=== PATIENT | female | born 1940 | race Caucasian/White ===

== ENCOUNTER 2016-10-26 15:49 | Emergency (ER) | payer OTHER ==
[~2016-10-26] VITALS: Ht 149.9 cm; Wt 70.3 kg
[~2016-10-26 15:49] MED LIST: ALLO100T PO; AMLO5TAB2 PO; ASPI-612 PO; ATOR40TA59 PO; CLON0.2T PO; COLC0.6T34 PO; FOLI1TAB16 PO; FURO40TA4 PO; HYDR-2758 PO; HYDR200T5 PO; LEVO500T59 PO; LEVO75TA5 PO; MECL25TA3 PO; METF500T4 PO; METO200T3 PO; NYST15PO9 TP; OXYC-323 PO; PANT20TA3 PO; PANT40TA5 PO; POTA20TA12 PO; POTASSIUM CHLO10 MEQ PO; PRED2.5T PO; RIVA15TA; SOLI5TAB2 PO; SPIR25TA3 PO; TOFA5TAB PO; VALS160T3 PO; WARF2.5T83 PO; WARF3TAB7 PO; WARF5TAB7; WARF5TAB7 PO
[2016-10-26 16:08] VITALS: BP 131/79
--- NOTE | 2016-10-26 17:00 | RAD ---
Indication trauma. Fall. Single AP view of the pelvis was obtained. Additional AP and frog-leg imaging of the right hip was performed. There are some degenerative changes involving the right hip. An acute finding is not seen. Chronic deformity appearing similar to a study 10/03/2014 is noted at the symphysis. If the clinical index of suspicion for fracture remains high additional imaging with CT or MRI could be performed. IMPRESSION: No acute finding seen involving the right hip
--- NOTE | 2016-10-26 17:39 | PHYS DOC ---
Past Medical History Past Medical History: Arthritis, CAD, COPD, Hypertension Additional Past Medical Histor: esophagitis, hemorrhoids, hyperlipidemia, hiatal hernia, gastroparesis, RA Past Surgical History: Appendectomy, Hysterectomy, Tonsillectomy Additional Past Surgical Histo: cardiac cath, L ROTATOR CUFF Alcohol Use: None Drug Use: None Adult General Chief Complaint Chief Complaint: HIP PAIN HPI HPI Patient is a 76 year old female who presents with son for right hand pain and right hip/groin pain after fall 5 days ago. She slipped while transferring to meooter from bed and landed on her buttock and hand. She has constant pain since that time. She felt a pop in her right hip today, so is concerned she may have broken her hip. She has been assisted at home with normal level of care. She denies numbness, tingling, weakness, head injury, neck pain, headache , vision changes, dizziness, nausea or vomiting, abdominal pain, chest pain, dyspnea, back pain. Denies other joint pains. Review of Systems Review of Systems Constitutional: Denies fever or chills [] Eyes: Denies change in visual acuity, redness, or eye pain [] HENT: Denies nasal congestion or sore throat [] Respiratory: Denies cough or shortness of breath [] Cardiovascular: No additional information not addressed in HPI [] GI: Denies abdominal pain, nausea, vomiting, bloody stools or diarrhea [] : Denies dysuria or hematuria [] Musculoskeletal: Denies back pain [] Integument: Denies rash or skin lesions [] Neurologic: Denies headache, focal weakness or sensory changes [] Endocrine: Denies polyuria or polydipsia [] Allergies Allergies Allergies Coded Allergies Type Severity Reaction Last Updated Verified Cephalexin Monohydrate Allergy Intermediate Hives 05/12/14 Yes codeine Allergy Intermediate 05/12/14 Yes latex Allergy Intermediate 05/12/14 Yes Physical Exam Physical Exam Constitutional: Well developed, well nourished, no acute distress, non-toxic appearance. [] HENT: Normocephalic, atraumatic, bilateral external ears normal, oropharynx moist, nose normal. [] Eyes: PERRLA, EOMI. [] Neck: Normal range of motion, no tenderness, supple [] Cardiovascular:Heart rate regular rhythm [] Lungs & Thorax: Bilateral breath sounds clear to auscultation [] Abdomen: Bowel sounds normal, soft, no tenderness. [] Skin: Warm, dry, no erythema, no rash. [] Back: No tenderness, no CVA tenderness. [] Extremities: RUE with ecchymosis to dorsum of hand laterally; tenderness over 4th and 5th distal metacarpals; No other upper extremity tenderness; Can make fist/ok sign/ thumb up/finger cross and spread; Can flex/ex wrist; Good radial pulse and brisk cap refill equal bilaterally; sensation intact to light touch m/u/r nerves ; No extensor lag or rotational deformity RLE with no obvious deformity or discoloration; some groin tenderness with no visual or palpable abnormality; equal leg length; Able to flex/ex/IR/ER hip with pain, knee full rom, ankle df/pf, toes df/pf; SILT to light touch; dp and pt pulses equal bilaterally Neurologic: Alert and oriented X 3, normal motor function, normal sensory function, no focal deficits noted. [] Psychologic: Affect normal, judgement normal, mood normal. [] Current Patient Data Vital Signs Vital Signs Date Time Temp Pulse Resp B/P (MAP) Pulse Ox O2 Delivery O2 Flow Rate FiO2 10/26/16 16:08 99.2 64 16 96 Room Air 99.2 Radiology/Procedures Radiology/Procedures Right hand x-ray as interpreted by me with fifth metacarpal fracture, distal Right hip and pelvis x-ray as interpreted by me with no obvious fracture or dislocation, but degenerative changes are present CT pelvis without contrast IMPRESSION: 1. No evidence of displaced pelvic fracture. If there is persistent clinical concern for occult fracture or insufficiency fracture, MRI could better evaluate. 2. Possible slight cortical defect at the anterior left sacrum versus artifact. A small insufficiency fracture is not excluded. 3. Degenerative changes as described above. 4. Diverticulosis. Electronically signed by: Carlos Jensen MD (10/26/2016 5:49 PM) Course & Med Decision Making Course & Med Decision Making Pertinent Labs and Imaging studies reviewed. (See chart for details) She had ulnar gutter splint placed to RUE; maintained sensation to fingertips with brisk cap refill. She was offered admission for hip pain, but wanted to go home. She states she has enough help at home already. Discussed return precautions. She and son understand and agree with plan. Dragon Disclaimer Cate Disclaimer This electronic medical record was generated, in whole or in part, using a voice recognition dictation system. Departure Departure Impression: Primary Impression: Closed fracture of metacarpal of right hand Additional Impression: Right hip pain Disposition: 01 HOME, SELF-CARE Condition: STABLE Referrals: NICOLLE WHITE MD (PCP) WERO HESTER MD Patient Instructions: Hand Fracture, Metacarpals, [id number], Hip Pain Additional Instructions: Follow-up with orthopedics clinic within one week. Also follow-up with your primary care doctor. Please call for appointments. Return for any concerns. Problem Qualifiers Primary Impression: Closed fracture of metacarpal of right hand Encounter type: initial encounter Qualified Codes: S62.309A - Unspecified fracture of unspecified metacarpal bone, initial encounter for closed fracture Jl NAIK MD Oct 26, 2016 17:39
--- NOTE | 2016-10-26 17:53 | RAD ---
CT PELVIS WO CONTRAST dated 10/26/2016 4:43 PM Indication: Pain recent fall right hip pain and groin pain, fall Comparison: No comparison is available. Technique: Contiguous axial imaging of the pelvis performed with thin cut coronal and sagittal reconstructions. One or more of the following individualized dose reduction techniques were utilized for this examination: 1. Automated exposure control 2. Adjustment of the mA and/or kV according to patient size 3. Use of iterative reconstruction technique Findings: Bony alignment is anatomic. No displaced fracture. The pelvic ring is intact. Femoral necks are grossly intact. No definite fracture line. There is very slight cortical irregularity at the anterior superior left sacrum. Mild degenerative changes of the bilateral hip joint. Moderate degenerative change of the pubic symphysis with mild to moderate degenerative change of the bilateral SI joint. No sacral or coccygeal fracture. Moderate spondylotic change of the lower lumbar spine. Urinary bladder is moderately distended. There are scattered diverticula within the distal colon. Uterus is not identified and may be atrophic or surgically absent. No free fluid or lymphadenopathy. Small umbilical hernia containing only fat. IMPRESSION: 1. No evidence of displaced pelvic fracture. If there is persistent clinical concern for occult fracture or insufficiency fracture, MRI could better evaluate. 2. Possible slight cortical defect at the anterior left sacrum versus artifact. A small insufficiency fracture is not excluded. 3. Degenerative changes as described above. 4. Diverticulosis. Electronically signed by: Carlos Jensen MD (10/26/2016 5:49 PM)
--- NOTE | 2016-10-27 09:01 | RAD ---
Right hand, 3 views, 10/26/2016: History: Fall, pain The bony structures are demineralized. There is deformity of the neck of the distal fifth metacarpal compatible with an impacted fracture. This is most likely a recent fracture, however, that cannot be stated with certainty. There is no significant displacement. No other acute fracture or dislocation is identified. There are degenerative changes at scattered interphalangeal joints. More extensive degenerative change is present at the wrist with chondrocalcinosis and at the first CMC joint with periarticular calcifications. IMPRESSION: 1. Demineralization. 2. Nondisplaced distal fifth metacarpal fracture.
== END 2016-10-26 18:30 | disposition home or self-care (01) ==
LOC: ER 15:49
DX: S62.396A Other fracture of fifth metacarpal bone, right hand, initial encounter for closed fracture (principal); M25.551 Pain in right hip; E78.5 Hyperlipidemia, unspecified; I10 Essential (primary) hypertension; J44.9 Chronic obstructive pulmonary disease, unspecified; M19.90 Unspecified osteoarthritis, unspecified site; I25.10 Atherosclerotic heart disease of native coronary artery without angina pectoris; Z90.710 Acquired absence of both cervix and uterus; M06.9 Rheumatoid arthritis, unspecified; K31.84 Gastroparesis; Z91.040 Latex allergy status; Z98.61 Coronary angioplasty status; Z88.5 Allergy status to narcotic agent; W06.XXXA Fall from bed, initial encounter; Z88.8 Allergy status to other drugs, medicaments and biological substances; Y93.89 Activity, other specified; Y92.89 Other specified places as the place of occurrence of the external cause; Y99.8 Other external cause status
CPT/HCPCS: 29125; 72192; 73130; 73502; 99284-25

== ENCOUNTER 2017-04-26 10:59 | Emergency (ER) | payer OTHER ==
[~2017-04-26] VITALS: Ht 149.9 cm; Wt 62.1 kg
[~2017-04-26 10:59] MED LIST changes: -METO200T3 PO; +METO200T5 PO
[2017-04-26] MEDS ORDERED: PHENAZOPYRIDINE 200 MG TABLET. PO ONE (11:30)
[2017-04-26 11:34] LABS: BILIRUBIN,URINE NEGATIVE (NEG); GLUCOSE,URINE NEGATIVE (NEG); NITRITE,URINE NEGATIVE (NEG); PROTEIN,URINE 30 mg/dL (NEG-TRACE); UROBILINOGEN,URINE 0.2 mg/dL (0.2 mg/dL)
[2017-04-26 11:53] LABS: BACTERIA,URINE FEW /HPF (0-FEW); WBC,URINE TNTC /HPF (0-4)
[2017-04-26] MEDS ORDERED: CIPROFLOXACIN HCL 250 MG TABLET. PO ONE (12:15)
[2017-04-26] MEDS ORDERED: PHEN-318 PO (12:21)
[2017-04-26] MEDS ORDERED: CIPR250T30 PO (12:21)
--- NOTE | 2017-04-26 12:21 | PHYS DOC ---
Past Medical History Past Medical History: Arthritis, CAD, COPD, Hypertension, [place], UTI Additional Past Medical Histor: esophagitis, hemorrhoids, hyperlipidemia, hiatal hernia, gastroparesis, RA Past Surgical History: Appendectomy, Hysterectomy, Tonsillectomy Additional Past Surgical Histo: cardiac cath, L ROTATOR CUFF Alcohol Use: None Drug Use: None Adult General Chief Complaint Chief Complaint: PAIN ON URINATION HPI HPI Patient is a 77 year old female who presents by EMS with the complaint of burning with urination for about one week. Patient states she has urinary incontinence and wears a pad inside of a diaper. This is chronic for her for about a year. She has noticed over the last week burning with urination. She recently had a UTI and believes she was treated with a Z-Keyon. She did not have a urinalysis or culture with that diagnosis. Patient denies fever, denies nausea or vomiting. She doesn't believe she has a vaginal discharge or other vaginal complaints. PCP Dr Chaudhry Review of Systems Review of Systems Constitutional: Denies fever or chills [] Respiratory: Denies cough or shortness of breath [] Cardiovascular: Denies chest pain GI: As in history of present illness : As in history of present illness Current Medications Current Medications Current Medications Medications (Trade) Dose Ordered Sig/Jana Start Time Stop Time Status Last Admin Dose Admin Ciprofloxacin (Cipro) 500 mg 1X ONCE 04/26/17 12:15 04/26/17 12:16 DC 04/26/17 12:20 500 MG Phenazopyridine HCl (Pyridium) 200 mg 1X ONCE 04/26/17 11:30 04/26/17 11:31 DC 04/26/17 11:33 200 MG Allergies Allergies Allergies Coded Allergies Type Severity Reaction Last Updated Verified Cephalexin Monohydrate Allergy Intermediate Hives 05/12/14 Yes codeine Allergy Intermediate 05/12/14 Yes latex Allergy Intermediate 05/12/14 Yes Physical Exam Physical Exam Constitutional: Well developed, well nourished, no acute distress, non-toxic appearance. Alert, warm and dry, afebrile. HENT: Normocephalic, atraumatic, bilateral external ears normal, nose normal. [ ] Eyes: conjunctiva normal, no discharge. [] Neck: Normal range of motion, no stridor. [] Cardiovascular:Heart rate regular rhythm, no murmur [] Lungs & Thorax: Bilateral breath sounds clear to auscultation [] Abdomen: Bowel sounds normal, soft, no tenderness, no masses, no pulsatile masses. : External genitalia normal without discharge, rash, or skin abnormalities. Introitus/urethra normal in appearance. Skin: Warm, dry, no erythema, no rash. [] Extremities: No tenderness, no cyanosis, no clubbing, ROM intact, no edema. [] Neurologic: Alert and oriented X 3, normal motor function, no focal deficits noted. [] Current Patient Data Vital Signs Vital Signs Date Time Temp Pulse Resp B/P (MAP) Pulse Ox O2 Delivery O2 Flow Rate FiO2 04/26/17 12:32 64 123/60 (81) Room Air 04/26/17 11:00 97.8 20 93 97.8 Lab Values Laboratory Tests Test 04/26/17 11:10 Urine Collection Type U cath Urine Color Yellow Urine Clarity Turbid Urine pH 6.0 Urine Specific [place] 1.010 Urine Protein 30 mg/dL (NEG-TRACE) Urine Glucose (UA) Negative mg/dL (NEG) Urine Ketones (Stick) Negative mg/dL (NEG) Urine Blood Small (NEG) Urine Nitrite Negative (NEG) Urine Bilirubin Negative (NEG) Urine Urobilinogen Dipstick 0.2 mg/dL (0.2 mg/dL) Urine Leukocyte Esterase Large (NEG) Urine RBC 6-10 /HPF (0-2) Urine WBC Tntc /HPF (0-4) Urine Bacteria Few /HPF (0-FEW) EKG EKG [] Radiology/Procedures Radiology/Procedures [] Course & Med Decision Making Course & Med Decision Making Pertinent Labs and Imaging studies reviewed. (See chart for details) 77-year-old female presents with burning and pain with urination for one week. Her urinalysis is definitely positive for UTI. Culture was ordered. She was given a dose of Pyridium and a by mouth Cipro. We will treat her for a week with Cipro. [] Dragon Disclaimer Dragon Disclaimer This electronic medical record was generated, in whole or in part, using a voice recognition dictation system. Departure Departure Impression: Primary Impression: UTI (urinary tract infection) Disposition: 01 HOME, SELF-CARE Condition: STABLE Referrals: NICOLLE CHAUDHRY MD (PCP) Patient Instructions: Urinary Tract Infection, [id number] Additional Instructions: If not better in 2-3 days, call your doctor's office and asked them to check the culture results to see if Cipro and will work for your UTI. Scripts Ciprofloxacin Hcl (CIPRO) 250 Mg Tablet 1 TAB PO BID for UTI, #14 TAB Prov: ADI DANIELS MD 04/26/17 Phenazopyridine Hcl (PYRIDIUM) 200 Mg Tablet 200 MG PO TID for burning urination for 3 Days, #9 TAB Prov: ADI DANIELS MD 04/26/17 ADI DANIELS MD Apr 26, 2017 12:21
[2017-04-26 12:32] VITALS: BP 123/60
== END 2017-04-26 12:43 | disposition home or self-care (01) ==
LOC: ER 10:59
DX: N39.0 Urinary tract infection, site not specified (principal); M19.90 Unspecified osteoarthritis, unspecified site; I25.10 Atherosclerotic heart disease of native coronary artery without angina pectoris; J44.9 Chronic obstructive pulmonary disease, unspecified; I10 Essential (primary) hypertension; I25.2 Old myocardial infarction; E78.5 Hyperlipidemia, unspecified; Z88.1 Allergy status to other antibiotic agents; Z88.5 Allergy status to narcotic agent; Z91.040 Latex allergy status
CPT/HCPCS: 51701; 81001; 87086; 99284-25

== ENCOUNTER 2017-07-20 11:14 | Emergency (ER) | payer OTHER | END 2017-07-20 14:08 | disposition home or self-care (01) | LOC: ER 11:14 | DX: S40.011A Contusion of right shoulder, initial encounter (principal); M17.11 Unilateral primary osteoarthritis, right knee; M19.011 Primary osteoarthritis, right shoulder; E78.5 Hyperlipidemia, unspecified; G89.29 Other chronic pain; I10 Essential (primary) hypertension; I25.10 Atherosclerotic heart disease of native coronary artery without angina pectoris; J44.9 Chronic obstructive pulmonary disease, unspecified; Z90.710 Acquired absence of both cervix and uterus; Z90.49 Acquired absence of other specified parts of digestive tract; Z88.1 Allergy status to other antibiotic agents; Z88.5 Allergy status to narcotic agent; Z91.040 Latex allergy status; W18.39XA Other fall on same level, initial encounter; Y93.89 Activity, other specified; Y99.8 Other external cause status; Y92.89 Other specified places as the place of occurrence of the external cause | CPT/HCPCS: 73030; 73080; 73502; 73562; 99284 ==

== ENCOUNTER → 2017-07-28 | Outpatient (CLI) | payer OTHER | END | disposition home or self-care (01) | LOC: MRI 09:50 | DX: S43.491A Other sprain of right shoulder joint, initial encounter (principal); M75.101 Unspecified rotator cuff tear or rupture of right shoulder, not specified as traumatic; M62.511 Muscle wasting and atrophy, not elsewhere classified, right shoulder; M19.011 Primary osteoarthritis, right shoulder; M25.411 Effusion, right shoulder; M25.711 Osteophyte, right shoulder; R60.0 Localized edema; Z91.81 History of falling; X58.XXXA Exposure to other specified factors, initial encounter; Y93.89 Activity, other specified; Y92.89 Other specified places as the place of occurrence of the external cause; Y99.8 Other external cause status | CPT/HCPCS: 73221 ==

== ENCOUNTER → 2017-08-31 | Outpatient (CLI) | payer OTHER ==
[~2017-08-31] MED LIST changes: -ALLO100T PO; -AMLO5TAB2 PO; -ASPI-612 PO; -ATOR40TA59 PO; -CLON0.2T PO; -COLC0.6T34 PO; -FOLI1TAB16 PO; -FURO40TA4 PO; -HYDR-2758 PO; -HYDR200T5 PO; -LEVO500T59 PO; -LEVO75TA5 PO; +LIDOCAINE WITH 8.4% SOD BICARB 3 ML DISP.SYRIN. INJ; -MECL25TA3 PO; -METF500T4 PO; -METO200T5 PO; -NYST15PO9 TP; -OXYC-323 PO; -PANT20TA3 PO; -PANT40TA5 PO; -POTA20TA12 PO; -POTASSIUM CHLO10 MEQ PO; -PRED2.5T PO; -RIVA15TA; -SOLI5TAB2 PO; -SPIR25TA3 PO; -TOFA5TAB PO; -VALS160T3 PO; -WARF2.5T83 PO; -WARF3TAB7 PO; -WARF5TAB7; -WARF5TAB7 PO
[2017-08-31] MEDS: BUPIVACAINE 0.5% 50 ML VIAL. IJ (09:40)
[2017-08-31] MEDS: methylPREDNISolone ACETATE 40 MG/ML VIAL. INT ART (09:41)
[2017-08-31] MEDS: LIDOCAINE WITH 8.4% SOD BICARB 3 ML DISP.SYRIN. INJ (09:41)
[2017-08-31] MEDS: IOHEXOL 300 MG/ML 10ML VIAL. IJ (09:41)
== END | disposition home or self-care (01) ==
LOC: RAD 15:01
DX: M19.011 Primary osteoarthritis, right shoulder (principal)
CPT/HCPCS: 20605; 20610; 77002; J1030; J3490; Q9967

== ENCOUNTER 2017-12-02 20:13 | Inpatient (IN) | payer OTHER ==
[2017-12-02] MEDS: IV NORMAL SALINE 1000ML BAG 1,000 ML IV (20:47)
[2017-12-02] MEDS: FAMOTIDINE 20 MG/2 ML VIAL IVP (20:47)
[2017-12-02] MEDS: ONDANSETRON PF 4 MG/2 ML VIAL. IV (20:47)
[2017-12-02 21:56] LABS: ADD MAN DIFF? NO
[2017-12-02 21:58] LABS: BASO # 0.1 x10^3/uL (0.0-0.2); BASO % 0 % (0-3); EOS # 0.2 x10^3/uL (0.0-0.7); EOS % 1 % (0-3); HEMATOCRIT 30.4 % (36.0-47.0); HEMOGLOBIN 9.9 g/dL (12.0-15.5); LYMPH # 1.1 x10^3/uL (1.0-4.8); LYMPH % 8 % (24-48); MEAN CORPUSCULAR HEMOGLOBIN 26 pg (25-35); MEAN CORPUSCULAR HGB CONC 32 g/dL (31-37); MEAN CORPUSCULAR VOLUME 81 fL (79-100); MONO # 1.3 x10^3/uL (0.0-1.1); MONO % 9 % (0-9); NEUT % 81 % (31-73); PLATELET COUNT 222 x10^3/uL (140-400); RED BLOOD COUNT 3.77 x10^6/uL (3.50-5.40); RED CELL DISTRIBUTION WIDTH 21.5 % (11.5-14.5); WHITE BLOOD COUNT 13.6 x10^3/uL (4.0-11.0)
[2017-12-02 22:07] LABS: INR 1.2 (0.8-1.1); PARTIAL THROMBOPLASTIN TIME 26 SEC (24-38); PROTHROMBIN TIME PATIENT 14.9 SEC (11.7-14.0)
[2017-12-02 22:11] LABS: ANION GAP 6 (6-14); BLOOD UREA NITROGEN 38 mg/dL (7-20); BUN/CREATININE RATIO 13 (6-20); CALCIUM 8.6 mg/dL (8.5-10.1); CARBON DIOXIDE 25 mmol/L (21-32); CHLORIDE 109 mmol/L (98-107); CREATININE 2.9 mg/dL (0.6-1.0); GFR 15.7; GLUCOSE 95 mg/dL (70-99); POTASSIUM 5.4 mmol/L (3.5-5.1); SODIUM 140 mmol/L (136-145)
[2017-12-02 22:14] LABS: BILIRUBIN,URINE NEGATIVE (NEG); CLARITY,URINE CLEAR; COLOR,URINE YELLOW; GLUCOSE,URINE NEGATIVE (NEG); NITRITE,URINE NEGATIVE (NEG); PROTEIN,URINE 100 mg/dL (NEG-TRACE); UROBILINOGEN,URINE 0.2 mg/dL (0.2 mg/dL)
[2017-12-02 22:15] LABS: ANISOCYTOSIS MOD; PLT ESTIMATE ADEQUATE (ADEQUATE); POLYCHROMASIA SLIGHT
[2017-12-02 22:18] LABS: ALBUMIN 2.4 g/dL (3.4-5.0); ALBUMIN/GLOBULIN RATIO 0.7 (1.0-1.7); ALK PHOS 135 U/L (46-116); ALT (SGPT) 7 U/L (14-59); AST (SGOT) 17 U/L (15-37); LIPASE 96 U/L (73-393); MAGNESIUM 1.4 mg/dL (1.8-2.4); TOTAL BILIRUBIN 0.5 mg/dL (0.2-1.0); TOTAL PROTEIN 5.9 g/dL (6.4-8.2)
[2017-12-02 22:19] LABS: TROPONINI 0.029 ng/mL (0.000-0.055)
[2017-12-02 22:21] LABS: BACTERIA,URINE 0 /HPF (0-FEW); RBC,URINE >40 /HPF (0-2); SQUAMOUS EPITHELIAL CELL,UR OCC /LPF
[2017-12-02 22:27] LABS: CKMB MASS 1.4 ng/mL (0.0-3.6); CREATINE KINASE 41 U/L (26-192)
[2017-12-02] MEDS ORDERED: ONDANSETRON PF 4 MG/2 ML VIAL. IV (23:00)
[2017-12-02] MEDS ORDERED: DEXTROSE 50% 25 GM / 50ML DISP.SYRIN. IV (23:00)
[2017-12-02] MEDS: DEXTROSE 50% 25 GM / 50ML DISP.SYRIN. IV (23:52)
[2017-12-02] MEDS: INSULIN REGULAR 100 UNIT/ML 3ML VIAL. IV (23:52)
[2017-12-03] MEDS: NYSTATIN TOPICAL POWDER 15GM BOTTLE. TP ×3 (00:56→20:56)
[2017-12-03] MEDS: MAGNESIUM SULFATE 2GM 50 ML IV ×2 (00:57→12:16)
[2017-12-03 01:13] LABS: POC GLUCOSE 154 mg/dL (70-99)
[2017-12-03 06:07] LABS: POC GLUCOSE 65 mg/dL (70-99)
[2017-12-03 06:31] LABS: POC GLUCOSE 80 mg/dL (70-99)
[2017-12-03 06:31] LABS: POC GLUCOSE 65 mg/dL (70-99)
[2017-12-03] MEDS: INSULIN LISPRO 300 UNITS/3 ML INSULN.PEN. SQ ×3 (08:00→17:00)
[2017-12-03] MEDS: IV NORMAL SALINE 1000ML BAG 1,000 ML IV ×3 (08:26→20:56)
[2017-12-03] MEDS: IV NORMAL SALINE 500ML BAG 500 ML IV (08:26)
[2017-12-03] MEDS ORDERED: ONDANSETRON PF 4 MG/2 ML VIAL. IV (08:45)
[2017-12-03] MEDS ORDERED: C.DIFF MED SCREEN BY RX. MC (09:00)
[2017-12-03] MEDS: MAGNESIUM SULFATE 4GM 100 ML IV (10:30)
[2017-12-03] MEDS: FLECAINIDE ACETATE 50 MG TABLET. PO ×2 (11:29→20:56)
[2017-12-03] MEDS: LEVOTHYROXINE 75 MCG TABLET PO (11:29)
[2017-12-03] MEDS: PANTOPRAZOLE 40 MG TABLET.DR. PO (11:30)
[2017-12-03] MEDS: predniSONE 5 MG TABLET PO (11:30)
[2017-12-03 11:55] LABS: POC GLUCOSE 69 mg/dL (70-99)
[2017-12-03 12:20] LABS: POC GLUCOSE 90 mg/dL (70-99)
[2017-12-03 17:32] LABS: POC GLUCOSE 91 mg/dL (70-99)
[2017-12-04 00:10] LABS: POC GLUCOSE 110 mg/dL (70-99)
[2017-12-04] MEDS: IV NORMAL SALINE 1000ML BAG 1,000 ML IV ×3 (03:14→17:50)
[2017-12-04 05:03] LABS: ADD MAN DIFF? NO
[2017-12-04 05:05] LABS: BASO % 0 % (0-3); EOS # 0.1 x10^3/uL (0.0-0.7); EOS % 1 % (0-3); HEMOGLOBIN 8.2 g/dL (12.0-15.5); LYMPH # 1.3 x10^3/uL (1.0-4.8); LYMPH % 12 % (24-48); MEAN CORPUSCULAR HEMOGLOBIN 26 pg (25-35); MEAN CORPUSCULAR HGB CONC 32 g/dL (31-37); MEAN CORPUSCULAR VOLUME 82 fL (79-100); MONO # 1.1 x10^3/uL (0.0-1.1); MONO % 10 % (0-9); NEUT # 8.8 x10^3uL (1.8-7.7); NEUT % 77 % (31-73); PLATELET COUNT 186 x10^3/uL (140-400); RED BLOOD COUNT 3.18 x10^6/uL (3.50-5.40); RED CELL DISTRIBUTION WIDTH 21.4 % (11.5-14.5); WHITE BLOOD COUNT 11.4 x10^3/uL (4.0-11.0)
[2017-12-04 05:27] LABS: ALBUMIN 1.9 g/dL (3.4-5.0); ALBUMIN/GLOBULIN RATIO 0.5 (1.0-1.7); ALK PHOS 117 U/L (46-116); ALT (SGPT) 12 U/L (14-59); ANION GAP 6 (6-14); AST (SGOT) 16 U/L (15-37); BLOOD UREA NITROGEN 28 mg/dL (7-20); BUN/CREATININE RATIO 10 (6-20); CALCIUM 8.3 mg/dL (8.5-10.1); CARBON DIOXIDE 23 mmol/L (21-32); CHLORIDE 112 mmol/L (98-107); CREATININE 2.7 mg/dL (0.6-1.0); GAMMA GLUTAMYL TRANSPEPTIDASE 16 U/L (5-55); GLUCOSE 75 mg/dL (70-99); MAGNESIUM 2.7 mg/dL (1.8-2.4); POTASSIUM 4.9 mmol/L (3.5-5.1); SODIUM 141 mmol/L (136-145); TOTAL BILIRUBIN 0.3 mg/dL (0.2-1.0); TOTAL PROTEIN 5.4 g/dL (6.4-8.2)
[2017-12-04 05:57] LABS: POC GLUCOSE 82 mg/dL (70-99)
[2017-12-04] MEDS: LEVOTHYROXINE 75 MCG TABLET PO (06:26)
[2017-12-04] MEDS: INSULIN LISPRO 300 UNITS/3 ML INSULN.PEN. SQ ×3 (08:00→17:00)
[2017-12-04] MEDS: predniSONE 5 MG TABLET PO (08:11)
[2017-12-04] MEDS: PANTOPRAZOLE 40 MG TABLET.DR. PO (08:11)
[2017-12-04] MEDS: FLECAINIDE ACETATE 50 MG TABLET. PO ×2 (08:12→20:20)
[2017-12-04] MEDS: ACETAMINOPHEN 325 MG TABLET. PO (08:12)
[2017-12-04 09:06] LABS: BILIRUBIN,URINE NEGATIVE (NEG); CLARITY,URINE CLOUDY; COLOR,URINE YELLOW; GLUCOSE,URINE NEGATIVE (NEG); NITRITE,URINE NEGATIVE (NEG); PROTEIN,URINE 100 mg/dL (NEG-TRACE); UROBILINOGEN,URINE 0.2 mg/dL (0.2 mg/dL)
[2017-12-04 09:24] LABS: BACTERIA,URINE FEW /HPF (0-FEW); RBC,URINE >40 /HPF (0-2); SQUAMOUS EPITHELIAL CELL,UR FEW /LPF; WBC,URINE 20-40 /HPF (0-4)
[2017-12-04 09:25] LABS: HYALINE CASTS, URINE OCCASIONAL /HPF
[2017-12-04] MEDS: NYSTATIN TOPICAL POWDER 15GM BOTTLE. TP ×2 (10:38→20:22)
[2017-12-04 11:16] LABS: POC GLUCOSE 145 mg/dL (70-99)
[2017-12-04 16:40] LABS: POC GLUCOSE 102 mg/dL (70-99)
[2017-12-04 16:40] LABS: % SAT IRON 18 % (15-34); IRON,SERUM 37 ug/dL (50-170)
[2017-12-04 20:33] LABS: POC GLUCOSE 87 mg/dL (70-99)
[2017-12-05] MEDS: IV NORMAL SALINE 1000ML BAG 1,000 ML IV ×3 (00:30→13:50)
[2017-12-05] MEDS: LEVOTHYROXINE 75 MCG TABLET PO (06:06)
[2017-12-05] MEDS: INSULIN LISPRO 300 UNITS/3 ML INSULN.PEN. SQ ×3 (08:00→17:00)
[2017-12-05 08:04] LABS: POC GLUCOSE 81 mg/dL (70-99)
[2017-12-05] MEDS: FLECAINIDE ACETATE 50 MG TABLET. PO ×2 (08:44→21:09)
[2017-12-05] MEDS: predniSONE 5 MG TABLET PO (08:45)
[2017-12-05] MEDS: NYSTATIN TOPICAL POWDER 15GM BOTTLE. TP ×2 (08:45→21:09)
[2017-12-05] MEDS: PANTOPRAZOLE 40 MG TABLET.DR. PO (08:45)
[2017-12-05 08:49] LABS: VITAMIN-B12 343 pg/mL (247-911)
[2017-12-05 08:49] LABS: FOLATE 13.58 ng/ml (3.2-20.0)
[2017-12-05 11:20] LABS: POC GLUCOSE 114 mg/dL (70-99)
[2017-12-05] MEDS: ACETAMINOPHEN 325 MG TABLET. PO (15:48)
[2017-12-05 17:01] LABS: POC GLUCOSE 114 mg/dL (70-99)
[2017-12-06 00:57] LABS: POC GLUCOSE 103 mg/dL (70-99)
[2017-12-06] MEDS: IV NORMAL SALINE 1000ML BAG 1,000 ML IV ×3 (04:19→17:51)
[2017-12-06 04:39] LABS: ADD MAN DIFF? NO
[2017-12-06 04:55] LABS: BASO % 0 % (0-3); EOS # 0.2 x10^3/uL (0.0-0.7); EOS % 1 % (0-3); HEMATOCRIT 25.1 % (36.0-47.0); HEMOGLOBIN 8.3 g/dL (12.0-15.5); LYMPH # 1.1 x10^3/uL (1.0-4.8); LYMPH % 11 % (24-48); MEAN CORPUSCULAR HEMOGLOBIN 27 pg (25-35); MEAN CORPUSCULAR HGB CONC 33 g/dL (31-37); MEAN CORPUSCULAR VOLUME 82 fL (79-100); MONO # 1.1 x10^3/uL (0.0-1.1); MONO % 11 % (0-9); NEUT # 8.1 x10^3uL (1.8-7.7); NEUT % 77 % (31-73); PLATELET COUNT 176 x10^3/uL (140-400); RED BLOOD COUNT 3.07 x10^6/uL (3.50-5.40); RED CELL DISTRIBUTION WIDTH 22.1 % (11.5-14.5); WHITE BLOOD COUNT 10.5 x10^3/uL (4.0-11.0)
[2017-12-06] MEDS: LEVOTHYROXINE 75 MCG TABLET PO (05:50)
[2017-12-06 06:06] LABS: ANION GAP 8 (6-14); BLOOD UREA NITROGEN 25 mg/dL (7-20); CALCIUM 8.1 mg/dL (8.5-10.1); CARBON DIOXIDE 21 mmol/L (21-32); CHLORIDE 113 mmol/L (98-107); CREATININE 2.5 mg/dL (0.6-1.0); GFR 18.6; GLUCOSE 67 mg/dL (70-99); POTASSIUM 4.4 mmol/L (3.5-5.1); SODIUM 142 mmol/L (136-145)
[2017-12-06 07:59] LABS: POC GLUCOSE 62 mg/dL (70-99)
[2017-12-06] MEDS: INSULIN LISPRO 300 UNITS/3 ML INSULN.PEN. SQ ×3 (08:00→16:36)
[2017-12-06] MEDS ORDERED: ACETAMINOPHEN 325 MG TABLET. PO (08:15)
[2017-12-06] MEDS: predniSONE 10 MG TABLET PO (08:47)
[2017-12-06] MEDS: FLECAINIDE ACETATE 50 MG TABLET. PO ×2 (08:48→21:11)
[2017-12-06] MEDS: PANTOPRAZOLE 40 MG TABLET.DR. PO (08:48)
[2017-12-06] MEDS: NYSTATIN TOPICAL POWDER 15GM BOTTLE. TP ×2 (08:49→21:12)
[2017-12-06 12:17] LABS: POC GLUCOSE 142 mg/dL (70-99)
[2017-12-06 14:17] LABS: BILIRUBIN,URINE NEGATIVE (NEG); CLARITY,URINE CLEAR; COLOR,URINE YELLOW; GLUCOSE,URINE NEGATIVE (NEG); NITRITE,URINE NEGATIVE (NEG); PROTEIN,URINE 100 mg/dL (NEG-TRACE); UROBILINOGEN,URINE 0.2 mg/dL (0.2 mg/dL)
[2017-12-06 14:36] LABS: RBC,URINE >40 /HPF (0-2)
[2017-12-06 14:37] LABS: AMORPHOUS SEDIMENT,UR PRESENT /HPF; BACTERIA,URINE 0 /HPF (0-FEW); HYALINE CASTS, URINE FEW /HPF; SQUAMOUS EPITHELIAL CELL,UR FEW /LPF
[2017-12-06 16:37] LABS: POC GLUCOSE 126 mg/dL (70-99)
[2017-12-06 21:41] LABS: POC GLUCOSE 130 mg/dL (70-99)
[2017-12-07] MEDS: IV NORMAL SALINE 1000ML BAG 1,000 ML IV ×2 (01:05→13:51)
[2017-12-07 06:06] LABS: ADD MAN DIFF? NO
[2017-12-07 06:12] LABS: BASO % 0 % (0-3); EOS # 0.2 x10^3/uL (0.0-0.7); EOS % 2 % (0-3); HEMATOCRIT 24.3 % (36.0-47.0); HEMOGLOBIN 7.9 g/dL (12.0-15.5); LYMPH # 1.2 x10^3/uL (1.0-4.8); LYMPH % 11 % (24-48); MEAN CORPUSCULAR HEMOGLOBIN 27 pg (25-35); MEAN CORPUSCULAR HGB CONC 33 g/dL (31-37); MEAN CORPUSCULAR VOLUME 81 fL (79-100); MONO # 1.2 x10^3/uL (0.0-1.1); MONO % 11 % (0-9); NEUT # 8.7 x10^3uL (1.8-7.7); NEUT % 77 % (31-73); PLATELET COUNT 168 x10^3/uL (140-400); RED BLOOD COUNT 2.98 x10^6/uL (3.50-5.40); RED CELL DISTRIBUTION WIDTH 21.5 % (11.5-14.5); WHITE BLOOD COUNT 11.4 x10^3/uL (4.0-11.0)
[2017-12-07] MEDS: NYSTATIN TOPICAL POWDER 15GM BOTTLE. TP (06:23)
[2017-12-07] MEDS: LEVOTHYROXINE 75 MCG TABLET PO (06:23)
[2017-12-07 06:44] LABS: ANION GAP 8 (6-14); BLOOD UREA NITROGEN 24 mg/dL (7-20); CALCIUM 8.1 mg/dL (8.5-10.1); CARBON DIOXIDE 21 mmol/L (21-32); CHLORIDE 114 mmol/L (98-107); CREATININE 2.4 mg/dL (0.6-1.0); GFR 19.5; GLUCOSE 69 mg/dL (70-99); POTASSIUM 4.5 mmol/L (3.5-5.1); SODIUM 143 mmol/L (136-145)
[2017-12-07 07:20] LABS: POC GLUCOSE 71 mg/dL (70-99)
[2017-12-07] MEDS: INSULIN LISPRO 300 UNITS/3 ML INSULN.PEN. SQ ×2 (08:00→12:00)
[2017-12-07] MEDS: predniSONE 10 MG TABLET PO (08:16)
[2017-12-07] MEDS: PANTOPRAZOLE 40 MG TABLET.DR. PO (08:17)
[2017-12-07] MEDS: FLECAINIDE ACETATE 50 MG TABLET. PO (08:17)
[2017-12-07] MEDS: METOPROLOL SUCC 24HR ER 100 MG TAB.ER.24H. PO (11:02)
[2017-12-07 11:17] LABS: POC GLUCOSE 82 mg/dL (70-99)
== END 2017-12-07 17:13 | disposition home or self-care (01) | DRG 682 ==
LOC: ER 20:13 → 5 SOUTH 23:00
DX: N17.0 Acute kidney failure with tubular necrosis (principal); E43 Unspecified severe protein-calorie malnutrition; I13.0 Hypertensive heart and chronic kidney disease with heart failure and stage 1 through stage 4 chronic kidney disease, or unspecified chronic kidney disease; K52.9 Noninfective gastroenteritis and colitis, unspecified; B37.3 Candidiasis of vulva and vagina; D50.9 Iron deficiency anemia, unspecified; D63.8 Anemia in other chronic diseases classified elsewhere; E03.9 Hypothyroidism, unspecified; E11.22 Type 2 diabetes mellitus with diabetic chronic kidney disease; E11.649 Type 2 diabetes mellitus with hypoglycemia without coma; E78.00 Pure hypercholesterolemia, unspecified; E78.5 Hyperlipidemia, unspecified; E83.42 Hypomagnesemia; E86.0 Dehydration; E87.5 Hyperkalemia; I95.9 Hypotension, unspecified; R33.9 Retention of urine, unspecified; N18.3 Chronic kidney disease, stage 3 (moderate); R31.29 Other microscopic hematuria; I50.9 Heart failure, unspecified; I25.10 Atherosclerotic heart disease of native coronary artery without angina pectoris; I48.0 Paroxysmal atrial fibrillation; J44.9 Chronic obstructive pulmonary disease, unspecified; K21.9 Gastro-esophageal reflux disease without esophagitis; M06.9 Rheumatoid arthritis, unspecified; M19.90 Unspecified osteoarthritis, unspecified site; M79.7 Fibromyalgia; Z79.52 Long term (current) use of systemic steroids; I25.2 Old myocardial infarction; Z79.82 Long term (current) use of aspirin; Z83.3 Family history of diabetes mellitus; Z90.49 Acquired absence of other specified parts of digestive tract; Z90.710 Acquired absence of both cervix and uterus; Z90.89 Acquired absence of other organs; Z87.440 Personal history of urinary (tract) infections; Z88.5 Allergy status to narcotic agent; Z88.8 Allergy status to other drugs, medicaments and biological substances; Z91.040 Latex allergy status; Z80.9 Family history of malignant neoplasm, unspecified; Z82.49 Family history of ischemic heart disease and other diseases of the circulatory system; Z79.899 Other long term (current) drug therapy; Z68.36 Body mass index [BMI] 36.0-36.9, adult
CPT/HCPCS: 36415; 51701; 74176; 80048; 80053; 81001; 82553; 82607; 82746; 82962; 82977; 83540; 83550; 83690; 83735; 84484; 85025; 85610; 85730; 87086; 93005; 96361; 96374; 96375; 97162-GP; 97165-GO; 97530-GP; 99291; 99291-25; J1815; J2405; J3475; J7030; J7040; J7042; J7512; S0028

== ENCOUNTER 2018-01-12 16:18 | Inpatient (IN) | payer OTHER ==
[~2018-01-12] VITALS: Ht 149.9 cm; Wt 78.6 kg
[~2018-01-12 16:18] MED LIST changes: +ALLO100T PO; +AMLO5TAB7 PO; +ASPI-612 PO; +ASPI-630 PO; +ATOR20TA58 PO; +ATOR40TA59 PO; +CIPR250T30 PO; +CLON0.2T PO; +COLC0.6T34 PO; +COLE1TAB PO; +DICY10CA3 PO; +DIPH1TAB PO; +FLEC50TA PO; +FOLI1TAB16 PO; +FURO40TA4 PO; +GABA100C6 PO; +HYDR-2758 PO; +HYDR200T5 PO; +LACT1TAB6 PO; +LEVO500T59 PO; +LEVO75TA5 PO; -LIDOCAINE WITH 8.4% SOD BICARB 3 ML DISP.SYRIN. INJ; +MECL25TA3 PO; +METF500T16 PO; +METO-247 PO; +METO200T46 PO; +NYST15PO9 TP; +OMEP40CA5 PO; +OXYC-323 PO; +PANT20TA3 PO; +PANT40TA5 PO; +PHEN-318 PO; +POTA10TA12 PO; +POTA20TA12 PO; +PRED2.5T PO; +PRED5TAB PO; +RIVA15TA; +SOLI5TAB2 PO; +SPIR25TA5 PO; +SUCR1ORA5 PO; +TOFA5TAB PO; +VALS160T3 PO; +WARF-31; +WARF-31 PO; +WARF2.5T83 PO; +WARF3TAB50 PO
--- NOTE | 2018-01-12 17:20 | PHYS DOC ---
Past Medical History Past Medical History: Arthritis, CAD, COPD, Diabetes-Type II, GERD, High Cholesterol, Hypertension, Hypothyroid, [place], UTI Additional Past Medical Histor: esophagitis, hemorrhoids, hyperlipidemia, hiatal hernia, gastroparesis, RA Past Surgical History: Appendectomy, Hysterectomy, Tonsillectomy Additional Past Surgical Histo: cardiac cath, L ROTATOR CUFF Alcohol Use: None Drug Use: None Adult General Chief Complaint Chief Complaint: OTHER COMPLAINTS HPI HPI 77-year-old female presents to ER via EMS from her residence where she lives alone. Patient reports she called for assistance as she has had issues getting her medications from local pharmacies. On further discussion with patient she reports she has had decreased mobility with bilateral lower extremity swelling- with being out of her lasix for past 4 days. Patient reports she's had difficulty caring for herself as she has not had home assistance since Monday. Pt reports she has been able to use her w/c to get to microwave to make potpies - last food intake was this morning. She denies CP, palpitations, abd pain, or N /V. She reports she has had diarrhea and does have smell of feces on her at time of initial exam. Pt reports she wears brief and does have chronic incontinence. Pt reports she wears 3L O2 with hx of COPD but has felt more SOA in past couple of days. She reports she had temp. 102 degrees 2 days ago- denies fever today. She reports she has had less urinary output with less fld intake this week. Review of Systems Review of Systems Constitutional: Reports fever 2 days ago with increased generalized weakness/ fatigue Eyes: Denies change in visual acuity, redness, or eye pain [] HENT: Denies nasal congestion or sore throat [] Respiratory: Denies cough. Reports increased SOA in past 2 days even with 3L O2 on at home Cardiovascular: Denies CP/palpitations GI: Denies abdominal pain, nausea, vomiting, bloody stools. Reports diarrhea in past 2 days : Denies dysuria or hematuria. Reports hx of incontinence- less urine output in past 2 days Musculoskeletal: Reports chronic pain with no acute changes Integument: Denies rash or skin lesions. Reports swelling in bilat. LEs Neurologic: Denies headache, focal weakness or sensory changes [] Endocrine: Denies polyuria or polydipsia [] All other systems were reviewed and found to be within normal limits, except as documented in this note. Allergies Allergies Allergies Coded Allergies Type Severity Reaction Last Updated Verified Cephalexin Monohydrate Allergy Intermediate Hives 05/12/14 Yes codeine Allergy Intermediate 05/12/14 Yes latex Allergy Intermediate 05/12/14 Yes Physical Exam Physical Exam Constitutional: Well developed, well nourished, no acute distress, non-toxic appearance. Appears fatigued on exam HENT: Normocephalic, atraumatic, bilateral ears normal, mucous membranes pink/ dry, no oral exudates, nose normal. [] Eyes: PERRLA, no nystagmus, conjunctiva normal, no discharge. [] Neck: Normal range of motion, no tenderness, supple, no gross adenopathy Cardiovascular:Heart rate regular rhythm, no murmur [] Lungs & Thorax: Bilateral breath sounds clear to auscultation- diminished in bases. Resp. equal/nonlabored Abdomen: Bowel sounds normal, soft/obese- nondistended, no tenderness, no masses , no pulsatile masses. [] Skin: Warm, dry, no erythema, no rash. [] Back: Chronic back pain with repositioning- reports no acute changes, no CVA tenderness. [] Extremities: No tenderness, no cyanosis, no clubbing, ROM intact, 1-2+ bilat. pitting pedal edema Neurologic: Alert and oriented X 3, normal motor function, normal sensory function, no focal deficits noted. [] Psychologic: Affect normal, judgement normal, mood normal. [] Current Patient Data Vital Signs Vital Signs Date Time Temp Pulse Resp B/P (MAP) Pulse Ox O2 Delivery O2 Flow Rate FiO2 01/12/18 19:30 92 20 125/58 (80) 96 3.0 01/12/18 18:26 Nasal Cannula 01/12/18 16:18 98.2 98.2 Lab Values Laboratory Tests Test 01/12/18 17:40 White Blood Count 16.5 x10^3/uL (4.0-11.0) H Red Blood Count 3.33 x10^6/uL (3.50-5.40) L Hemoglobin 9.0 g/dL (12.0-15.5) L Hematocrit 28.1 % (36.0-47.0) L Mean Corpuscular Volume 84 fL (79-100) Mean Corpuscular Hemoglobin 27 pg (25-35) Mean Corpuscular Hemoglobin Concent 32 g/dL (31-37) Red Cell Distribution Width 18.9 % (11.5-14.5) H Platelet Count 234 x10^3/uL (140-400) Neutrophils (%) (Auto) 81 % (31-73) H Lymphocytes (%) (Auto) 10 % (24-48) L Monocytes (%) (Auto) 7 % (0-9) Eosinophils (%) (Auto) 1 % (0-3) Basophils (%) (Auto) 1 % (0-3) Neutrophils # (Auto) 13.3 x10^3uL (1.8-7.7) H Lymphocytes # (Auto) 1.7 x10^3/uL (1.0-4.8) Monocytes # (Auto) 1.2 x10^3/uL (0.0-1.1) H Eosinophils # (Auto) 0.2 x10^3/uL (0.0-0.7) Basophils # (Auto) 0.1 x10^3/uL (0.0-0.2) Segmented Neutrophils % 86 % (35-66) H Lymphocytes % 8 % (24-48) L Monocytes % 6 % (0-10) Platelet Estimate Adequate (ADEQUATE) Polychromasia Slight Sodium Level 136 mmol/L (136-145) Potassium Level 4.8 mmol/L (3.5-5.1) Chloride Level 98 mmol/L (98-107) Carbon Dioxide Level 28 mmol/L (21-32) Anion Gap 10 (6-14) Blood Urea Nitrogen 34 mg/dL (7-20) H Creatinine 2.5 mg/dL (0.6-1.0) H Estimated GFR (Cockcroft-Gault) 18.6 BUN/Creatinine Ratio 14 (6-20) Glucose Level 82 mg/dL (70-99) Lactic Acid Level 1.3 mmol/L (0.4-2.0) Calcium Level 8.7 mg/dL (8.5-10.1) Magnesium Level 1.8 mg/dL (1.8-2.4) Total Bilirubin 0.5 mg/dL (0.2-1.0) Aspartate Amino Transferase (AST) 22 U/L (15-37) Alanine Aminotransferase (ALT) 18 U/L (14-59) Alkaline Phosphatase 115 U/L (46-116) Creatine Kinase 51 U/L (26-192) Creatine Kinase MB (Mass) 1.0 ng/mL (0.0-3.6) Creatine Kinase MB Relative Index % (0-4) Troponin I Quantitative 0.023 ng/mL (0.000-0.055) VF-Weu-K-Type Natriuretic Peptide 2516 pg/mL (0-449) H Total Protein 7.0 g/dL (6.4-8.2) Albumin 2.4 g/dL (3.4-5.0) L Albumin/Globulin Ratio 0.5 (1.0-1.7) L Laboratory Tests 01/12/18 17:40 Laboratory Tests 01/12/18 17:40 EKG EKG [] Radiology/Procedures Radiology/Procedures AP chest. HISTORY: COPD, short of breath AP view was taken of the chest. There is marked arthritis in the right shoulder. There is a shoulder prosthesis on the left. The aorta is enlarged and mildly tortuous. The heart is upper normal in size. There is no effusion. There are no confluent infiltrates. There is tortuosity of the great vessels. IMPRESSION: 1. No acute infiltrates. 2. Mildly enlarged tortuous thoracic aorta. Electronically signed by: Je Jacob MD (01/12/2018 8:59 PM) [facility] DICTATED and SIGNED BY: JE JACOB MD DATE: 01/12/182057 Course & Med Decision Making Course & Med Decision Making Pertinent Labs and Imaging studies reviewed. (See chart for details) During initial exam with pt reporting she was having difficulty caring for herself at home along with issues obtaining prescriptions- admission was discussed and pt was agreeable. 1954: Spoke with Dr. Ta peralta for Dr. White and discussed pt's case and plans for admission. Will place case management consult with admit orders as pt is having difficulty caring for self at home. Dragon Disclaimer Dragon Disclaimer This electronic medical record was generated, in whole or in part, using a voice recognition dictation system. Departure Departure Impression: Primary Impression: Generalized weakness Additional Impression: Total self-care deficit Disposition: ADMITTED INPATIENT Admitting Physician: Anibal White Condition: STABLE Referrals: ANIBAL WHITE MD (PCP) Problem Qualifiers REFFITT,EDISON M ACID DUMPER Jan 12, 2018 17:20
[2018-01-12 18:00] LABS: BASO # 0.1 x10^3/uL (0.0-0.2); BASO % 1 % (0-3); EOS # 0.2 x10^3/uL (0.0-0.7); EOS % 1 % (0-3); HEMATOCRIT 28.1 % (36.0-47.0); LYMPH # 1.7 x10^3/uL (1.0-4.8); LYMPH % 10 % (24-48); MEAN CORPUSCULAR HEMOGLOBIN 27 pg (25-35); MEAN CORPUSCULAR HGB CONC 32 g/dL (31-37); MEAN CORPUSCULAR VOLUME 84 fL (79-100); MONO # 1.2 x10^3/uL (0.0-1.1); MONO % 7 % (0-9); NEUT # 13.3 x10^3uL (1.8-7.7); NEUT % 81 % (31-73); PLATELET COUNT 234 x10^3/uL (140-400); RED BLOOD COUNT 3.33 x10^6/uL (3.50-5.40); RED CELL DISTRIBUTION WIDTH 18.9 % (11.5-14.5); WHITE BLOOD COUNT 16.5 x10^3/uL (4.0-11.0)
[2018-01-12 18:17] LABS: CALCIUM 8.7 mg/dL (8.5-10.1); CREATININE 2.5 mg/dL (0.6-1.0); GFR 18.6; POTASSIUM 4.8 mmol/L (3.5-5.1)
[2018-01-12 18:32] LABS: % LYMPHS 8 % (24-48); % MONOS 6 % (0-10); % SEGS 86 % (35-66); ALBUMIN 2.4 g/dL (3.4-5.0); ALBUMIN/GLOBULIN RATIO 0.5 (1.0-1.7); MAGNESIUM 1.8 mg/dL (1.8-2.4); TOTAL BILIRUBIN 0.5 mg/dL (0.2-1.0)
--- NOTE | 2018-01-12 18:39 | EKG ---
[facility] [address] [place] [address] Test Date: 2018-01-12 Test Time: 17:09:35 Pat Name: JUANY STEARNS Department: Room: Gender: F Stranner: : 1940 Requested By: EDISON ANTOINE Order Number: [id number] Reading MD: John Brannon MD Measurements Intervals [place] Rate: 94 P: 180 IL: 176 QRS: -144 QRSD: 92 T: 155 QT: 334 QTc: 422 Interpretive Statements SINUS RHYTHM LIMB LEAD MISPLACEMENT Electronically Signed On 01-13-2018 7:02:37 CDT by John Brannon MD
[2018-01-12 18:47] LABS: PLT ESTIMATE ADEQUATE (ADEQUATE)
[2018-01-12 18:50] LABS: POLYCHROMASIA SLIGHT
[2018-01-12 20:24] LABS: BILIRUBIN,URINE NEGATIVE (NEG); CLARITY,URINE CLEAR; COLOR,URINE YELLOW; NITRITE,URINE NEGATIVE (NEG); PROTEIN,URINE 100 mg/dL (NEG-TRACE); UROBILINOGEN,URINE 0.2 mg/dL (0.2 mg/dL)
[2018-01-12 20:25] LABS: CREATINE KINASE 51 U/L (26-192)
[2018-01-12 20:34] LABS: BACTERIA,URINE FEW /HPF (0-FEW); RBC,URINE >40 /HPF (0-2); SQUAMOUS EPITHELIAL CELL,UR OCC /LPF
[2018-01-12 20:58] VITALS: BP 137/68
--- NOTE | 2018-01-12 21:03 | RAD ---
AP chest. HISTORY: COPD, short of breath AP view was taken of the chest. There is marked arthritis in the right shoulder. There is a shoulder prosthesis on the left. The aorta is enlarged and mildly tortuous. The heart is upper normal in size. There is no effusion. There are no confluent infiltrates. There is tortuosity of the great vessels. IMPRESSION: 1. No acute infiltrates. 2. Mildly enlarged tortuous thoracic aorta. Electronically signed by: Je Jacob MD (01/12/2018 8:59 PM) [facility]
[2018-01-12] MEDS ORDERED: POLY17PO29 PO (22:22)
[2018-01-12] MEDS ORDERED: DOCU100C28 PO (22:22)
[2018-01-12] MEDS ORDERED: AMLO5TAB7 PO (22:22)
[2018-01-12] MEDS ORDERED: HYDR-2762 PO (22:22)
[2018-01-12 23:24] VITALS: BP 108/84
[2018-01-13 03:14] VITALS: BP 113/54
[2018-01-13 07:10] VITALS: BP 133/61
[2018-01-13 08:09] LABS: BASO % 0 % (0-3); EOS # 0.1 x10^3/uL (0.0-0.7); EOS % 1 % (0-3); HEMATOCRIT 24.6 % (36.0-47.0); LYMPH # 1.1 x10^3/uL (1.0-4.8); LYMPH % 9 % (24-48); MEAN CORPUSCULAR HEMOGLOBIN 28 pg (25-35); MEAN CORPUSCULAR HGB CONC 33 g/dL (31-37); MEAN CORPUSCULAR VOLUME 85 fL (79-100); MONO # 0.9 x10^3/uL (0.0-1.1); MONO % 8 % (0-9); NEUT # 9.2 x10^3uL (1.8-7.7); NEUT % 81 % (31-73); PLATELET COUNT 209 x10^3/uL (140-400); RED CELL DISTRIBUTION WIDTH 18.1 % (11.5-14.5); WHITE BLOOD COUNT 11.4 x10^3/uL (4.0-11.0)
[2018-01-13 08:40] LABS: CREATININE 2.6 mg/dL (0.6-1.0); GFR 17.8; POTASSIUM 4.3 mmol/L (3.5-5.1)
[2018-01-13] MEDS ORDERED: ACETAMINOPHEN 325 MG TABLET. PO PRN (10:00)
[2018-01-13] MEDS: LEVOTHYROXINE 75 MCG TABLET PO SCH (10:30)
[2018-01-13 11:13] VITALS: BP 116/60
[2018-01-13] MEDS: FLECAINIDE ACETATE 50 MG TABLET. PO SCH ×2 (11:29→20:38)
[2018-01-13] MEDS: HYDROXYCHLOROQUINE 200 MG TABLET PO SCH ×2 (11:30→20:39)
[2018-01-13] MEDS: HYDROcodone/APAP 7.5/325MG 1 TAB TABLET PO PRN (11:30)
[2018-01-13] MEDS: LACTOBACILLUS RHAMNOSUS GG 1 CAPSULE. PO SCH (11:30)
[2018-01-13] MEDS: DOCUSATE SODIUM 100 MG CAPSULE. PO SCH ×2 (11:31→20:38)
[2018-01-13] MEDS: METOPROLOL SUCC 24HR ER 100 MG TAB.ER.24H. PO SCH (11:31)
[2018-01-13] MEDS: ASPIRIN CHEWABLE 81 MG TABLET. PO SCH (11:32)
[2018-01-13] MEDS: FUROSEMIDE 40 MG TABLET. PO SCH ×2 (11:32→13:46)
[2018-01-13] MEDS: predniSONE 10 MG TABLET PO SCH (11:32)
[2018-01-13] MEDS: FOLIC ACID 1 MG TABLET. PO SCH (11:32)
[2018-01-13] MEDS: PANTOPRAZOLE 40 MG TABLET.DR. PO SCH (11:32)
[2018-01-13] MEDS: POTASSIUM CHLORIDE 10 MEQ TABLET.ER. PO SCH (11:33)
[2018-01-13] MEDS: amLODIPine BESYLATE 5 MG TABLET PO SCH (11:33)
--- NOTE | 2018-01-13 12:03 | PDOC ---
Provider Note Provider Note Patient seen. History and Physical dictated. See dictation# [id number] MARION CASTILLO MD Jan 13, 2018 12:03
--- NOTE | 2018-01-13 12:39 | HP ---
ADMIT DATE: 01/12/2018 ADMITTING PHYSICIAN: Dr. Chaudhry. HISTORY OF PRESENT ILLNESS: This is a 77-year-old female who lives alone at home and has become weaker for the last few days. Her granddaughter was sick and then she started having some congestion. Now, her congestion is improving, but she remains very weak. Mucus is clear. She denies any fever or chills, but she thought that she was coming down with the flu. She also was getting help from her granddaughter, who was her caregiver, but she found another job, so she has nobody at home to help her. She lives in an assisted living facility. Her pharmacy [facility] is also closed; so for last several days, she has not had any medications because nobody could deliver medications to her. Because of her weakness and inability to care for herself, she came to the Emergency Room. In the Emergency Room, she was evaluated. Her white count was 16.5. The patient denies any dysuria, but about 2-1/2 weeks ago, she had a cystoscopy for hematuria and as per patient. Cystoscopy was negative. She recently had admission at the end of November for gastroenteritis and hematuria. As noted earlier, cystoscopy was negative. Because of the leukocytosis, weakness and inability to care for herself, she could not even get up in the ER, it was decided to go ahead and admit the patient for further evaluation and management. REVIEW OF SYSTEMS: The patient admits to some joint pains, back pain and weakness. She has some cough and congestion, but no significant expectoration. No fever or chills. From talking to her, her weakness and her physical condition has not really changed much, but over a period of years, has been gradually declining. She denies any nausea or vomiting, but has had diarrhea since yesterday. She has been on prednisone at home for COPD. The patient denies any chest pains, palpitations, dyspnea or dizziness. Other systems reviewed and are negative. PAST MEDICAL HISTORY: As noted earlier, she was recently admitted on 12/03/2017. She has a motorized wheelchair at home. She has a history of falls, osteoarthritis. Apparently, she is on prednisone actually for her arthritis. She has COPD, coronary artery disease, hypertension, urinary tract infections, atrial fibrillation, and rheumatoid arthritis, recent. She had recent hematuria with negative cystoscopy per patient. PAST SURGICAL HISTORY: The patient had appendectomy, hysterectomy, tonsillectomy, rotator cuff surgery and cardiac catheterization and colonoscopy. ALLERGIES: THE PATIENT IS ALLERGIC TO KEFLEX, CODEINE AND LATEX. MEDICATIONS: I have reviewed the medications. The patient is on prednisone 10 mg daily. PERSONAL HISTORY: No history of smoking, alcoholism or drug abuse. The patient lives by herself and has no caregivers at this time and she uses motorized wheelchair. PHYSICAL EXAMINATION: VITAL SIGNS: Temperature 98.8, pulse 93 per minute, respirations 16 per minute, blood pressure 133/61 mmHg. GENERAL: The patient is alert, oriented x 3 and not in acute distress. EYES: Pupils equal, reacting to light. Conjunctivae are pale. Sclerae are muddy. HEENT: Unremarkable except for minimal congestion. NECK: Supple. JVP normal. No thyromegaly. Trachea is midline. LUNGS: Clear with decreased breath sounds at bases. CARDIOVASCULAR: S1, S2 regular. ABDOMEN: Soft, nontender, no guarding, no rigidity. Bowel sounds present. EXTREMITIES: No edema. CENTRAL NERVOUS SYSTEM: Generalized weakness. No acute changes noted. LABORATORY FINDINGS: WBC count was 16.5 yesterday and today it is 11.4, hemoglobin 9 yesterday, 8 today. Platelet count was 234,000 yesterday. Sodium 136, potassium 4.8, BUN 34, creatinine 2.5. Today, creatinine is 2.6, this is her baseline. BNP is 2516. Troponin level is normal. Albumin 2.4. Urinalysis shows large blood, small leukocyte esterase, greater than rbc's, wbc's 1-4, few bacteria. Blood culture was just reported by the lab to be initially positive with gram variable rods. Chest x-ray shows no acute infiltrates, mildly enlarged tortuous thoracic aorta. IMPRESSION: 1. Acute bronchitis, viral, improving. 2. Diarrhea, etiology not clear. 3. Recurrent urinary tract infections. The patient has also history of hematuria and had cystoscopy 2-1/2 weeks ago. 4. Leukocytosis, improving, etiology not clear. The patient is also on prednisone. 5. Gram variable rods bacteremia, etiology not clear. 6. Weakness. 7. Chronic obstructive pulmonary disease. 8. Hypertension. 9. Coronary artery disease. 10. History of rheumatoid arthritis. 11. History of recurrent falls. 12. Osteoarthritis. 13. Lack of social support. PLAN: I will consult Dr. Gr to see if she needs any antibiotics. Clinically, she seems to be stable other than being weak and not having anyone to help her at home. We will follow up on the blood cultures to see if we need to put her on any antibiotics because of her history of recurrent UTI, abnormal UA as well as a leukocytosis and abnormal blood culture. Consultation has been obtained with Dr. Jenkins for rehab evaluation and management and Dr. Gr for Infectious Disease evaluation and management. I will recheck labs tomorrow. Clinically, the patient appears to be stable at this time. For details, please refer to the orders. MARION CASTILLO MD DR: SKYE/nts JOB#: [id number] / [id number]
[2018-01-13] MEDS ORDERED: cefTRIAXone IV Push 1 GM VIAL. IVP SCH (13:00)
[2018-01-13] MEDS: GABAPENTIN 100 MG CAPSULE. PO SCH ×2 (13:46→20:38)
--- NOTE | 2018-01-13 15:16 | CONS ---
DATE OF CONSULTATION: 01/13/2018 ATTENDING PHYSICIAN: Dr. Chaudhry. The patient was seen at the request of Dr. Chaudhry for rehab evaluation. HISTORY OF PRESENT ILLNESS: This is a 77-year-old female known to me, admitted through the Emergency Room where she lives alone. The patient is having difficulty getting her medication delivered from [facility] since it was closed. The patient with known osteoarthritis, status post left rotator cuff repair. She had right rotator cuff arthropathy with significant pain on any movement; coronary artery disease; chronic obstructive pulmonary disease, uses oxygen by nasal cannula on a regular basis, 3 liters per minute; diabetes mellitus with peripheral neuropathy; gastroesophageal reflux disease; hyperlipidemia; hypertension; hypothyroidism; previous myocardial infarction; urinary tract infection; esophagitis; hemorrhoids; hiatal hernia; gastroparesis; rheumatoid arthritis; status post appendectomy; hysterectomy; tonsillectomy; left rotator cuff repair. ALLERGIES: Known allergic to CEPHALEXIN, CODEINE and LATEX. SOCIAL HISTORY: She lives alone. REVIEW OF SYSTEMS: She has not walked in several years. She usually gets around in a wheelchair. She is having some difficulty to try to get out of the bed with regular kind of mattress. The patient admits pain in her knees. She is not interested in any injections. The patient also admits urinary and stool incontinence. She is having diarrhea for about a week. PHYSICAL EXAMINATION: GENERAL: Examination today revealed an elderly female. She is alert, oriented to time, place, person and circumstance and follows commands appropriately. MUSCULOSKELETAL: Moves all 4 extremities voluntarily where she had generalized muscle weakness, more so around right shoulder, around both knees. She had deformity of both feet, toes and also both thumbs secondary to degenerative changes with muscle atrophy involving right shoulder girdle muscles and thenar eminence muscles in both hands. The patient had crepitus on range of motion of right shoulder and both knees with obvious knee joint effusion. The patient had absent knee and ankle jerks. She had decreased sensory perception in her thighs when compared to both feet. She requires some help with bed mobility. I have not tested her transfers or ambulation skills at this time. She had tenderness to palpation over lumbar spine area and both shoulders and knees. Her skin is intact at this time. ASSESSMENT: Mobility and self-care limitation in a patient with painful degenerative joint disease of both knees and right rotator cuff arthropathy, status post left rotator cuff repair in the past, chronic lower back pain from degenerative disk disease and degenerative joint disease without any clinical evidence of ongoing lumbar radiculopathy. Diabetes mellitus with peripheral neuropathy. The patient with known coronary artery disease, chronic obstructive pulmonary disease, gastroesophageal reflux disease, hypercholesterolemia, hypertension, hypothyroidism, previous myocardial infarction, frequent urinary tract infections, esophagitis, hemorrhoids, hiatal hernia, gastroparesis, rheumatoid arthritis. RECOMMENDATION: To ask Physical Therapy to concentrate on safety with transfers. To ask social work nurse to try to see whether she can get a hospital bed for use at home, easy for her to get in and into the bed. She would like to have an indwelling Dowd catheter placed until she goes home. Dr. Chaudhry and Dr. Ladonna Roberto, I appreciate asking me to participate in the care of this interesting patient. I will be glad to follow her with you as needed for rehabilitation. REGI VALDEZ MD DR: GARRY/duncan JOB#: [id number] / [id number]
[2018-01-13 15:36] VITALS: BP 164/49
[2018-01-13 19:51] VITALS: BP 114/54
[2018-01-13] MEDS: ATORVASTATIN CALCIUM 20 MG TABLET PO SCH (20:38)
[2018-01-13] MEDS: COLESTIPOL HCL 1 GM TABLET PO SCH (20:39)
[2018-01-13 23:29] VITALS: BP 136/67
[2018-01-14 03:25] VITALS: BP 111/56
[2018-01-14 05:28] LABS: BASO % 0 % (0-3); EOS % 0 % (0-3); HEMATOCRIT 24.2 % (36.0-47.0); LYMPH # 0.9 x10^3/uL (1.0-4.8); LYMPH % 8 % (24-48); MEAN CORPUSCULAR HEMOGLOBIN 28 pg (25-35); MEAN CORPUSCULAR HGB CONC 33 g/dL (31-37); MEAN CORPUSCULAR VOLUME 84 fL (79-100); MONO # 0.7 x10^3/uL (0.0-1.1); MONO % 6 % (0-9); NEUT # 9.9 x10^3uL (1.8-7.7); NEUT % 86 % (31-73); PLATELET COUNT 242 x10^3/uL (140-400); RED BLOOD COUNT 2.86 x10^6/uL (3.50-5.40); RED CELL DISTRIBUTION WIDTH 18.1 % (11.5-14.5); WHITE BLOOD COUNT 11.6 x10^3/uL (4.0-11.0)
[2018-01-14 05:39] LABS: ALBUMIN 2.1 g/dL (3.4-5.0); ALBUMIN/GLOBULIN RATIO 0.5 (1.0-1.7); CALCIUM 8.2 mg/dL (8.5-10.1); CREATININE 2.6 mg/dL (0.6-1.0); GFR 17.8; MAGNESIUM 1.7 mg/dL (1.8-2.4); POTASSIUM 4.6 mmol/L (3.5-5.1); TOTAL BILIRUBIN 0.3 mg/dL (0.2-1.0)
[2018-01-14] MEDS: LEVOTHYROXINE 75 MCG TABLET PO SCH ×2 (06:15→14:05)
[2018-01-14 07:00] VITALS: BP 145/66
[2018-01-14] MEDS: HYDROXYCHLOROQUINE 200 MG TABLET PO SCH ×2 (08:56→19:52)
[2018-01-14] MEDS: LACTOBACILLUS RHAMNOSUS GG 1 CAPSULE. PO SCH (08:56)
[2018-01-14] MEDS: FLECAINIDE ACETATE 50 MG TABLET. PO SCH ×2 (08:56→19:52)
[2018-01-14] MEDS: predniSONE 10 MG TABLET PO SCH (08:57)
[2018-01-14] MEDS: DOCUSATE SODIUM 100 MG CAPSULE. PO SCH ×2 (08:57→19:52)
[2018-01-14] MEDS: FOLIC ACID 1 MG TABLET. PO SCH (08:57)
[2018-01-14] MEDS: PANTOPRAZOLE 40 MG TABLET.DR. PO SCH (08:57)
[2018-01-14] MEDS: FUROSEMIDE 40 MG TABLET. PO SCH ×2 (08:57→14:00)
[2018-01-14] MEDS: COLESTIPOL HCL 1 GM TABLET PO SCH ×2 (08:57→19:52)
[2018-01-14] MEDS: GABAPENTIN 100 MG CAPSULE. PO SCH ×3 (08:57→19:52)
[2018-01-14] MEDS: ASPIRIN CHEWABLE 81 MG TABLET. PO SCH (08:57)
[2018-01-14] MEDS: POTASSIUM CHLORIDE 10 MEQ TABLET.ER. PO SCH (08:58)
[2018-01-14] MEDS: amLODIPine BESYLATE 5 MG TABLET PO SCH (08:58)
[2018-01-14] MEDS: METOPROLOL SUCC 24HR ER 100 MG TAB.ER.24H. PO SCH (08:59)
--- NOTE | 2018-01-14 10:36 | PDOC ---
IM PROGRESS NOTES- Subjective Subjective Weakness is improving. Denies any fever, dysuria or cough. Diarrhea is better. She is constipated. Objective Vitals Vital Signs Date Time Temp Pulse Resp B/P (MAP) Pulse Ox O2 Delivery O2 Flow Rate FiO2 01/14/18 08:59 58 145/66 01/14/18 07:00 97.8 16 94 Nasal Cannula 3.0 97.8 Input & Output Intake and Output 01/14/18 07:00 Intake Total 1160 ml Output Total 1450 ml Balance -290 ml Intake Oral 1160 ml Output Urine Total 1450 ml Physical Exam Physical Exam General appearance - alert,well appearing, and in no distress and oriented to person, place, and time Mental Status - alert, oriented to person, place, and time, affect appropriate to mood Head - normal Chest - clear to auscultation, no wheezes, rales or rhonchi, symmetric air entry Heart - S1 and S2 normal Abdomen - soft, nontender, nondistended, no masses or organomegaly Neurological - alert and oriented Musculoskeletal - no muscular tenderness noted Extremities - no pedal edema Skin - warm and dry Labs Laboratory Tests Test 01/12/18 17:40 01/12/18 20:15 01/13/18 07:12 01/13/18 07:40 White Blood Count 16.5 x10^3/uL (4.0-11.0) 11.4 x10^3/uL (4.0-11.0) Red Blood Count 3.33 x10^6/uL (3.50-5.40) 2.90 x10^6/uL (3.50-5.40) Hemoglobin 9.0 g/dL (12.0-15.5) 8.0 g/dL (12.0-15.5) Hematocrit 28.1 % (36.0-47.0) 24.6 % (36.0-47.0) Mean Corpuscular Volume 84 fL (79-100) 85 fL (79-100) Mean Corpuscular Hemoglobin 27 pg (25-35) 28 pg (25-35) Mean Corpuscular Hemoglobin Concent 32 g/dL (31-37) 33 g/dL (31-37) Red Cell Distribution Width 18.9 % (11.5-14.5) 18.1 % (11.5-14.5) Platelet Count 234 x10^3/uL (140-400) 209 x10^3/uL (140-400) Neutrophils (%) (Auto) 81 % (31-73) 81 % (31-73) Lymphocytes (%) (Auto) 10 % (24-48) 9 % (24-48) Monocytes (%) (Auto) 7 % (0-9) 8 % (0-9) Eosinophils (%) (Auto) 1 % (0-3) 1 % (0-3) Basophils (%) (Auto) 1 % (0-3) 0 % (0-3) Neutrophils # (Auto) 13.3 x10^3uL (1.8-7.7) 9.2 x10^3uL (1.8-7.7) Lymphocytes # (Auto) 1.7 x10^3/uL (1.0-4.8) 1.1 x10^3/uL (1.0-4.8) Monocytes # (Auto) 1.2 x10^3/uL (0.0-1.1) 0.9 x10^3/uL (0.0-1.1) Eosinophils # (Auto) 0.2 x10^3/uL (0.0-0.7) 0.1 x10^3/uL (0.0-0.7) Basophils # (Auto) 0.1 x10^3/uL (0.0-0.2) 0.0 x10^3/uL (0.0-0.2) Segmented Neutrophils % 86 % (35-66) Lymphocytes % 8 % (24-48) Monocytes % 6 % (0-10) Platelet Estimate Adequate (ADEQUATE) Polychromasia Slight Sodium Level 136 mmol/L (136-145) 140 mmol/L (136-145) Potassium Level 4.8 mmol/L (3.5-5.1) 4.3 mmol/L (3.5-5.1) Chloride Level 98 mmol/L (98-107) 102 mmol/L (98-107) Carbon Dioxide Level 28 mmol/L (21-32) 30 mmol/L (21-32) Anion Gap 10 (6-14) 8 (6-14) Blood Urea Nitrogen 34 mg/dL (7-20) 32 mg/dL (7-20) Creatinine 2.5 mg/dL (0.6-1.0) 2.6 mg/dL (0.6-1.0) Estimated GFR (Cockcroft-Gault) 18.6 17.8 BUN/Creatinine Ratio 14 (6-20) Glucose Level 82 mg/dL (70-99) 73 mg/dL (70-99) Lactic Acid Level 1.3 mmol/L (0.4-2.0) Calcium Level 8.7 mg/dL (8.5-10.1) 8.0 mg/dL (8.5-10.1) Magnesium Level 1.8 mg/dL (1.8-2.4) Total Bilirubin 0.5 mg/dL (0.2-1.0) Aspartate Amino Transf (AST/SGOT) 22 U/L (15-37) Alanine Aminotransferase (ALT/SGPT) 18 U/L (14-59) Alkaline Phosphatase 115 U/L (46-116) Creatine Kinase 51 U/L (26-192) Creatine Kinase MB (Mass) 1.0 ng/mL (0.0-3.6) Creatine Kinase MB Relative Index % (0-4) Troponin I Quantitative 0.023 ng/mL (0.000-0.055) JL-Tpf-J-Type Natriuretic Peptide 2516 pg/mL (0-449) Total Protein 7.0 g/dL (6.4-8.2) Albumin 2.4 g/dL (3.4-5.0) Albumin/Globulin Ratio 0.5 (1.0-1.7) Urine Collection Type U cath Urine Color Yellow Urine Clarity Clear Urine pH 8.0 Urine Specific [place] 1.010 Urine Protein 100 mg/dL (NEG-TRACE) Urine Glucose (UA) Negative mg/dL (NEG) Urine Ketones (Stick) Negative mg/dL (NEG) Urine Blood Large (NEG) Urine Nitrite Negative (NEG) Urine Bilirubin Negative (NEG) Urine Urobilinogen Dipstick 0.2 mg/dL (0.2 mg/dL) Urine Leukocyte Esterase Small (NEG) Urine RBC >40 /HPF (0-2) Urine WBC 1-4 /HPF (0-4) Urine Squamous Epithelial Cells Occ /LPF Urine Transitional Epithelial Cells Occ /LPF Urine Bacteria Few /HPF (0-FEW) Glucose (Fingerstick) 73 mg/dL (70-99) Test 01/13/18 11:32 01/13/18 16:12 01/14/18 05:00 01/14/18 07:18 Glucose (Fingerstick) 99 mg/dL (70-99) 135 mg/dL (70-99) 81 mg/dL (70-99) White Blood Count 11.6 x10^3/uL (4.0-11.0) Red Blood Count 2.86 x10^6/uL (3.50-5.40) Hemoglobin 8.0 g/dL (12.0-15.5) Hematocrit 24.2 % (36.0-47.0) Mean Corpuscular Volume 84 fL (79-100) Mean Corpuscular Hemoglobin 28 pg (25-35) Mean Corpuscular Hemoglobin Concent 33 g/dL (31-37) Red Cell Distribution Width 18.1 % (11.5-14.5) Platelet Count 242 x10^3/uL (140-400) Neutrophils (%) (Auto) 86 % (31-73) Lymphocytes (%) (Auto) 8 % (24-48) Monocytes (%) (Auto) 6 % (0-9) Eosinophils (%) (Auto) 0 % (0-3) Basophils (%) (Auto) 0 % (0-3) Neutrophils # (Auto) 9.9 x10^3uL (1.8-7.7) Lymphocytes # (Auto) 0.9 x10^3/uL (1.0-4.8) Monocytes # (Auto) 0.7 x10^3/uL (0.0-1.1) Eosinophils # (Auto) 0.0 x10^3/uL (0.0-0.7) Basophils # (Auto) 0.0 x10^3/uL (0.0-0.2) Sodium Level 136 mmol/L (136-145) Potassium Level 4.6 mmol/L (3.5-5.1) Chloride Level 101 mmol/L (98-107) Carbon Dioxide Level 28 mmol/L (21-32) Anion Gap 7 (6-14) Blood Urea Nitrogen 30 mg/dL (7-20) Creatinine 2.6 mg/dL (0.6-1.0) Estimated GFR (Cockcroft-Gault) 17.8 BUN/Creatinine Ratio 12 (6-20) Glucose Level 95 mg/dL (70-99) Calcium Level 8.2 mg/dL (8.5-10.1) Magnesium Level 1.7 mg/dL (1.8-2.4) Total Bilirubin 0.3 mg/dL (0.2-1.0) Aspartate Amino Transf (AST/SGOT) 19 U/L (15-37) Alanine Aminotransferase (ALT/SGPT) 15 U/L (14-59) Alkaline Phosphatase 92 U/L (46-116) Creatine Kinase 48 U/L (26-192) Total Protein 6.0 g/dL (6.4-8.2) Albumin 2.1 g/dL (3.4-5.0) Albumin/Globulin Ratio 0.5 (1.0-1.7) Laboratory Tests Test 01/13/18 11:32 01/13/18 16:12 01/14/18 05:00 01/14/18 07:18 Glucose (Fingerstick) 99 mg/dL (70-99) 135 mg/dL (70-99) 81 mg/dL (70-99) White Blood Count 11.6 x10^3/uL (4.0-11.0) Red Blood Count 2.86 x10^6/uL (3.50-5.40) Hemoglobin 8.0 g/dL (12.0-15.5) Hematocrit 24.2 % (36.0-47.0) Mean Corpuscular Volume 84 fL (79-100) Mean Corpuscular Hemoglobin 28 pg (25-35) Mean Corpuscular Hemoglobin Concent 33 g/dL (31-37) Red Cell Distribution Width 18.1 % (11.5-14.5) Platelet Count 242 x10^3/uL (140-400) Neutrophils (%) (Auto) 86 % (31-73) Lymphocytes (%) (Auto) 8 % (24-48) Monocytes (%) (Auto) 6 % (0-9) Eosinophils (%) (Auto) 0 % (0-3) Basophils (%) (Auto) 0 % (0-3) Neutrophils # (Auto) 9.9 x10^3uL (1.8-7.7) Lymphocytes # (Auto) 0.9 x10^3/uL (1.0-4.8) Monocytes # (Auto) 0.7 x10^3/uL (0.0-1.1) Eosinophils # (Auto) 0.0 x10^3/uL (0.0-0.7) Basophils # (Auto) 0.0 x10^3/uL (0.0-0.2) Sodium Level 136 mmol/L (136-145) Potassium Level 4.6 mmol/L (3.5-5.1) Chloride Level 101 mmol/L (98-107) Carbon Dioxide Level 28 mmol/L (21-32) Anion Gap 7 (6-14) Blood Urea Nitrogen 30 mg/dL (7-20) Creatinine 2.6 mg/dL (0.6-1.0) Estimated GFR (Cockcroft-Gault) 17.8 BUN/Creatinine Ratio 12 (6-20) Glucose Level 95 mg/dL (70-99) Calcium Level 8.2 mg/dL (8.5-10.1) Magnesium Level 1.7 mg/dL (1.8-2.4) Total Bilirubin 0.3 mg/dL (0.2-1.0) Aspartate Amino Transf (AST/SGOT) 19 U/L (15-37) Alanine Aminotransferase (ALT/SGPT) 15 U/L (14-59) Alkaline Phosphatase 92 U/L (46-116) Creatine Kinase 48 U/L (26-192) Total Protein 6.0 g/dL (6.4-8.2) Albumin 2.1 g/dL (3.4-5.0) Albumin/Globulin Ratio 0.5 (1.0-1.7) Meds Current Medications Atorvastatin Calcium (Lipitor) 20 mg HS PO Last administered on 01/13/18at 20:38 ; Start 01/13/18 at 21:00 Ceftriaxone Sodium 1 gm/ Dextrose 50 ml @ 100 mls/hr Q24H IV ; Start 01/13/18 at 12:00; Status UNV Ceftriaxone Sodium (Rocephin) 1 gm Q24H IVP Last administered on 01/13/18at 13:44 ; Start 01/13/18 at 13:00 Colestipol HCl (Colestid) 1 gm BID PO Last administered on 01/14/18at 08:57; Start 01/13/18 at 21:00 Gabapentin (Neurontin) 100 mg TID PO Last administered on 01/14/18at 08:57; Start 01/13/18 at 14:00 Assessment Assessment 1. Acute bronchitis, viral, improving. 2. Diarrhea, etiology not clear. 3. Recurrent urinary tract infections. The patient has also history of hematuria and had cystoscopy 2-1/2 weeks ago. 4. Leukocytosis, improving, etiology not clear. The patient is also on prednisone. 5. Gram variable rods bacteremia, etiology not clear. 6. Weakness. 7. Chronic obstructive pulmonary disease. 8. Hypertension. 9. Coronary artery disease. 10. History of rheumatoid arthritis. 11. History of recurrent falls. 12. Osteoarthritis. 13. Lack of social support. PLAN: I will consult Dr. Hollis to see if she needs any antibiotics. Clinically, she seems to be stable other than being weak and not having anyone to help her at home. We will follow up on the blood cultures to see if we need to put her on any antibiotics because of her history of recurrent UTI, abnormal UA as well as a leukocytosis and abnormal blood culture. Consultation has been obtained with Dr. Jenkins for rehab evaluation and management and Dr. Hollis for Infectious Disease evaluation and management. I will recheck labs tomorrow. Clinically, the patient appears to be stable at this time. For details, please refer to the orders. Clinically improving. Await blood cultures report on sensitivity and identification of gram variable rods. Continue IV Rocephin. Await infectious disease consultation and evaluation and management. Plan Plan For more details regarding further plans, please refer to the orders. MARION CASTILLO MD Jan 14, 2018 10:36
[2018-01-14 11:00] VITALS: BP 147/63
[2018-01-14] MEDS ORDERED: PIP/TAZO PER PHARMACY MC PRN (12:45)
--- NOTE | 2018-01-14 12:45 | PDOC ---
Infectious Disease Note Vital Sign Vital Signs Vital Signs Date Time Temp Pulse Resp B/P (MAP) Pulse Ox O2 Delivery O2 Flow Rate FiO2 01/14/18 11:00 97.5 64 16 147/63 (91) 94 Nasal Cannula 3.0 97.5 Labs Lab Laboratory Tests Test 01/13/18 16:12 01/14/18 05:00 01/14/18 07:18 01/14/18 10:46 Glucose (Fingerstick) 135 mg/dL (70-99) 81 mg/dL (70-99) 114 mg/dL (70-99) White Blood Count 11.6 x10^3/uL (4.0-11.0) Red Blood Count 2.86 x10^6/uL (3.50-5.40) Hemoglobin 8.0 g/dL (12.0-15.5) Hematocrit 24.2 % (36.0-47.0) Mean Corpuscular Volume 84 fL (79-100) Mean Corpuscular Hemoglobin 28 pg (25-35) Mean Corpuscular Hemoglobin Concent 33 g/dL (31-37) Red Cell Distribution Width 18.1 % (11.5-14.5) Platelet Count 242 x10^3/uL (140-400) Neutrophils (%) (Auto) 86 % (31-73) Lymphocytes (%) (Auto) 8 % (24-48) Monocytes (%) (Auto) 6 % (0-9) Eosinophils (%) (Auto) 0 % (0-3) Basophils (%) (Auto) 0 % (0-3) Neutrophils # (Auto) 9.9 x10^3uL (1.8-7.7) Lymphocytes # (Auto) 0.9 x10^3/uL (1.0-4.8) Monocytes # (Auto) 0.7 x10^3/uL (0.0-1.1) Eosinophils # (Auto) 0.0 x10^3/uL (0.0-0.7) Basophils # (Auto) 0.0 x10^3/uL (0.0-0.2) Sodium Level 136 mmol/L (136-145) Potassium Level 4.6 mmol/L (3.5-5.1) Chloride Level 101 mmol/L (98-107) Carbon Dioxide Level 28 mmol/L (21-32) Anion Gap 7 (6-14) Blood Urea Nitrogen 30 mg/dL (7-20) Creatinine 2.6 mg/dL (0.6-1.0) Estimated GFR (Cockcroft-Gault) 17.8 BUN/Creatinine Ratio 12 (6-20) Glucose Level 95 mg/dL (70-99) Calcium Level 8.2 mg/dL (8.5-10.1) Magnesium Level 1.7 mg/dL (1.8-2.4) Total Bilirubin 0.3 mg/dL (0.2-1.0) Aspartate Amino Transf (AST/SGOT) 19 U/L (15-37) Alanine Aminotransferase (ALT/SGPT) 15 U/L (14-59) Alkaline Phosphatase 92 U/L (46-116) Creatine Kinase 48 U/L (26-192) Total Protein 6.0 g/dL (6.4-8.2) Albumin 2.1 g/dL (3.4-5.0) Albumin/Globulin Ratio 0.5 (1.0-1.7) Micro 01/12. GRAM VARIABLE RODS SEEN IN 1 OF 3 BOTTLES; 2 SETS WERE DRAWN; RESULTS WERE CALLED TO VAISHNAVI DUENAS ON 6S AT 1054 01/13/18 BY [email or web address]. THE BLOOD CULTURES HAVE BEEN SENT TO [facility] FOR FURTHER WORKUP. AMMENDED REPORT: GRAM VARIABLE RODS SEEN IN 2 OF 3 BOTTLES; 2 SETS WERE DRAWN; RESULTS WERE CALLED TO VAISHNAVI DUENAS ON 6S BY CHRISTINE AT 0657 01/14/18 Objective Assessment Sepsis with gram variable rods bacteremia (2 of 3 bottles) from 01/12. AECOPD, O2 dependent on 3L Leukocytosis - improved, on steroids Cephalexin allergy - hives. Tolerating Rocephin w/o problems. Has had Amoxicillin Urinary incontinence s/p Dowd placement 01/13 LAURYN on CKD Diarrhea on admission, resolved. Plan Plan of Care Change Rocephin to Zosyn, renal dosing - hopefully a contamination f/u cultures Monitor lab values Consider renal evaluation Supportive care D/w RN Thank you Attending Co-Sign Attending Co-Sign The patient was seen and interviewed as well as examined at the bedside. The chart was reviewed. The case was discussed. Agree with the plan of care. SHIRLEY BELCHER APRN Jan 14, 2018 12:45 FLOR BALL MD Jan 14, 2018 13:55
[2018-01-14] MEDS: PIPERACILLIN/TAZOBACTAM 2.25 GM in IV NORMAL SALINE 50ML 50 ML IV SCH ×2 (13:56→19:53)
[2018-01-14 15:00] VITALS: BP 118/62
[2018-01-14 19:33] VITALS: BP 108/52
[2018-01-14] MEDS: ATORVASTATIN CALCIUM 20 MG TABLET PO SCH (19:52)
[2018-01-14] MEDS: HYDROcodone/APAP 7.5/325MG 1 TAB TABLET PO PRN (19:53)
[2018-01-14 23:16] VITALS: BP 116/57
--- NOTE | 2018-01-15 00:28 | CONS ---
DATE OF CONSULTATION: 01/14/2018 DICTATED BY: This is Angel Stapleton, nurse practitioner, dictating for Dr. Flor Ball, Infectious Disease. REASON FOR CONSULTATION: Positive blood cultures. HISTORY OF PRESENT ILLNESS: This patient is a 77-year-old female with a past medical history of chronic obstructive pulmonary disease, oxygen dependent, who was brought to the ER via ambulance from home with complaints of increased shortness of air, cough, congestion, generalized weakness, fevers and chills for the past few days. On arrival, she had elevated white blood cell count of 16,500. Chest x-ray showed no acute infiltrates. She was dosed with ceftriaxone. Blood cultures have since returned with gram-variable rods in 2 of 3 bottles. Hence, ID consult. The patient says she is feeling much better since admission. She had missed several of her medications at home due to pharmacy not delivering them on time. She was hospitalized over a month ago for hematuria and gastroenteritis. She had a cystoscopy a couple of weeks ago and reportedly, it was normal. She has chronic incontinence, for which a Dowd catheter was placed yesterday. She says she is breathing much more comfortable and less congested. She had some diarrhea on admission that has since settled down. Denies nausea, vomiting or cramps. Denies rash. PAST MEDICAL HISTORY: History of E. coli and Citrobacter in the urine; chronic obstructive pulmonary disease, oxygen dependent; rheumatoid arthritis; diabetes mellitus; hypertension; diverticulitis; fibromyalgia; hyperlipidemia; gastroparesis; hypothyroidism; degenerative disk disease; chronic urinary incontinence and atrial fibrillation. Coronary artery disease, heart attack, cataracts and gout. PAST SURGICAL HISTORY: Appendectomy, hysterectomy, tonsillectomy and left shoulder arthroplasty. FAMILY HISTORY: Positive for diabetes mellitus, cardiovascular disease, cardiomyopathy and cancer. SOCIAL HISTORY: The patient lives at home alone. Nonsmoker. ALLERGIES: CEPHALEXIN CAUSING HIVES. She is tolerating Ceftin without problems. She has taken amoxicillin in the past as well without problems. CURRENT MEDICATIONS: Include Rocephin and prednisone. Other medications are available and they have been reviewed on the [facility]. Home medications include prednisone. REVIEW OF SYSTEMS: Per HPI; otherwise, all other review of systems are negative. PHYSICAL EXAMINATION: GENERAL: The patient is sitting in a chair, alert, relaxed appearance. VITAL SIGNS: Temperature is 97.5, blood pressure 147/63, heart rate 64, respiratory rate 16 and pulse oximetry is 94% on 3 liters. HEENT: Pupils equally round, normal conjunctivae. Oral mucosa is pink and moist. NECK: Supple. LUNGS: Clear to auscultation. HEART: S1, S2. ABDOMEN: Bowel sounds active. Soft, nontender. GENITOURINARY: Dowd in place (01/13/2018). EXTREMITIES: No gross edema or cyanosis. SKIN: Warm, without rash. NEUROLOGIC: Alert and oriented x 3. LABORATORY DATA: Today's WBC 11.6, hemoglobin 8.0 and platelet count 242,000. Electrolytes are unremarkable with creatinine 2.6, BUN 30 and glucose 95. Lactic acid 1.3. Urinalysis unremarkable for infection. Blood cultures from 01/12/2018 showed gram-variable rods in 2 of 3 bottles. Chest x-ray: No acute infiltrate. Mildly enlarged, tortuous thoracic aorta. IMPRESSION: 1. Sepsis with gram-variable rods bacteremia from 01/12/2018. 2. Acute exacerbation of chronic obstructive pulmonary disease, oxygen dependent. 3. Leukocytosis, improved on steroids. 4. CEPHALEXIN ALLERGY CAUSING HIVES. She is tolerating Rocephin and has had amoxicillin in the past without problems. 5. Chronic urinary incontinence, status post Dowd catheter placement. 6. Acute kidney injury on chronic kidney disease. 7. Diarrhea, on admission, resolved. PLAN: Change antibiotics to Zosyn., renal dosing. Hopefully, the blood cultures are a contamination; we are awaiting identification. Continue to monitor laboratory values. Consider renal evaluation. Supportive care. Thank you, Dr. Roberto, for asking us to participate in this patient's care. Should you have further questions or concerns, please call. The patient seen and examined and plan of care implemented by Dr. Flor Ball. FLOR BALL MD DR: MITZI/duncan JOB#: [id number] / [id number]
[2018-01-15] MEDS: HYDROcodone/APAP 7.5/325MG 1 TAB TABLET PO PRN ×2 (02:43→07:40)
[2018-01-15 03:55] VITALS: BP 116/56
[2018-01-15] MEDS: PIPERACILLIN/TAZOBACTAM 2.25 GM in IV NORMAL SALINE 50ML 50 ML IV SCH ×3 (06:05→21:02)
[2018-01-15] MEDS: PANTOPRAZOLE 40 MG TABLET.DR. PO SCH ×2 (06:05→11:35)
[2018-01-15 07:00] VITALS: BP 134/56
[2018-01-15 07:16] LABS: BASO % 0 % (0-3); EOS % 0 % (0-3); HEMATOCRIT 24.6 % (36.0-47.0); HEMOGLOBIN 8.1 g/dL (12.0-15.5); LYMPH # 0.6 x10^3/uL (1.0-4.8); LYMPH % 6 % (24-48); MEAN CORPUSCULAR HEMOGLOBIN 28 pg (25-35); MEAN CORPUSCULAR HGB CONC 33 g/dL (31-37); MEAN CORPUSCULAR VOLUME 85 fL (79-100); MONO # 0.6 x10^3/uL (0.0-1.1); MONO % 5 % (0-9); NEUT # 9.4 x10^3uL (1.8-7.7); NEUT % 88 % (31-73); PLATELET COUNT 255 x10^3/uL (140-400); RED CELL DISTRIBUTION WIDTH 17.8 % (11.5-14.5); WHITE BLOOD COUNT 10.6 x10^3/uL (4.0-11.0)
[2018-01-15 07:28] LABS: CALCIUM 8.7 mg/dL (8.5-10.1); CREATININE 2.4 mg/dL (0.6-1.0); GFR 19.5; POTASSIUM 4.4 mmol/L (3.5-5.1)
[2018-01-15] MEDS: DOCUSATE SODIUM 100 MG CAPSULE. PO SCH ×2 (09:00→21:00)
--- NOTE | 2018-01-15 09:44 | PDOC ---
PROGRESS NOTES Subjective Subjective feels good ,want to go home Objective Objective Vital Signs Date Time Temp Pulse Resp B/P (MAP) Pulse Ox O2 Delivery O2 Flow Rate FiO2 01/15/18 07:40 95 Nasal Cannula 3.0 01/15/18 07:00 98.0 57 20 134/56 (82) 98.0 Intake and Output 01/15/18 07:00 Intake Total 660 ml Output Total 2950 ml Balance -2290 ml Intake Oral 660 ml Output Urine Total 2950 ml Physical Exam Abdomen: Normal bowel sounds, Soft Heart: Regular rate, Normal S1, Normal S2 Extremities: No clubbing General: Alert HEENT: Atraumatic Lungs: Clear to auscultation MUSCULOSKELETAL: No swelling, Other Neck: Supple Neuro: Normal speech Psych/Mental Status: Mood NL Skin: No significant lesion COMMENT carballo ,chronic bladder retention Diagnosis Problem List Problems Medical Problems: (1) Generalized weakness Status: Acute (2) Total self-care deficit Status: Acute Assessment Assessment 1. Acute bronchitis, viral, improving. 2. Diarrhea, etiology not clear. 3. Recurrent urinary tract infections. The patient has also history of hematuria and had cystoscopy 2-1/2 weeks ago. 4. Leukocytosis, improving, etiology not clear. The patient is also on prednisone. 5. Gram variable rods bacteremia, etiology not clear. 6. Weakness. 7. Chronic obstructive pulmonary disease. 8. Hypertension. 9. Coronary artery disease. 10. History of rheumatoid arthritis. 11. History of recurrent falls. 12. Osteoarthritis. 13. Lack of social support. PLAN: blood c/s neg. wbc 10. cr 2.5 stable ch reanl failure stage 4. can d/c home today. hospital bed home health. d/c home on carballo. I will consult Dr. Gr to see if she needs any antibiotics. Clinically, she seems to be stable other than being weak and not having anyone to help her at home. We will follow up on the blood cultures to see if we need to put her on any antibiotics because of her history of recurrent UTI, abnormal UA as well as a leukocytosis and abnormal blood culture. Consultation has been obtained with Dr. Jenkins for rehab evaluation and management and Dr. Gr for Infectious Disease evaluation and management. I will recheck labs tomorrow. Clinically, the patient appears to be stable at this time. For details, please refer to the orders. Clinically improving. Await blood cultures report on sensitivity and identification of gram variable rods. Continue IV Rocephin. Await infectious disease consultation and evaluation and management. Plan Plan of Care Problems Medical Problems: (1) Generalized weakness Status: Acute (2) Total self-care deficit Status: Acute Comment Review of Relevant I have reviewed the following items amador (where applicable) has been applied. Labs Laboratory Tests Test 01/14/18 10:46 01/14/18 16:36 01/15/18 06:30 01/15/18 07:35 Glucose (Fingerstick) 114 mg/dL (70-99) 142 mg/dL (70-99) 79 mg/dL (70-99) White Blood Count 10.6 x10^3/uL (4.0-11.0) Red Blood Count 2.90 x10^6/uL (3.50-5.40) Hemoglobin 8.1 g/dL (12.0-15.5) Hematocrit 24.6 % (36.0-47.0) Mean Corpuscular Volume 85 fL (79-100) Mean Corpuscular Hemoglobin 28 pg (25-35) Mean Corpuscular Hemoglobin Concent 33 g/dL (31-37) Red Cell Distribution Width 17.8 % (11.5-14.5) Platelet Count 255 x10^3/uL (140-400) Neutrophils (%) (Auto) 88 % (31-73) Lymphocytes (%) (Auto) 6 % (24-48) Monocytes (%) (Auto) 5 % (0-9) Eosinophils (%) (Auto) 0 % (0-3) Basophils (%) (Auto) 0 % (0-3) Neutrophils # (Auto) 9.4 x10^3uL (1.8-7.7) Lymphocytes # (Auto) 0.6 x10^3/uL (1.0-4.8) Monocytes # (Auto) 0.6 x10^3/uL (0.0-1.1) Eosinophils # (Auto) 0.0 x10^3/uL (0.0-0.7) Basophils # (Auto) 0.0 x10^3/uL (0.0-0.2) Sodium Level 137 mmol/L (136-145) Potassium Level 4.4 mmol/L (3.5-5.1) Chloride Level 102 mmol/L (98-107) Carbon Dioxide Level 28 mmol/L (21-32) Anion Gap 7 (6-14) Blood Urea Nitrogen 27 mg/dL (7-20) Creatinine 2.4 mg/dL (0.6-1.0) Estimated GFR (Cockcroft-Gault) 19.5 Glucose Level 93 mg/dL (70-99) Calcium Level 8.7 mg/dL (8.5-10.1) Microbiology 01/13/18 Blood Culture - Preliminary, Resulted NO GROWTH AFTER 2 DAYS Medications Current Medications Piperacillin Sod/ Tazobactam Sod (Zosyn Per Pharmacy) 1 each PRN DAILY PRN MC SEE COMMENTS; Start 01/14/18 at 12:45 Piperacillin Sod/ Tazobactam Sod 2.25 gm/Sodium Chloride 50 ml @ 100 mls/hr Q8HRS IV Last administered on 01/15/18at 06:05; Start 01/14/18 at 14:00 Vitals/I & O Vital Sign - Last 24 Hours 01/14/18 01/14/18 01/14/18 01/14/18 11:00 15:00 19:33 19:52 Temp 97.5 97.8 98.1 97.5 97.8 98.1 Pulse 64 60 58 58 Resp 16 18 16 B/P (MAP) 147/63 (91) 118/62 (80) 108/52 (70) 108/52 Pulse Ox 94 96 98 O2 Delivery Nasal Cannula Nasal Cannula Nasal Cannula O2 Flow Rate 3.0 3.0 3.0 01/14/18 01/14/18 01/14/18 01/15/18 19:53 20:00 23:16 02:43 Temp 98.1 98.1 Pulse 54 Resp 20 16 20 B/P (MAP) 116/57 (76) Pulse Ox 98 94 94 O2 Delivery Nasal Cannula Nasal Cannula Nasal Cannula Nasal Cannula O2 Flow Rate 3.0 3.0 3.0 3.0 01/15/18 01/15/18 01/15/18 01/15/18 03:43 03:55 07:00 07:40 Temp 97.5 98.0 97.5 98.0 Pulse 64 57 Resp 20 20 20 B/P (MAP) 116/56 (76) 134/56 (82) Pulse Ox 94 95 94 95 O2 Delivery Nasal Cannula Nasal Cannula Nasal Cannula Nasal Cannula O2 Flow Rate 3.0 3.0 3.0 3.0 Intake and Output 01/14/18 01/14/18 01/15/18 15:00 23:00 07:00 Intake Total 500 ml 160 ml Output Total 1200 ml 1750 ml Balance -700 ml -1590 ml NICOLLE WHITE MD Jan 15, 2018 09:44
--- NOTE | 2018-01-15 09:53 | DISCH ---
DISCHARGE WITH HOME HEALTH DISCHARGE INFORMATION: Final Diagnosis: Problems Medical Problems: (1) Generalized weakness Status: Acute (2) Total self-care deficit Status: Acute Condition on Discharge: Stable CODE STATUS: Code Status: Full HOME HEALTH: Face to Face: I certify this patient is under my care and that I, or a nurse practitioner or physician's assistant construction superintendent working with me, had a face to face encounter that meets the physician face to face encounter requirements with this patient on 01/15/18. Medical Complications: CHF, COPD Physical Therapy For: Evalulation/Treatment Occupational Therapy For: Evaluation/Treatment Home Health Aide For: Self-care Pt Meets Homebound Status: Limited distance walking POST DISCHARGE ORDERS: Activity Instructions for Disc: Activity as tolerated Weight Bearing Status after Di: As tolerated DIET AFTER DISCHARGE: Cardiac CHECKS AFTER DISCHARGE: Checks after discharge: Check blood press - daily, Check blood sugar, ac/hs TREATMENT/EQUIPMENT ORDERS: Adaptive Equipment Issued: Wheelchair Discharge Respiratory Equipmen: Oxygen CERTIFICATION STATEMENT: Certification Statement: Certification Statement: Based on the above finding, I certify that this patient is confined to the home and needs intermittent group home care, physical therapy and/or speech therapy, or continues to need occupational therapy.~ This patient is under my care, and I have initiated the establishment of the plan of care.~ This patient will be followed by myself or a community physician who will periodically review the plan of care. Home Meds Reported Medications Amlodipine Besylate (AMLODIPINE BESYLATE) 5 Mg Tablet, 5 MG PO DAILY, TAB 01/12/18 Polyethylene Glycol 3350 (MIRALAX) 17 Gm Powd.pack, 1 PACKET PO DAILY PRN for CONSTIPATION, #30 PACKET 3 Refills 01/12/18 Docusate Sodium (DOCUSATE SODIUM) 100 Mg Capsule, 1 CAP PO BID, #30 CAP 01/12/18 Hydrocodone Bit/Acetaminophen (HYDROCODONE-APAP 7.5-325 ) 1 Each Tablet, 1 TAB PO PRN Q6HRS PRN for PAIN, TAB 0 Refills 01/12/18 Aspirin (ASPIRIN) 81 Mg Tab.chew, 2 TAB PO DAILY, #90 TAB 3 Refills 12/03/17 Omeprazole (OMEPRAZOLE) 40 Mg Capsule.dr, 40 MG PO DAILY07 12/03/17 Gabapentin (Gabapentin) 100 Mg Capsule, 100 MG PO TID 12/03/17 Colestipol Hcl (COLESTID) 1 Gm Tablet, 1 GM PO BID 12/03/17 Potassium Chloride (KLOR-CON 10) 10 Meq Tablet.er, 10 MG PO DAILY 12/03/17 Lactobacillus Acidophilus (ACIDOPHILUS) 1 Each Tablet, 1 EACH PO DAILY, TAB 12/03/17 Flecainide Acetate (FLECAINIDE ACETATE) 50 Mg Tablet, 50 MG PO BID 12/03/17 Furosemide (FUROSEMIDE) 40 Mg Tablet, 40 MG PO BID92 12/03/17 Prednisone (PREDNISONE) 5 Mg Tablet, 10 MG PO DAILY 12/03/17 Metoprolol Succinate (METOPROLOL SUCCINATE ( XL )) 100 Mg Tab.er.24h, 100 MG PO DAILY 12/03/17 Atorvastatin Calcium (ATORVASTATIN CALCIUM) 20 Mg Tablet, 20 MG PO HS for FOR CHOLESTEROL, #30 TAB 0 Refills 12/03/17 Hydroxychloroquine Sulfate (HYDROXYCHLOROQUINE SULFATE) 200 Mg Tablet, 1 TAB PO BID, #180 TAB 1 Refill 02/08/14 Folic Acid (FOLIC ACID) 1 Mg Tablet, 1 MG PO DAILY 07/01/13 Meclizine Hcl (MECLIZINE HCL) 25 Mg Tablet, 25 MG PO TID 07/01/13 Levothyroxine Sodium (LEVOTHYROXINE SODIUM) 75 Mcg Tablet, 75 MCG PO DAILY 07/01/13 NICOLLE WHITE MD Jan 15, 2018 09:53
--- NOTE | 2018-01-15 11:00 | PDOC ---
Infectious Disease Note Subjective Subjective feeling good ROS ROS no n/v/d/sob Vital Sign Vital Signs Vital Signs Date Time Temp Pulse Resp B/P (MAP) Pulse Ox O2 Delivery O2 Flow Rate FiO2 01/15/18 07:40 95 Nasal Cannula 3.0 01/15/18 07:00 98.0 57 20 134/56 (82) 98.0 Physical Exam PHYSICAL EXAM The patient is sitting in a chair, alert, relaxed appearance. VITAL SIGNS: stable HEENT: Pupils equally round, normal conjunctivae. Oral mucosa is pink and moist. NECK: Supple. LUNGS: Clear to auscultation. HEART: S1, S2. ABDOMEN: Bowel sounds active. Soft, nontender. GENITOURINARY: Carballo in place (01/13/2018). EXTREMITIES: No gross edema or cyanosis. SKIN: Warm, without rash. NEUROLOGIC: Alert and oriented x 3. Labs Lab Laboratory Tests Test 01/14/18 16:36 01/15/18 06:30 01/15/18 07:35 Glucose (Fingerstick) 142 mg/dL (70-99) 79 mg/dL (70-99) White Blood Count 10.6 x10^3/uL (4.0-11.0) Red Blood Count 2.90 x10^6/uL (3.50-5.40) Hemoglobin 8.1 g/dL (12.0-15.5) Hematocrit 24.6 % (36.0-47.0) Mean Corpuscular Volume 85 fL (79-100) Mean Corpuscular Hemoglobin 28 pg (25-35) Mean Corpuscular Hemoglobin Concent 33 g/dL (31-37) Red Cell Distribution Width 17.8 % (11.5-14.5) Platelet Count 255 x10^3/uL (140-400) Neutrophils (%) (Auto) 88 % (31-73) Lymphocytes (%) (Auto) 6 % (24-48) Monocytes (%) (Auto) 5 % (0-9) Eosinophils (%) (Auto) 0 % (0-3) Basophils (%) (Auto) 0 % (0-3) Neutrophils # (Auto) 9.4 x10^3uL (1.8-7.7) Lymphocytes # (Auto) 0.6 x10^3/uL (1.0-4.8) Monocytes # (Auto) 0.6 x10^3/uL (0.0-1.1) Eosinophils # (Auto) 0.0 x10^3/uL (0.0-0.7) Basophils # (Auto) 0.0 x10^3/uL (0.0-0.2) Sodium Level 137 mmol/L (136-145) Potassium Level 4.4 mmol/L (3.5-5.1) Chloride Level 102 mmol/L (98-107) Carbon Dioxide Level 28 mmol/L (21-32) Anion Gap 7 (6-14) Blood Urea Nitrogen 27 mg/dL (7-20) Creatinine 2.4 mg/dL (0.6-1.0) Estimated GFR (Cockcroft-Gault) 19.5 Glucose Level 93 mg/dL (70-99) Calcium Level 8.7 mg/dL (8.5-10.1) Micro BC + gram variable noy, id pending repeat neg Objective Assessment 1. Sepsis with gram-variable rods bacteremia from 01/12/2018. 2. Acute exacerbation of chronic obstructive pulmonary disease, oxygen dependent. 3. Leukocytosis, improved on steroids. 4. CEPHALEXIN ALLERGY CAUSING HIVES. She is tolerating Rocephin and has had amoxicillin in the past without problems. 5. Chronic urinary incontinence, status post Carballo catheter placement. 6. Acute kidney injury on chronic kidney disease. 7. Diarrhea, on admission, resolved. Plan Plan of Care Change Rocephin to Zosyn, renal dosing - hopefully a contamination f/u cultures Monitor lab values d/c carballo Supportive care D/w ROSALINDA EARL MD Jan 15, 2018 11:00
[2018-01-15] MEDS: COLESTIPOL HCL 1 GM TABLET PO SCH ×2 (11:36→21:01)
[2018-01-15] MEDS: GABAPENTIN 100 MG CAPSULE. PO SCH ×3 (11:37→21:01)
[2018-01-15] MEDS: LACTOBACILLUS RHAMNOSUS GG 1 CAPSULE. PO SCH (11:37)
[2018-01-15] MEDS: FOLIC ACID 1 MG TABLET. PO SCH (11:37)
[2018-01-15] MEDS: LEVOTHYROXINE 75 MCG TABLET PO SCH (11:38)
[2018-01-15] MEDS: ASPIRIN CHEWABLE 81 MG TABLET. PO SCH (11:39)
[2018-01-15] MEDS: POTASSIUM CHLORIDE 10 MEQ TABLET.ER. PO SCH (11:39)
[2018-01-15] MEDS: METOPROLOL SUCC 24HR ER 100 MG TAB.ER.24H. PO SCH (11:41)
[2018-01-15] MEDS: FLECAINIDE ACETATE 50 MG TABLET. PO SCH ×2 (11:42→21:01)
[2018-01-15] MEDS: FUROSEMIDE 40 MG TABLET. PO SCH ×2 (11:43→16:41)
[2018-01-15] MEDS: HYDROXYCHLOROQUINE 200 MG TABLET PO SCH ×2 (11:43→21:01)
[2018-01-15] MEDS: predniSONE 10 MG TABLET PO SCH (11:44)
[2018-01-15] MEDS: amLODIPine BESYLATE 5 MG TABLET PO SCH (11:45)
--- NOTE | 2018-01-15 13:08 | PDOC ---
PROGRESS NOTES Subjective Subjective No new complaints. Objective Objective Vital Signs Date Time Temp Pulse Resp B/P (MAP) Pulse Ox O2 Delivery O2 Flow Rate FiO2 01/15/18 11:45 130/79 01/15/18 08:45 Room Air 01/15/18 08:00 3.0 01/15/18 07:40 95 01/15/18 07:00 98.0 57 20 98.0 Intake and Output 01/15/18 07:00 Intake Total 660 ml Output Total 2950 ml Balance -2290 ml Intake Oral 660 ml Output Urine Total 2950 ml Physical Exam Physical Exam She is comfortable and wants hospital bed for use at home and she continues with stiff knees and right shoulder and mobility and self care limitations. Assessment Assessment Problems Medical Problems: (1) Generalized weakness Status: Acute (2) Total self-care deficit Status: Acute Plan Plan of Care Agree with plans for home when medically stable. Comment Review of Relevant I have reviewed the following items amador (where applicable) has been applied. Labs Laboratory Tests Test 01/13/18 16:12 01/14/18 05:00 01/14/18 07:18 01/14/18 10:46 Glucose (Fingerstick) 135 mg/dL (70-99) 81 mg/dL (70-99) 114 mg/dL (70-99) White Blood Count 11.6 x10^3/uL (4.0-11.0) Red Blood Count 2.86 x10^6/uL (3.50-5.40) Hemoglobin 8.0 g/dL (12.0-15.5) Hematocrit 24.2 % (36.0-47.0) Mean Corpuscular Volume 84 fL (79-100) Mean Corpuscular Hemoglobin 28 pg (25-35) Mean Corpuscular Hemoglobin Concent 33 g/dL (31-37) Red Cell Distribution Width 18.1 % (11.5-14.5) Platelet Count 242 x10^3/uL (140-400) Neutrophils (%) (Auto) 86 % (31-73) Lymphocytes (%) (Auto) 8 % (24-48) Monocytes (%) (Auto) 6 % (0-9) Eosinophils (%) (Auto) 0 % (0-3) Basophils (%) (Auto) 0 % (0-3) Neutrophils # (Auto) 9.9 x10^3uL (1.8-7.7) Lymphocytes # (Auto) 0.9 x10^3/uL (1.0-4.8) Monocytes # (Auto) 0.7 x10^3/uL (0.0-1.1) Eosinophils # (Auto) 0.0 x10^3/uL (0.0-0.7) Basophils # (Auto) 0.0 x10^3/uL (0.0-0.2) Sodium Level 136 mmol/L (136-145) Potassium Level 4.6 mmol/L (3.5-5.1) Chloride Level 101 mmol/L (98-107) Carbon Dioxide Level 28 mmol/L (21-32) Anion Gap 7 (6-14) Blood Urea Nitrogen 30 mg/dL (7-20) Creatinine 2.6 mg/dL (0.6-1.0) Estimated GFR (Cockcroft-Gault) 17.8 BUN/Creatinine Ratio 12 (6-20) Glucose Level 95 mg/dL (70-99) Calcium Level 8.2 mg/dL (8.5-10.1) Magnesium Level 1.7 mg/dL (1.8-2.4) Total Bilirubin 0.3 mg/dL (0.2-1.0) Aspartate Amino Transf (AST/SGOT) 19 U/L (15-37) Alanine Aminotransferase (ALT/SGPT) 15 U/L (14-59) Alkaline Phosphatase 92 U/L (46-116) Creatine Kinase 48 U/L (26-192) Total Protein 6.0 g/dL (6.4-8.2) Albumin 2.1 g/dL (3.4-5.0) Albumin/Globulin Ratio 0.5 (1.0-1.7) Test 01/14/18 16:36 01/15/18 06:30 01/15/18 07:35 01/15/18 11:54 Glucose (Fingerstick) 142 mg/dL (70-99) 79 mg/dL (70-99) 83 mg/dL (70-99) White Blood Count 10.6 x10^3/uL (4.0-11.0) Red Blood Count 2.90 x10^6/uL (3.50-5.40) Hemoglobin 8.1 g/dL (12.0-15.5) Hematocrit 24.6 % (36.0-47.0) Mean Corpuscular Volume 85 fL (79-100) Mean Corpuscular Hemoglobin 28 pg (25-35) Mean Corpuscular Hemoglobin Concent 33 g/dL (31-37) Red Cell Distribution Width 17.8 % (11.5-14.5) Platelet Count 255 x10^3/uL (140-400) Neutrophils (%) (Auto) 88 % (31-73) Lymphocytes (%) (Auto) 6 % (24-48) Monocytes (%) (Auto) 5 % (0-9) Eosinophils (%) (Auto) 0 % (0-3) Basophils (%) (Auto) 0 % (0-3) Neutrophils # (Auto) 9.4 x10^3uL (1.8-7.7) Lymphocytes # (Auto) 0.6 x10^3/uL (1.0-4.8) Monocytes # (Auto) 0.6 x10^3/uL (0.0-1.1) Eosinophils # (Auto) 0.0 x10^3/uL (0.0-0.7) Basophils # (Auto) 0.0 x10^3/uL (0.0-0.2) Sodium Level 137 mmol/L (136-145) Potassium Level 4.4 mmol/L (3.5-5.1) Chloride Level 102 mmol/L (98-107) Carbon Dioxide Level 28 mmol/L (21-32) Anion Gap 7 (6-14) Blood Urea Nitrogen 27 mg/dL (7-20) Creatinine 2.4 mg/dL (0.6-1.0) Estimated GFR (Cockcroft-Gault) 19.5 Glucose Level 93 mg/dL (70-99) Calcium Level 8.7 mg/dL (8.5-10.1) Laboratory Tests Test 01/14/18 16:36 01/15/18 06:30 01/15/18 07:35 01/15/18 11:54 Glucose (Fingerstick) 142 mg/dL (70-99) 79 mg/dL (70-99) 83 mg/dL (70-99) White Blood Count 10.6 x10^3/uL (4.0-11.0) Red Blood Count 2.90 x10^6/uL (3.50-5.40) Hemoglobin 8.1 g/dL (12.0-15.5) Hematocrit 24.6 % (36.0-47.0) Mean Corpuscular Volume 85 fL (79-100) Mean Corpuscular Hemoglobin 28 pg (25-35) Mean Corpuscular Hemoglobin Concent 33 g/dL (31-37) Red Cell Distribution Width 17.8 % (11.5-14.5) Platelet Count 255 x10^3/uL (140-400) Neutrophils (%) (Auto) 88 % (31-73) Lymphocytes (%) (Auto) 6 % (24-48) Monocytes (%) (Auto) 5 % (0-9) Eosinophils (%) (Auto) 0 % (0-3) Basophils (%) (Auto) 0 % (0-3) Neutrophils # (Auto) 9.4 x10^3uL (1.8-7.7) Lymphocytes # (Auto) 0.6 x10^3/uL (1.0-4.8) Monocytes # (Auto) 0.6 x10^3/uL (0.0-1.1) Eosinophils # (Auto) 0.0 x10^3/uL (0.0-0.7) Basophils # (Auto) 0.0 x10^3/uL (0.0-0.2) Sodium Level 137 mmol/L (136-145) Potassium Level 4.4 mmol/L (3.5-5.1) Chloride Level 102 mmol/L (98-107) Carbon Dioxide Level 28 mmol/L (21-32) Anion Gap 7 (6-14) Blood Urea Nitrogen 27 mg/dL (7-20) Creatinine 2.4 mg/dL (0.6-1.0) Estimated GFR (Cockcroft-Gault) 19.5 Glucose Level 93 mg/dL (70-99) Calcium Level 8.7 mg/dL (8.5-10.1) Microbiology 01/13/18 Blood Culture - Preliminary, Resulted NO GROWTH AFTER 2 DAYS Medications Current Medications Amlodipine Besylate (Norvasc) 5 mg DAILY PO Last administered on 01/15/18at 11: 45; Start 01/13/18 at 10:30 Aspirin (Children'S Aspirin) 162 mg DAILY PO Last administered on 01/15/18 11: 39; Start 01/13/18 at 10:30 Atorvastatin Calcium (Lipitor) 20 mg HS PO Last administered on 01/14/18 19:52 ; Start 01/13/18 at 21:00 Colestipol HCl (Colestid) 1 gm BID PO Last administered on 01/15/18 11:36; Start 01/13/18 at 21:00 Docusate Sodium (Colace) 100 mg BID PO Last administered on 01/14/18 19:52; Start 01/13/18 at 10:30 Flecainide Acetate (Tambocor) 50 mg BID PO Last administered on 01/15/18 11:42 ; Start 01/13/18 at 10:30 Folic Acid (Folic Acid) 1 mg DAILY PO Last administered on 01/15/18 11:37; Start 01/13/18 at 10:30 Furosemide (Lasix) 40 mg BID92 PO Last administered on 01/15/18 11:43; Start 01/13/18 at 10:30 Acetaminophen/ Hydrocodone Bitart (Lortab 7.5/325) 1 tab PRN Q6HRS PRN PO MODERATE-SEVERE PAIN Last administered on 01/15/18 07:40; Start 01/13/18 at 10: 00 Levothyroxine Sodium (Synthroid) 75 mcg DAILY07 PO Last administered on 11:38; Start 01/13/18 at 10:30 Metoprolol Succinate (Toprol Xl) 100 mg DAILY PO Last administered on 11:41; Start 01/13/18 at 10:30 Potassium Chloride (Klor-Con) 10 meq DAILY PO Last administered on 01/15/18 11 :39; Start 01/13/18 at 10:30 Prednisone (Prednisone) 10 mg DAILY PO Last administered on 01/15/18 11:44; Start 01/13/18 at 10:30 Gabapentin (Neurontin) 100 mg TID PO Last administered on 01/15/18 11:37; Start 01/13/18 at 14:00 Hydroxychloroquine Sulfate (Plaquenil) 200 mg BID PO Last administered on 11:43; Start 01/13/18 at 10:30 Lactobacillus Rhamnosus (Culturelle) 1 cap DAILY PO Last administered on at 11:37; Start 01/13/18 at 10:30 Pantoprazole Sodium (Protonix) 40 mg DAILYAC PO Last administered on 01/15/18at 11:35; Start 01/13/18 at 10:30 Acetaminophen (Tylenol) 650 mg PRN Q6HRS PRN PO MILD PAIN / TEMP; Start at 10:00 Ceftriaxone Sodium 1 gm/ Dextrose 50 ml @ 100 mls/hr Q24H IV ; Start 01/13/18 at 12:00; Status UNV Ceftriaxone Sodium (Rocephin) 1 gm Q24H IVP Last administered on 01/13/18at 13:44 ; Start 01/13/18 at 13:00; Stop 01/14/18 at 12:36; Status DC Piperacillin Sod/ Tazobactam Sod (Zosyn Per Pharmacy) 1 each PRN DAILY PRN [facility] SEE COMMENTS; Start 01/14/18 at 12:45 Piperacillin Sod/ Tazobactam Sod 2.25 gm/Sodium Chloride 50 ml @ 100 mls/hr Q8HRS IV Last administered on 01/15/18at 06:05; Start 01/14/18 at 14:00 Active Scripts Active Reported Amlodipine Besylate 5 Mg Tablet 5 Mg PO DAILY Miralax (Polyethylene Glycol 3350) 17 Gm Powd.pack 1 Packet PO DAILY PRN Docusate Sodium 100 Mg Capsule 1 Cap PO BID Hydrocodone-Apap 7.5-325 (Hydrocodone Bit/Acetaminophen) 1 Each Tablet 1 Tab PO PRN Q6HRS PRN Aspirin 81 Mg Tab.chew 2 Tab PO DAILY Omeprazole 40 Mg Capsule.dr 40 Mg PO DAILY07 Gabapentin 100 Mg Capsule 100 Mg PO TID Colestid (Colestipol Hcl) 1 Gm Tablet 1 Gm PO BID Klor-Con 10 (Potassium Chloride) 10 Meq Tablet.er 10 Mg PO DAILY Acidophilus (Lactobacillus Acidophilus) 1 Each Tablet 1 Each PO DAILY Flecainide Acetate 50 Mg Tablet 50 Mg PO BID Furosemide 40 Mg Tablet 40 Mg PO BID92 Prednisone 5 Mg Tablet 10 Mg PO DAILY Metoprolol Succinate ( Xl ) (Metoprolol Succinate) 100 Mg Tab.er.24h 100 Mg PO DAILY Atorvastatin Calcium 20 Mg Tablet 20 Mg PO HS Hydroxychloroquine Sulfate 200 Mg Tablet 1 Tab PO BID Folic Acid 1 Mg Tablet 1 Mg PO DAILY Meclizine Hcl 25 Mg Tablet 25 Mg PO TID Levothyroxine Sodium 75 Mcg Tablet 75 Mcg PO DAILY Vitals/I & O Vital Sign - Last 24 Hours 01/14/18 01/14/18 01/14/18 01/14/18 15:00 19:33 19:52 19:53 Temp 97.8 98.1 97.8 98.1 Pulse 60 58 58 Resp 18 16 20 B/P (MAP) 118/62 (80) 108/52 (70) 108/52 Pulse Ox 96 98 98 O2 Delivery Nasal Cannula Nasal Cannula Nasal Cannula O2 Flow Rate 3.0 3.0 3.0 01/14/18 01/14/18 01/15/18 01/15/18 20:00 23:16 02:43 03:43 Temp 98.1 98.1 Pulse 54 Resp 16 20 20 B/P (MAP) 116/57 (76) Pulse Ox 94 94 94 O2 Delivery Nasal Cannula Nasal Cannula Nasal Cannula O2 Flow Rate 3.0 3.0 3.0 3.0 01/15/18 01/15/18 01/15/18 01/15/18 03:55 07:00 07:40 08:00 Temp 97.5 98.0 97.5 98.0 Pulse 64 57 Resp 20 20 B/P (MAP) 116/56 (76) 134/56 (82) Pulse Ox 95 94 95 O2 Delivery Nasal Cannula Nasal Cannula Nasal Cannula Nasal Cannula O2 Flow Rate 3.0 3.0 3.0 3.0 01/15/18 01/15/18 01/15/18 01/15/18 08:45 11:41 11:42 11:45 B/P (MAP) 130/79 130/79 130/79 O2 Delivery Room Air Intake and Output 01/14/18 01/14/18 01/15/18 15:00 23:00 07:00 Intake Total 500 ml 160 ml Output Total 1200 ml 1750 ml Balance -700 ml -1590 ml REGI VALDEZ MD Jan 15, 2018 13:08
[2018-01-15 15:00] VITALS: BP 109/91
[2018-01-15 19:24] VITALS: BP 121/57
[2018-01-15] MEDS: ATORVASTATIN CALCIUM 20 MG TABLET PO SCH (21:01)
[2018-01-15 23:36] VITALS: BP 116/51
[2018-01-16 03:50] VITALS: BP 127/61
[2018-01-16] MEDS: PIPERACILLIN/TAZOBACTAM 2.25 GM in IV NORMAL SALINE 50ML 50 ML IV SCH ×2 (05:43→13:38)
[2018-01-16 07:00] VITALS: BP 134/53
--- NOTE | 2018-01-16 08:58 | PDOC ---
PROGRESS NOTES Subjective Subjective No new complaints. Objective Objective Vital Signs Date Time Temp Pulse Resp B/P (MAP) Pulse Ox O2 Delivery O2 Flow Rate FiO2 01/16/18 07:00 97.8 59 18 134/53 (80) 95 Nasal Cannula 3.0 97.8 Intake and Output 01/16/18 07:00 Intake Total 1400 ml Output Total 3050 ml Balance -1650 ml Intake Oral 1400 ml Output Urine Total 3050 ml # Bowel Movements 1 Physical Exam Physical Exam She is comfortable sitting at edge of bed and she had indwelling Dowd catheter in place and would like to keep it in place instead of incontinence and getting up several times. Assessment Assessment Problems Medical Problems: (1) Generalized weakness Status: Acute (2) Total self-care deficit Status: Acute Plan Plan of [facility] with home health follow up when medically stable. Comment Review of Relevant I have reviewed the following items amador (where applicable) has been applied. Labs Laboratory Tests Test 01/14/18 10:46 01/14/18 16:36 01/15/18 06:30 01/15/18 07:35 Glucose (Fingerstick) 114 mg/dL (70-99) 142 mg/dL (70-99) 79 mg/dL (70-99) White Blood Count 10.6 x10^3/uL (4.0-11.0) Red Blood Count 2.90 x10^6/uL (3.50-5.40) Hemoglobin 8.1 g/dL (12.0-15.5) Hematocrit 24.6 % (36.0-47.0) Mean Corpuscular Volume 85 fL (79-100) Mean Corpuscular Hemoglobin 28 pg (25-35) Mean Corpuscular Hemoglobin Concent 33 g/dL (31-37) Red Cell Distribution Width 17.8 % (11.5-14.5) Platelet Count 255 x10^3/uL (140-400) Neutrophils (%) (Auto) 88 % (31-73) Lymphocytes (%) (Auto) 6 % (24-48) Monocytes (%) (Auto) 5 % (0-9) Eosinophils (%) (Auto) 0 % (0-3) Basophils (%) (Auto) 0 % (0-3) Neutrophils # (Auto) 9.4 x10^3uL (1.8-7.7) Lymphocytes # (Auto) 0.6 x10^3/uL (1.0-4.8) Monocytes # (Auto) 0.6 x10^3/uL (0.0-1.1) Eosinophils # (Auto) 0.0 x10^3/uL (0.0-0.7) Basophils # (Auto) 0.0 x10^3/uL (0.0-0.2) Sodium Level 137 mmol/L (136-145) Potassium Level 4.4 mmol/L (3.5-5.1) Chloride Level 102 mmol/L (98-107) Carbon Dioxide Level 28 mmol/L (21-32) Anion Gap 7 (6-14) Blood Urea Nitrogen 27 mg/dL (7-20) Creatinine 2.4 mg/dL (0.6-1.0) Estimated GFR (Cockcroft-Gault) 19.5 Glucose Level 93 mg/dL (70-99) Calcium Level 8.7 mg/dL (8.5-10.1) Test 01/15/18 11:54 01/15/18 16:54 01/15/18 20:39 01/16/18 07:32 Glucose (Fingerstick) 83 mg/dL (70-99) 107 mg/dL (70-99) 133 mg/dL (70-99) 81 mg/dL (70-99) Laboratory Tests Test 01/15/18 11:54 01/15/18 16:54 01/15/18 20:39 01/16/18 07:32 Glucose (Fingerstick) 83 mg/dL (70-99) 107 mg/dL (70-99) 133 mg/dL (70-99) 81 mg/dL (70-99) Microbiology 01/13/18 Blood Culture - Preliminary, Resulted NO GROWTH AFTER 3 DAYS 01/12/18 Urine Culture - Final, Complete 01/12/18 Urine Culture Result 1 (TUAN) - Final, Complete Medications Current Medications Amlodipine Besylate (Norvasc) 5 mg DAILY PO Last administered on 01/15/18at 11: 45; Start 01/13/18 at 10:30 Aspirin (Children'S Aspirin) 162 mg DAILY PO Last administered on 01/15/18at 11: 39; Start 01/13/18 at 10:30 Atorvastatin Calcium (Lipitor) 20 mg HS PO Last administered on 01/15/18 21:01 ; Start 01/13/18 at 21:00 Colestipol HCl (Colestid) 1 gm BID PO Last administered on 01/15/18 21:01; Start 01/13/18 at 21:00 Docusate Sodium (Colace) 100 mg BID PO Last administered on 01/14/18 19:52; Start 01/13/18 at 10:30 Flecainide Acetate (Tambocor) 50 mg BID PO Last administered on 01/15/18 21:01 ; Start 01/13/18 at 10:30 Folic Acid (Folic Acid) 1 mg DAILY PO Last administered on 01/15/18 11:37; Start 01/13/18 at 10:30 Furosemide (Lasix) 40 mg BID92 PO Last administered on 01/15/18 16:41; Start 01/13/18 at 10:30 Acetaminophen/ Hydrocodone Bitart (Lortab 7.5/325) 1 tab PRN Q6HRS PRN PO MODERATE-SEVERE PAIN Last administered on 01/15/18 07:40; Start 01/13/18 at 10: 00 Levothyroxine Sodium (Synthroid) 75 mcg DAILY07 PO Last administered on 11:38; Start 01/13/18 at 10:30 Metoprolol Succinate (Toprol Xl) 100 mg DAILY PO Last administered on 11:41; Start 01/13/18 at 10:30 Potassium Chloride (Klor-Con) 10 meq DAILY PO Last administered on 01/15/18 11 :39; Start 01/13/18 at 10:30 Prednisone (Prednisone) 10 mg DAILY PO Last administered on 01/15/18 11:44; Start 01/13/18 at 10:30 Gabapentin (Neurontin) 100 mg TID PO Last administered on 01/15/18 21:01; Start 01/13/18 at 14:00 Hydroxychloroquine Sulfate (Plaquenil) 200 mg BID PO Last administered on 21:01; Start 01/13/18 at 10:30 Lactobacillus Rhamnosus (Culturelle) 1 cap DAILY PO Last administered on 11:37; Start 01/13/18 at 10:30 Pantoprazole Sodium (Protonix) 40 mg DAILYAC PO Last administered on 01/15/18at 11:35; Start 01/13/18 at 10:30 Acetaminophen (Tylenol) 650 mg PRN Q6HRS PRN PO MILD PAIN / TEMP; Start at 10:00 Ceftriaxone Sodium 1 gm/ Dextrose 50 ml @ 100 mls/hr Q24H IV ; Start 01/13/18 at 12:00; Status UNV Ceftriaxone Sodium (Rocephin) 1 gm Q24H IVP Last administered on 01/13/18at 13:44 ; Start 01/13/18 at 13:00; Stop 01/14/18 at 12:36; Status DC Piperacillin Sod/ Tazobactam Sod (Zosyn Per Pharmacy) 1 each PRN DAILY PRN [facility] SEE COMMENTS; Start 01/14/18 at 12:45 Piperacillin Sod/ Tazobactam Sod 2.25 gm/Sodium Chloride 50 ml @ 100 mls/hr Q8HRS IV Last administered on 01/16/18at 05:43; Start 01/14/18 at 14:00 Active Scripts Active Reported Amlodipine Besylate 5 Mg Tablet 5 Mg PO DAILY Miralax (Polyethylene Glycol 3350) 17 Gm Powd.pack 1 Packet PO DAILY PRN Docusate Sodium 100 Mg Capsule 1 Cap PO BID Hydrocodone-Apap 7.5-325 (Hydrocodone Bit/Acetaminophen) 1 Each Tablet 1 Tab PO PRN Q6HRS PRN Aspirin 81 Mg Tab.chew 2 Tab PO DAILY Omeprazole 40 Mg Capsule.dr 40 Mg PO DAILY07 Gabapentin 100 Mg Capsule 100 Mg PO TID Colestid (Colestipol Hcl) 1 Gm Tablet 1 Gm PO BID Klor-Con 10 (Potassium Chloride) 10 Meq Tablet.er 10 Mg PO DAILY Acidophilus (Lactobacillus Acidophilus) 1 Each Tablet 1 Each PO DAILY Flecainide Acetate 50 Mg Tablet 50 Mg PO BID Furosemide 40 Mg Tablet 40 Mg PO BID92 Prednisone 5 Mg Tablet 10 Mg PO DAILY Metoprolol Succinate ( Xl ) (Metoprolol Succinate) 100 Mg Tab.er.24h 100 Mg PO DAILY Atorvastatin Calcium 20 Mg Tablet 20 Mg PO HS Hydroxychloroquine Sulfate 200 Mg Tablet 1 Tab PO BID Folic Acid 1 Mg Tablet 1 Mg PO DAILY Meclizine Hcl 25 Mg Tablet 25 Mg PO TID Levothyroxine Sodium 75 Mcg Tablet 75 Mcg PO DAILY Vitals/I & O Vital Sign - Last 24 Hours 01/15/18 01/15/18 01/15/18 01/15/18 11:41 11:42 11:45 15:00 Temp 98.1 98.1 Pulse 56 Resp 18 B/P (MAP) 130/79 130/79 130/79 109/91 (97) Pulse Ox 96 O2 Delivery Nasal Cannula O2 Flow Rate 3.0 01/15/18 01/15/18 01/15/18 01/15/18 19:24 20:12 21:01 23:36 Temp 98.0 98.4 98.0 98.4 Pulse 61 61 58 Resp 16 20 B/P (MAP) 121/57 (78) 121/57 116/51 (72) Pulse Ox 94 98 O2 Delivery Nasal Cannula Nasal Cannula Nasal Cannula O2 Flow Rate 3.0 3.0 3.0 01/16/18 01/16/18 03:50 07:00 Temp 97.7 97.8 97.7 97.8 Pulse 55 59 Resp 20 18 B/P (MAP) 127/61 (83) 134/53 (80) Pulse Ox 98 95 O2 Delivery Nasal Cannula Nasal Cannula O2 Flow Rate 3.0 3.0 Intake and Output 01/15/18 01/15/18 01/16/18 15:00 23:00 07:00 Intake Total 800 ml 600 ml Output Total 1150 ml 1900 ml Balance -350 ml -1300 ml REGI VALDEZ MD Jan 16, 2018 08:58
[2018-01-16] MEDS ORDERED: ASCORBIC ACID 500 MG TABLET PO SCH (09:00)
[2018-01-16] MEDS: DOCUSATE SODIUM 100 MG CAPSULE. PO SCH (09:00)
[2018-01-16] MEDS: METOPROLOL SUCC 24HR ER 100 MG TAB.ER.24H. PO SCH (09:38)
[2018-01-16] MEDS: LACTOBACILLUS RHAMNOSUS GG 1 CAPSULE. PO SCH (09:38)
[2018-01-16] MEDS: ASPIRIN CHEWABLE 81 MG TABLET. PO SCH (09:38)
[2018-01-16] MEDS: FOLIC ACID 1 MG TABLET. PO SCH (09:38)
[2018-01-16] MEDS: POTASSIUM CHLORIDE 10 MEQ TABLET.ER. PO SCH (09:39)
[2018-01-16] MEDS: COLESTIPOL HCL 1 GM TABLET PO SCH (09:39)
[2018-01-16] MEDS: amLODIPine BESYLATE 5 MG TABLET PO SCH (09:40)
[2018-01-16] MEDS: predniSONE 10 MG TABLET PO SCH (09:40)
[2018-01-16] MEDS: FLECAINIDE ACETATE 50 MG TABLET. PO SCH (09:40)
[2018-01-16] MEDS: GABAPENTIN 100 MG CAPSULE. PO SCH ×2 (09:40→14:12)
[2018-01-16] MEDS: FUROSEMIDE 40 MG TABLET. PO SCH ×2 (09:40→14:12)
[2018-01-16] MEDS: HYDROXYCHLOROQUINE 200 MG TABLET PO SCH (09:40)
--- NOTE | 2018-01-16 10:38 | PDOC ---
PROGRESS NOTES Subjective Subjective feels better ready to go home Objective Objective Vital Signs Date Time Temp Pulse Resp B/P (MAP) Pulse Ox O2 Delivery O2 Flow Rate FiO2 01/16/18 09:40 59 134/53 01/16/18 07:00 97.8 18 95 Nasal Cannula 3.0 97.8 Intake and Output 01/16/18 07:00 Intake Total 1400 ml Output Total 3050 ml Balance -1650 ml Intake Oral 1400 ml Output Urine Total 3050 ml # Bowel Movements 1 Physical Exam Abdomen: Normal bowel sounds, Soft Heart: Regular rate, Normal S1, Normal S2 Extremities: No clubbing General: Alert HEENT: Atraumatic Lungs: Clear to auscultation MUSCULOSKELETAL: No swelling, Other Neck: Supple Neuro: Normal speech Psych/Mental Status: Mood NL Skin: No significant lesion COMMENT harischronic bladder retention Diagnosis Problem List Problems Medical Problems: (1) Generalized weakness Status: Acute (2) Total self-care deficit Status: Acute Assessment Assessment 1. Acute bronchitis, viral, improving. 2. Diarrhea, etiology not clear. 3. Recurrent urinary tract infections. The patient has also history of hematuria and had cystoscopy 2-1/2 weeks ago. 4. Leukocytosis, improving, etiology not clear. The patient is also on prednisone. 5. Gram variable rods bacteremia, etiology not clear. 6. Weakness. 7. Chronic obstructive pulmonary disease. 8. Hypertension. 9. Coronary artery disease. 10. History of rheumatoid arthritis. 11. History of recurrent falls. 12. Osteoarthritis. 13. Lack of social support. PLAN: d/c home today with home health blood c/s bacilus, contamination. wbc 10. cr 2.5 stable reanl failure stage 4. augmentinx7 days hospital bed home health. haris for bladder retention. I will consult Dr. Hollis to see if she needs any antibiotics. Clinically, she seems to be stable other than being weak and not having anyone to help her at home. We will follow up on the blood cultures to see if we need to put her on any antibiotics because of her history of recurrent UTI, abnormal UA as well as a leukocytosis and abnormal blood culture. Consultation has been obtained with Dr. Jenkins for rehab evaluation and management and Dr. Hollis for Infectious Disease evaluation and management. I will recheck labs tomorrow. Clinically, the patient appears to be stable at this time. For details, please refer to the orders. Clinically improving. Await blood cultures report on sensitivity and identification of gram variable rods. Continue IV Rocephin. Await infectious disease consultation and evaluation and management. Plan Plan of Care Problems Medical Problems: (1) Generalized weakness Status: Acute (2) Total self-care deficit Status: Acute Comment Review of Relevant I have reviewed the following items amador (where applicable) has been applied. Labs Laboratory Tests Test 01/15/18 11:54 01/15/18 16:54 01/15/18 20:39 01/16/18 07:32 Glucose (Fingerstick) 83 mg/dL (70-99) 107 mg/dL (70-99) 133 mg/dL (70-99) 81 mg/dL (70-99) Microbiology 01/13/18 Blood Culture - Preliminary, Resulted NO GROWTH AFTER 3 DAYS 01/12/18 Urine Culture - Final, Complete 01/12/18 Urine Culture Result 1 (TUAN) - Final, Complete Medications Current Medications Ascorbic Acid (Vitamin C) 500 mg BID PO Last administered on 01/16/18at 09:39; Start 01/16/18 at 09:00 Vitals/I & O Vital Sign - Last 24 Hours 01/15/18 01/15/18 01/15/18 01/15/18 11:41 11:42 11:45 15:00 Temp 98.1 98.1 Pulse 56 Resp 18 B/P (MAP) 130/79 130/79 130/79 109/91 (97) Pulse Ox 96 O2 Delivery Nasal Cannula O2 Flow Rate 3.0 01/15/18 01/15/18 01/15/18 01/15/18 19:24 20:12 21:01 23:36 Temp 98.0 98.4 98.0 98.4 Pulse 61 61 58 Resp 16 20 B/P (MAP) 121/57 (78) 121/57 116/51 (72) Pulse Ox 94 98 O2 Delivery Nasal Cannula Nasal Cannula Nasal Cannula O2 Flow Rate 3.0 3.0 3.0 01/16/18 01/16/18 01/16/18 01/16/18 03:50 07:00 09:38 09:40 Temp 97.7 97.8 97.7 97.8 Pulse 55 59 59 59 Resp 20 18 B/P (MAP) 127/61 (83) 134/53 (80) 134/53 134/53 Pulse Ox 98 95 O2 Delivery Nasal Cannula Nasal Cannula O2 Flow Rate 3.0 3.0 01/16/18 09:40 Pulse 59 B/P (MAP) 134/53 Intake and Output 01/15/18 01/15/18 01/16/18 15:00 23:00 07:00 Intake Total 800 ml 600 ml Output Total 1150 ml 1900 ml Balance -350 ml -1300 ml NICOLLE WHITE MD Jan 16, 2018 10:38
[2018-01-16 11:00] VITALS: BP 121/53
--- NOTE | 2018-01-16 13:22 | PDOC ---
Infectious Disease Note Subjective Subjective Ready to go home Wants Dowd left in. Small bout of diarrhea earlier, "normal for me." No N/V/cramps/F/C/S ROS ROS ROS per HPI otherwise neg Vital Sign Vital Signs Vital Signs Date Time Temp Pulse Resp B/P (MAP) Pulse Ox O2 Delivery O2 Flow Rate FiO2 01/16/18 11:00 97.9 54 18 121/53 (75) 98 Nasal Cannula 3.0 97.9 Physical Exam PHYSICAL EXAM GENERAL: Sitting in the chair, smiling HEENT: Oral mucosa is pink and moist. NECK: Supple. LUNGS: Clear to auscultation. HEART: S1, S2. ABDOMEN: Bowel sounds active. Soft, nontender. GENITOURINARY: Dowd in place (01/13/2018). EXTREMITIES: No gross edema or cyanosis. SKIN: Warm, without rash. NEUROLOGIC: Alert and oriented x 3. Labs Lab Laboratory Tests Test 01/15/18 16:54 01/15/18 20:39 01/16/18 07:32 Glucose (Fingerstick) 107 mg/dL (70-99) 133 mg/dL (70-99) 81 mg/dL (70-99) Micro 01/12. BLD CULT RESULT 1 Preliminary Comment Bacillus species, not Bacillus anthracis Objective Assessment Sepsis with gram variable rods bacteremia (2 of 3 bottles) from 01/12. bacillus, contamination AECOPD, O2 dependent on 3L Leukocytosis - improved, on steroids. resolved Cephalexin allergy - hives. Tolerating Rocephin w/o problems. Urinary incontinence s/p Dowd placement 01/13. UC neg LAURYN on CKD Diarrhea on admission, resolved. Plan Plan of Shelter with Augmentin, Rx written d/c Dowd. Patient wants to keep it. Risk of infection discussed Supportive care D/w RN Attending Co-Sign The patient was seen and interviewed as well as examined at the bedside. The chart was reviewed. The case was discussed. Agree with the plan of care. SHIRLEY BELCHER APRN Jan 16, 2018 13:22 ROSALINDA ROGERS MD Jan 16, 2018 13:23
== END 2018-01-16 15:20 | disposition home health service (06) | DRG 871 ==
LOC: ER 16:18 → 6 SOUTH 19:57
PROVIDERS: ADMIT Internal Medicine; ATTEND Internal Medicine
DX: A41.9 Sepsis, unspecified organism (principal); E43 Unspecified severe protein-calorie malnutrition; J44.0 Chronic obstructive pulmonary disease with (acute) lower respiratory infection; N17.9 Acute kidney failure, unspecified; J44.1 Chronic obstructive pulmonary disease with (acute) exacerbation; E11.42 Type 2 diabetes mellitus with diabetic polyneuropathy; E11.43 Type 2 diabetes mellitus with diabetic autonomic (poly)neuropathy; E11.22 Type 2 diabetes mellitus with diabetic chronic kidney disease; I48.91 Unspecified atrial fibrillation; K31.84 Gastroparesis; I25.10 Atherosclerotic heart disease of native coronary artery without angina pectoris; K21.9 Gastro-esophageal reflux disease without esophagitis; J20.9 Acute bronchitis, unspecified; E78.00 Pure hypercholesterolemia, unspecified; I25.2 Old myocardial infarction; E78.5 Hyperlipidemia, unspecified; M06.9 Rheumatoid arthritis, unspecified; M17.0 Bilateral primary osteoarthritis of knee; E03.9 Hypothyroidism, unspecified; G89.29 Other chronic pain; M54.5 Low back pain; M10.9 Gout, unspecified; R32 Unspecified urinary incontinence; I12.9 Hypertensive chronic kidney disease with stage 1 through stage 4 chronic kidney disease, or unspecified chronic kidney disease; N18.9 Chronic kidney disease, unspecified; M79.7 Fibromyalgia; Z96.612 Presence of left artificial shoulder joint; Z90.710 Acquired absence of both cervix and uterus; Z90.49 Acquired absence of other specified parts of digestive tract; Z99.81 Dependence on supplemental oxygen; Z88.5 Allergy status to narcotic agent; Z88.1 Allergy status to other antibiotic agents; Z91.040 Latex allergy status; Z87.440 Personal history of urinary (tract) infections; Z91.81 History of falling; Z82.49 Family history of ischemic heart disease and other diseases of the circulatory system; Z83.3 Family history of diabetes mellitus; Z80.9 Family history of malignant neoplasm, unspecified
CPT/HCPCS: 36415; 71045; 80048; 80053; 81001; 82550; 82553; 82962; 83605; 83735; 83880; 84484; 85007; 85025; 87040; 87086; 87205; 93005; J0696; J2543; J7512; 97530; 97535; 99285-25

== ENCOUNTER → 2018-07-11 | Outpatient (CLI) | payer OTHER ==
[2018-02-09 11:00] VITALS: BP 131/67
[~2018-07-11] MED LIST changes: +AMLO5TAB10 PO; -AMLO5TAB7 PO; +DOCU100C28 PO; -HYDR-2758 PO; +HYDR-2761 PO; +HYDR-2765 PO; +MIRA25TA PO; -OXYC-323 PO; +OXYC1TAB15 PO; +POLY17PO29 PO
[2018-07-11 15:27] LABS: BASO % 0 % (0-3); EOS # 0.4 x10^3/uL (0.0-0.7); EOS % 4 % (0-3); HEMATOCRIT 33.1 % (36.0-47.0); HEMOGLOBIN 10.8 g/dL (12.0-15.5); LYMPH # 1.4 x10^3/uL (1.0-4.8); LYMPH % 15 % (24-48); MEAN CORPUSCULAR HEMOGLOBIN 29 pg (25-35); MEAN CORPUSCULAR HGB CONC 33 g/dL (31-37); MEAN CORPUSCULAR VOLUME 90 fL (79-100); MONO # 0.7 x10^3/uL (0.0-1.1); MONO % 7 % (0-9); NEUT # 6.7 x10^3uL (1.8-7.7); NEUT % 73 % (31-73); PLATELET COUNT 296 x10^3/uL (140-400); RED BLOOD COUNT 3.68 x10^6/uL (3.50-5.40); RED CELL DISTRIBUTION WIDTH 15.5 % (11.5-14.5); WHITE BLOOD COUNT 9.2 x10^3/uL (4.0-11.0)
[2018-07-11 15:47] LABS: ALBUMIN/GLOBULIN RATIO 0.8 (1.0-1.7); CALCIUM 9.6 mg/dL (8.5-10.1); CREATININE 1.5 mg/dL (0.6-1.0); GFR 33.5; POTASSIUM 3.6 mmol/L (3.5-5.1); TOTAL BILIRUBIN 0.3 mg/dL (0.2-1.0)
[2018-07-11 15:50] LABS: CHOLESTEROL/HDL RATIO 2.6
[2018-07-12 21:14] LABS: CREAT RD UR 31.2 mg/dL (Not Estab.); MICRO CREAT RATIO 440.1 mg/g creat (0.0-30.0); MICROALB RD UR 137.3 ug/mL (Not Estab.)
[2018-07-12 23:15] LABS: HEMOGLOBIN A1C 5.4 % (4.8-5.6)
== END | disposition home or self-care (01) ==
LOC: LAB 14:59
PROVIDERS: ATTEND Internal Medicine
DX: E11.9 Type 2 diabetes mellitus without complications (principal)
CPT/HCPCS: 36415; 80053; 80061; 82043; 82570; 83036; 84443; 85025

== ENCOUNTER → 2019-04-30 | Outpatient (CLI) | payer OTHER, MEDICAID ==
[2018-02-09 11:00] VITALS: BP 131/67
[~2019-04-30] MED LIST changes: +OMEP40CA45 PO; -OMEP40CA5 PO; -PANT40TA5 PO; +PANT40TA77 PO
--- NOTE | 2019-04-30 11:09 | RAD ---
EXAM: Right lower extremity venous Doppler. HISTORY: Right lower extremity pain/swelling. COMPARISON: None. FINDINGS: Grayscale and Doppler analysis of the right lower extremity deep venous system was performed with graded compression and augmentation. The common femoral, greater saphenous, superficial femoral, popliteal and calf veins were assessed. There is no evidence of deep venous thrombosis. IMPRESSION: 1. No evidence of deep venous thrombosis. Electronically signed by: Xander Sepulveda MD (04/30/2019 11:06 AM) [facility]
== END | disposition home or self-care (01) ==
LOC: US 10:10
PROVIDERS: ATTEND Internal Medicine
DX: M79.661 Pain in right lower leg (principal); M79.89 Other specified soft tissue disorders
CPT/HCPCS: 93971

== ENCOUNTER 2019-08-14 18:38 | Emergency (ER) | payer OTHER, MEDICAID ==
[~2019-08-14] VITALS: Ht 149.9 cm; Wt 51.3 kg
[~2019-08-14 18:38] MED LIST changes: +MECL-75 PO; -MECL25TA3 PO
[2019-08-14 19:15] LABS: BASO # 0.1 x10^3/uL (0.0-0.2); BASO % 1 % (0-3); EOS # 0.1 x10^3/uL (0.0-0.7); EOS % 1 % (0-3); HEMOGLOBIN 9.5 g/dL (12.0-15.5); LYMPH # 0.9 x10^3/uL (1.0-4.8); LYMPH % 8 % (24-48); MEAN CORPUSCULAR HEMOGLOBIN 31 pg (25-35); MEAN CORPUSCULAR HGB CONC 33 g/dL (31-37); MEAN CORPUSCULAR VOLUME 95 fL (79-100); MONO # 0.9 x10^3/uL (0.0-1.1); MONO % 8 % (0-9); NEUT % 82 % (31-73); PLATELET COUNT 263 x10^3/uL (140-400); RED BLOOD COUNT 3.06 x10^6/uL (3.50-5.40); RED CELL DISTRIBUTION WIDTH 14.4 % (11.5-14.5); WHITE BLOOD COUNT 11.1 x10^3/uL (4.0-11.0)
[2019-08-14 19:26] LABS: CALCIUM 8.8 mg/dL (8.5-10.1); CREATININE 1.6 mg/dL (0.6-1.0); POTASSIUM 4.4 mmol/L (3.5-5.1)
[2019-08-14 19:32] LABS: ALBUMIN 2.6 g/dL (3.4-5.0); ALBUMIN/GLOBULIN RATIO 0.6 (1.0-1.7); C-REACTIVE PROTEIN 12.4 mg/L (0-3.3); TOTAL BILIRUBIN 0.4 mg/dL (0.2-1.0); TOTAL PROTEIN 6.7 g/dL (6.4-8.2)
[2019-08-14 19:36] LABS: INFLUENZA A PATIENT NEGATIVE (NEGATIVE); INFLUENZA B PATIENT NEGATIVE (NEGATIVE)
--- NOTE | 2019-08-14 19:40 | RAD ---
ANKLE LEFT 3V 08/14/2019 7:19 PM INDICATION: Trauma COMPARISON: None available. TECHNIQUE: 3 views of the left ankle are provided. FINDINGS/ IMPRESSION: 1. Images are not labeled, however presumed to represent the left ankle due to order. 2. There is global soft tissue swelling involving the left ankle. There is a mildly displaced posterior tibial fracture with intra-articular extension. Lateral malleolus appears intact. 3. Advanced joint space narrowing involving the tibiotalar joint with flattening of the talar dome and subcortical sclerosis. There is disruption of ankle mortise. Electronically signed by: Nayely Brantley MD (08/14/2019 7:37 PM) [facility]
[2019-08-14] MEDS ORDERED: FUROSEMIDE 40 MG/4 ML VIAL. IVP ONE (19:45)
--- NOTE | 2019-08-14 19:47 | RAD ---
CHEST AP ONLY 08/14/2019 7:19 PM INDICATION: Trauma COMPARISON: 02/09/2018 TECHNIQUE: Portable frontal view of the chest is provided. FINDINGS: The cardiomediastinal silhouette is enlarged, with increased size compared to the prior examination. Amplatzer plug is identified. Lungs are clear with exception of pulmonary emphysematous changes. Bilateral hilar prominence appears stable. There are no significant pleural effusions. There is no pulmonary vascular congestion. No pneumothorax. Left shoulder arthroplasty is visualized. Chronic deformity of the right glenohumeral joint is noted with likely chronic rotator cuff arthropathy. IMPRESSION: Increased cardiomegaly which may be secondary to cardiomyopathy versus pericardial effusion. Electronically signed by: Nayely Brantley MD (08/14/2019 7:44 PM) EF[facility]IN
[2019-08-14 20:27] LABS: BILIRUBIN,URINE NEGATIVE (NEG); CLARITY,URINE CLEAR; COLOR,URINE YELLOW; NITRITE,URINE NEGATIVE (NEG); PROTEIN,URINE NEGATIVE (NEG-TRACE); UROBILINOGEN,URINE 0.2 mg/dL (0.2 mg/dL)
[2019-08-14 20:33] LABS: SQUAMOUS EPITHELIAL CELL,UR FEW /LPF
[2019-08-14 20:34] LABS: BACTERIA,URINE 0 /HPF (0-FEW); RBC,URINE OCC /HPF (0-2); WBC,URINE OCC /HPF (0-4)
[2019-08-14] MEDS ORDERED: FURO-69 PO (21:19)
--- NOTE | 2019-08-14 21:19 | PHYS DOC ---
Past Medical History Past Medical History: A-Fib, Arthritis, CAD, COPD, Diabetes-Type II, GERD, High Cholesterol, Hypertension, Hypothyroid, CT, UTI Additional Past Medical Histor: esophagitis, hemorrhoids, hyperlipidemia, hiatal hernia, gastroparesis, RA Past Surgical History: Appendectomy, Hysterectomy, Tonsillectomy Additional Past Surgical Histo: cardiac cath, L ROTATOR CUFF Smoking Status: Never Smoker Alcohol Use: None Drug Use: None General Adult EDM: Chief Complaint: MECHANICAL FALL HPI: HPI: Patient is a 79 year old female who presents with left ankle pain after falling at home. Patient also reports increased bilateral lower extremity swelling. Patient reported to have a fever of 101.8. Patient denies cough, sore throat, but does report increased shortness of breath. No chest pain. No nausea vomiting, sweats, abdominal pain or diarrhea. Patient has not had recent antibiotics despite report of prior cellulitis. No rash. No other acute symptoms or complaints. [] Review of Systems: Review of Systems: ROS as per HPI Heart Score: Risk Factors: Risk Factors: DM, Current or recent (<one month) smoker, HTN, HLP, family history of CAD, obesity. Risk Scores: Score 0 - 3: 2.5% MACE over next 6 weeks - Discharge Home Score 4 - 6: 20.3% MACE over next 6 weeks - Admit for Clinical Observation Score 7 - 10: 72.7% MACE over next 6 weeks - Early Invasive Strategies Current Medications: Current Medications Medications (Trade) Dose Ordered Sig/Jana Start Time Stop Time Status Last Admin Dose Admin Furosemide (Lasix) 40 mg 1X ONCE 08/14/19 19:45 08/14/19 19:48 DC 08/14/19 19:45 40 MG Allergies: Allergies: Allergies Coded Allergies Type Severity Reaction Last Updated Verified Cephalexin Monohydrate Allergy Intermediate Hives 01/14/18 Yes codeine Allergy Intermediate 02/07/18 Yes latex Allergy Intermediate 05/12/14 Yes Physical Exam: PE: Constitutional: Well developed, well nourished, no acute distress, non-toxic appearance. [] HENT: Normocephalic, atraumatic, bilateral external ears normal, oropharynx moist,nose normal. [] Eyes: PERRLA, EOMI, conjunctiva normal. [] Neck: Normal range of motion, no tenderness. [] Cardiovascular:Heart rate regular rhythm, bipedal edema[] Lungs & Thorax: Bilateral breath sounds clear. [] Abdomen: Bowel sounds normal, soft, no tenderness. [] Skin: Warm, dry. [] Back: No tenderness. [] Extremities: No tenderness,no edema. [] Neurologic: Alert and oriented X 3, normal motor function, normal sensory function, no focal deficits noted. [] Psychologic: Affect normal, judgement normal, mood normal. [] Current Patient Data: Labs: Laboratory Tests Test 08/14/19 19:00 08/14/19 20:18 White Blood Count 11.1 x10^3/uL (4.0-11.0) H Red Blood Count 3.06 x10^6/uL (3.50-5.40) L Hemoglobin 9.5 g/dL (12.0-15.5) L Hematocrit 29.0 % (36.0-47.0) L Mean Corpuscular Volume 95 fL (79-100) Mean Corpuscular Hemoglobin 31 pg (25-35) Mean Corpuscular Hemoglobin Concent 33 g/dL (31-37) Red Cell Distribution Width 14.4 % (11.5-14.5) Platelet Count 263 x10^3/uL (140-400) Neutrophils (%) (Auto) 82 % (31-73) H Lymphocytes (%) (Auto) 8 % (24-48) L Monocytes (%) (Auto) 8 % (0-9) Eosinophils (%) (Auto) 1 % (0-3) Basophils (%) (Auto) 1 % (0-3) Neutrophils # (Auto) 9.0 x10^3/uL (1.8-7.7) H Lymphocytes # (Auto) 0.9 x10^3/uL (1.0-4.8) L Monocytes # (Auto) 0.9 x10^3/uL (0.0-1.1) Eosinophils # (Auto) 0.1 x10^3/uL (0.0-0.7) Basophils # (Auto) 0.1 x10^3/uL (0.0-0.2) Sodium Level 135 mmol/L (136-145) L Potassium Level 4.4 mmol/L (3.5-5.1) Chloride Level 100 mmol/L (98-107) Carbon Dioxide Level 31 mmol/L (21-32) Anion Gap 4 (6-14) L Blood Urea Nitrogen 21 mg/dL (7-20) H Creatinine 1.6 mg/dL (0.6-1.0) H Estimated GFR (Cockcroft-Gault) 31.0 BUN/Creatinine Ratio 13 (6-20) Glucose Level 88 mg/dL (70-99) Calcium Level 8.8 mg/dL (8.5-10.1) Total Bilirubin 0.4 mg/dL (0.2-1.0) Aspartate Amino Transferase (AST) 24 U/L (15-37) Alanine Aminotransferase (ALT) 25 U/L (14-59) Alkaline Phosphatase 89 U/L (46-116) C-Reactive Protein, Quantitative 12.4 mg/L (0-3.3) H KR-Hnp-[id number]-Type Natriuretic Peptide 03483 pg/mL (0-449) H Total Protein 6.7 g/dL (6.4-8.2) Albumin 2.6 g/dL (3.4-5.0) L Albumin/Globulin Ratio 0.6 (1.0-1.7) L Influenza Type A Antigen Negative (NEGATIVE) Influenza Type B Antigen Negative (NEGATIVE) Urine Collection Type Unknown Urine Color Yellow Urine Clarity Clear Urine pH 6.0 (<5.0-8.0) Urine Specific [place] <=1.005 (1.000-1.030) Urine Protein Negative mg/dL (NEG-TRACE) Urine Glucose (UA) Negative mg/dL (NEG) Urine Ketones (Stick) Negative mg/dL (NEG) Urine Blood Negative (NEG) Urine Nitrite Negative (NEG) Urine Bilirubin Negative (NEG) Urine Urobilinogen Dipstick 0.2 mg/dL (0.2 mg/dL) Urine Leukocyte Esterase Negative (NEG) Urine RBC Occ /HPF (0-2) Urine WBC Occ /HPF (0-4) Urine Squamous Epithelial Cells Few /LPF Urine Bacteria 0 /HPF (0-FEW) Urine Mucus Mod /LPF Laboratory Tests 08/14/19 19:00 Laboratory Tests 08/14/19 19:00 Vital Signs: Vital Signs Date Time Temp Pulse Resp B/P (MAP) Pulse Ox O2 Delivery O2 Flow Rate FiO2 08/14/19 19:38 99.8 65 18 147/67 (93) 97 Room Air 99.8 EKG: EKG: [EKG: ] Radiology/Procedures: Radiology/Procedures: [CHEST: PVC] Course & Med Decision Making: Course & Med Decision Making Pertinent Labs and Imaging studies reviewed. (See chart for details) [Patient with acute volume overload with findings of congestive heart failure chest x-ray. IV Lasix given. Patient is currently off diuretic therapy. Hospital admission for further evaluation and treatment. Patient declines hospital admission this time and request discharge home. Patient will be discharged home on Lasix with instructions to follow-up with PCP. Return precautions reviewed. Patient verbalizes understanding agreement discharge instructions prior to discharge.] Dragon Disclaimer: DragBARRX Medical Disclaimer: This electronic medical record was generated, in whole or in part, using a voice recognition dictation system. Departure Departure Impression: Primary Impression: CHF exacerbation Additional Impression: Contusion of ankle or foot, left Disposition: 01 HOME, SELF-CARE Condition: STABLE Referrals: NICOLLE WHITE MD (PCP) Patient Instructions: Contusion, [id number] Additional Instructions: Please go home and rest. Take newly prescribed medications as directed. Follow up with your PCP in 2-3 days. Return to the ED if new or worsening symptoms. Scripts Furosemide (LASIX) 20 Mg Tablet 1 TAB PO DAILY for 10 Days, #10 TAB 0 Refills Prov: JACKIE AVINA DO 08/14/19 AJCKIE AVINA DO Aug 14, 2019 21:19
[2019-08-14 21:30] VITALS: BP 140/68
== END 2019-08-14 22:01 | disposition home or self-care (01) ==
LOC: ER 18:38
DX: S90.02XA Contusion of left ankle, initial encounter (principal); I13.0 Hypertensive heart and chronic kidney disease with heart failure and stage 1 through stage 4 chronic kidney disease, or unspecified chronic kidney disease; R50.9 Fever, unspecified; R60.0 Localized edema; I50.9 Heart failure, unspecified; I48.20 Chronic atrial fibrillation, unspecified; M19.90 Unspecified osteoarthritis, unspecified site; I11.0 Hypertensive heart disease with heart failure; E11.9 Type 2 diabetes mellitus without complications; E03.9 Hypothyroidism, unspecified; J44.9 Chronic obstructive pulmonary disease, unspecified; E78.00 Pure hypercholesterolemia, unspecified; I25.2 Old myocardial infarction; Z88.1 Allergy status to other antibiotic agents; Z91.040 Latex allergy status; Z88.5 Allergy status to narcotic agent; Z90.89 Acquired absence of other organs; Z90.710 Acquired absence of both cervix and uterus; W19.XXXA Unspecified fall, initial encounter; Y93.89 Activity, other specified; Y92.89 Other specified places as the place of occurrence of the external cause; Y99.8 Other external cause status
CPT/HCPCS: 36415; 71045; 73610; 80053; 81001; 83880; 85025; 86140; 87040; 87804; 96374; 99284; J1940; P9612

== ENCOUNTER 2019-11-13 16:57 | Emergency (ER) | payer OTHER, MEDICAID ==
[~2019-11-13] VITALS: Ht 149.9 cm; Wt 50.0 kg
[~2019-11-13 16:57] MED LIST changes: -ASPI-612 PO; +ASPI-886 PO; +FURO-69 PO; +WARF2.5T2 PO; -WARF2.5T83 PO
--- NOTE | 2019-11-13 18:31 | PHYS DOC ---
Past Medical History Past Medical History: A-Fib, Arthritis, CAD, COPD, Diabetes-Type II, GERD, High Cholesterol, Hypertension, Hypothyroid, ID, UTI Additional Past Medical Histor: esophagitis, hemorrhoids, hyperlipidemia, hiatal hernia, gastroparesis, RA Past Surgical History: Appendectomy, Hysterectomy, Tonsillectomy Additional Past Surgical Histo: cardiac cath, L ROTATOR CUFF Smoking Status: Never Smoker Alcohol Use: None Drug Use: None General Adult EDM: Chief Complaint: RIB PAIN HPI: HPI: Patient is a 79 year old female present with the chief complaint of left sided rib pain. Pain is located left lateral ribs 4-5-6. Patient states she woke up with pain. She denies any injuries. Pain has been ongoing x 4 days. Patient denies chest pain or shortness of breath. Pain is reproducible to palpation. Pain with range of motion. Review of Systems: Review of Systems: Constitutional: Denies fever or chills. [] Eyes: Denies change in visual acuity. [] HENT: Denies nasal congestion or sore throat. [] Respiratory: Denies cough or shortness of breath. [] Cardiovascular: Denies chest pain or edema. [] GI: Denies abdominal pain, nausea, vomiting, bloody stools or diarrhea. [] : Denies dysuria. [] Musculoskeletal: Denies back pain or joint pain. [Positive left-sided rib pain] Integument: Denies rash. [] Neurologic: Denies headache, focal weakness or sensory changes. [] Endocrine: Denies polyuria or polydipsia. [] Lymphatic: Denies swollen glands. [] Psychiatric: Denies depression or anxiety. [] Heart Score: Risk Factors: Risk Factors: DM, Current or recent (<one month) smoker, HTN, HLP, family history of CAD, obesity. Risk Scores: Score 0 - 3: 2.5% MACE over next 6 weeks - Discharge Home Score 4 - 6: 20.3% MACE over next 6 weeks - Admit for Clinical Observation Score 7 - 10: 72.7% MACE over next 6 weeks - Early Invasive Strategies Allergies: Allergies: Allergies Coded Allergies Type Severity Reaction Last Updated Verified Cephalexin Monohydrate Allergy Intermediate Hives 01/14/18 Yes codeine Allergy Intermediate 02/07/18 Yes latex Allergy Intermediate 05/12/14 Yes Physical Exam: PE: Constitutional: Well developed, well nourished, no acute distress, non-toxic appearance. [] HENT: Normocephalic, atraumatic, bilateral external ears normal, oropharynx moist, no oral exudates, nose normal. [] Eyes: EOMI, conjunctiva normal, no discharge. [] Neck: Normal range of motion, no tenderness, supple, no stridor. [] Cardiovascular:Heart rate regular rhythm, [left chest wall tender to palpation at the level of 4 5 and 6 at the rib angles. No crepitus no deformity] Lungs & Thorax: No respiratory distress lungs clear bilateral Abdomen: Bowel sounds normal, soft, no tenderness, no masses, ] Skin: Warm, dry, no erythema, no rash. [] Back: No tenderness, no CVA tenderness. [] Extremities: No tenderness, no cyanosis, no clubbing, ROM intact, no edema. [] Neurologic: Alert and oriented X 3, normal motor function, normal sensory function, no focal deficits noted. [] Psychologic: Affect normal, judgement normal, mood normal. [] Current Patient Data: Vital Signs: Vital Signs Date Time Temp Pulse Resp B/P (MAP) Pulse Ox O2 Delivery O2 Flow Rate FiO2 11/13/19 17:00 97.7 72 16 133/76 (95) 95 Room Air 97.7 EKG: EKG: [] Radiology/Procedures: Radiology/Procedures: [] Impression: INDICATION: Left rib pain. COMPARISON: CT abdomen/pelvis 11/02/2017 TECHNIQUE: Helical CT imaging of the chest performed without the use of intravenous contrast. Sagittal and coronal reformats were obtained. One or more of the following individualized dose reduction techniques were utilized for this examination: 1. Automated exposure control 2. Adjustment of the mA and/or kV according to patient size 3. Use of iterative reconstruction technique. FINDINGS: Vasculature: Multifocal calcific atherosclerosis to include coronary artery involvement. No aneurysmal dilatation. Left atrial appendage closure device. Aortic and mitral annular mineralization. The heart is prominent in size. Mediastinum/idalmis: No lymphadenopathy or pericardial effusion. Lungs: No localized infiltrate or suspicious pulmonary nodule. Metallic density at the lateral aspect of the right upper lung, image 8 series 7. Neck/axilla/chest wall: Multifocal muscular atrophy. No axillary adenopathy. Bones: Marked end-stage arthrosis at the right shoulder. Reverse shoulder arthroplasty on the left. No acute rib fractures seen bilaterally. The radiographic findings appear to have been artifactual. Multifocal degenerative changes throughout the imaged spine with varying degrees of discogenic arthrosis and facet degeneration. No acute or aggressive osseous process. Upper abdomen: Gastric diverticulum off the posterior aspect of the fundus. IMPRESSION: 1. No acute rib fracture. The radiographic findings on the left appear to have been artifactual. No cause for the patient's chest wall pain is identified. 2. Chronic findings as detailed in the body the report. Course & Med Decision Making: Course & Med Decision Making Pertinent Labs and Imaging studies reviewed. (See chart for details) [] Was evaluated for chief complaint. Work-up consisted of radiologic imaging. Radiologist impression abnormality seen on the posterior lateral aspects of ribs [address] chest performed no acute abnormality of ribs suspected artifact. Patient's exam consistent with the musculoskeletal pain. Patient be discharged home on pain medication Ultram. Cate Disclaimer: Dragmargarito Disclaimer: This electronic medical record was generated, in whole or in part, using a voice recognition dictation system. Departure Departure Impression: Primary Impression: Rib pain on left side Additional Impression: Musculoskeletal chest pain Disposition: HOME, SELF-CARE Condition: STABLE Referrals: NICOLLE WHITE MD (PCP) Patient Instructions: Musculoskeletal Pain Scripts Tramadol Hcl (TRAMADOL HCL) 50 Mg Tablet 50 MG PO Q6HRS PRN for PAIN, #20 TAB Prov: SHANTA PEREZ I DO 11/13/19 Justicifation of Admission Dx: Justifications for Admission: Justification of Admission Dx: N/A SHANTA PEREZ I DO Nov 13, 2019 18:31
[2019-11-13 19:19] VITALS: BP 158/92
--- NOTE | 2019-11-13 19:30 | RAD ---
Study: CR RIBS LEFT AND PA CHEST Indication: Left-sided rib pain. Comparison: Chest x-ray 08/14/2019 Findings: Slight undulation along the posterolateral sixth and seventh ribs but not definitively acute. No displaced rib fracture is identified. No pneumothorax. No pneumothorax, lobar consolidation or layering effusion. Left reverse shoulder arthroplasty and a surgical device likely within the left atrial appendage. Unchanged prominence of the cardiomediastinal silhouette and there is redemonstrated soft tissue prominence along the right of the trachea at the thoracic apex. End-stage right shoulder arthrosis. Incompletely assessed degenerative changes scattered throughout the visualized spine. Vascular calcifications. Impression: 1. Faint cortical undulation along the posterolateral left sixth and seventh ribs but not definitively acute as there is no cortical displacement. No pneumothorax. 2. No newly seen abnormality of the chest with several chronic findings as detailed above. Electronically signed by: GIGI EGAN MD (11/13/2019 7:27 PM) [id number]
--- NOTE | 2019-11-13 20:32 | RAD ---
STUDY: CT chest without contrast INDICATION: Left rib pain. COMPARISON: CT abdomen/pelvis 11/02/2017 TECHNIQUE: Helical CT imaging of the chest performed without the use of intravenous contrast. Sagittal and coronal reformats were obtained. One or more of the following individualized dose reduction techniques were utilized for this examination: 1. Automated exposure control 2. Adjustment of the mA and/or kV according to patient size 3. Use of iterative reconstruction technique. FINDINGS: Vasculature: Multifocal calcific atherosclerosis to include coronary artery involvement. No aneurysmal dilatation. Left atrial appendage closure device. Aortic and mitral annular mineralization. The heart is prominent in size. Mediastinum/idalmis: No lymphadenopathy or pericardial effusion. Lungs: No localized infiltrate or suspicious pulmonary nodule. Metallic density at the lateral aspect of the right upper lung, image 8 series 7. Neck/axilla/chest wall: Multifocal muscular atrophy. No axillary adenopathy. Bones: Marked end-stage arthrosis at the right shoulder. Reverse shoulder arthroplasty on the left. No acute rib fractures seen bilaterally. The radiographic findings appear to have been artifactual. Multifocal degenerative changes throughout the imaged spine with varying degrees of discogenic arthrosis and facet degeneration. No acute or aggressive osseous process. Upper abdomen: Gastric diverticulum off the posterior aspect of the fundus. IMPRESSION: 1. No acute rib fracture. The radiographic findings on the left appear to have been artifactual. No cause for the patient's chest wall pain is identified. 2. Chronic findings as detailed in the body the report. Electronically signed by: GIGI EGAN MD (11/13/2019 8:29 PM) [id number]
[2019-11-13] MEDS ORDERED: TRAM50TA PO (20:39)
[2019-11-17] MEDS ORDERED: Smz/Tmp 800/160MG PO (10:25)
== END 2019-11-13 20:53 | disposition home or self-care (01) ==
LOC: ER 16:57
DX: R07.81 Pleurodynia (principal); I48.20 Chronic atrial fibrillation, unspecified; M19.90 Unspecified osteoarthritis, unspecified site; I11.9 Hypertensive heart disease without heart failure; E78.00 Pure hypercholesterolemia, unspecified; E03.9 Hypothyroidism, unspecified; I25.2 Old myocardial infarction; K21.9 Gastro-esophageal reflux disease without esophagitis; J44.9 Chronic obstructive pulmonary disease, unspecified; Z90.710 Acquired absence of both cervix and uterus; Z90.89 Acquired absence of other organs; Z95.0 Presence of cardiac pacemaker; Z98.890 Other specified postprocedural states; Z91.040 Latex allergy status; Z88.5 Allergy status to narcotic agent; Z88.8 Allergy status to other drugs, medicaments and biological substances
CPT/HCPCS: 71101; 71250; 99284

== ENCOUNTER 2019-11-15 16:52 | Inpatient (IN) | payer OTHER, MEDICAID ==
[~2019-11-15] VITALS: Ht 149.9 cm; Wt 53.1 kg
[~2019-11-15 16:52] MED LIST changes: +TRAM50TA PO
--- NOTE | 2019-11-15 17:13 | PHYS DOC ---
Past Medical History Past Medical History: A-Fib, Arthritis, CAD, COPD, Diabetes-Type II, GERD, High Cholesterol, Hypertension, Hypothyroid, CO, UTI Additional Past Medical Histor: esophagitis, hemorrhoids, hyperlipidemia, hiatal hernia, gastroparesis, RA Past Surgical History: Appendectomy, Hysterectomy, Tonsillectomy Additional Past Surgical Histo: cardiac cath, L ROTATOR CUFF Smoking Status: Never Smoker Alcohol Use: None Drug Use: None General Adult EDM: Chief Complaint: OTHER COMPLAINTS HPI: HPI: 79-year-old female presenting with left-sided rib pain that is tender to palpation. She had some x-rays performed a few days ago with a CT that showed no rib fractures. She is continued to have pain and is having trouble sleep at night. She is called her doctor multiple times without much response. Pain is a sharp shooting pain that is tender to palpation. She denies any nausea or diaphoresis. She denies fevers or chills. The pain is there at rest. Review of systems is negative for abdominal pain vomiting fevers chills. All other review of systems negative. ED course: 79-year-old female presenting with left-sided rib/chest wall pain. EKG and blood work ordered. EKG shows an irregularly irregular rhythm without an obvious identifiable P waves. ST segments congruent. Not suggestive of ACS. CBC shows mild anemia. Chemistry panel shows an elevated BUN and creatinine. Chemistry is up 2.0 versus previous at 1.6. Liver function test pending coags within normal limits. Patient will be signed out to oncoming team. Heart Score: Risk Factors: Risk Factors: DM, Current or recent (<one month) smoker, HTN, HLP, family history of CAD, obesity. Risk Scores: Score 0 - 3: 2.5% MACE over next 6 weeks - Discharge Home Score 4 - 6: 20.3% MACE over next 6 weeks - Admit for Clinical Observation Score 7 - 10: 72.7% MACE over next 6 weeks - Early Invasive Strategies Current Medications: Current Medications Medications (Trade) Dose Ordered Sig/Jana Start Time Stop Time Status Last Admin Dose Admin Fentanyl Citrate (Fentanyl 2ml Vial) 25 mcg 1X PRN PRN 11/15/19 17:15 Allergies: Allergies: Allergies Coded Allergies Type Severity Reaction Last Updated Verified Cephalexin Monohydrate Allergy Intermediate Hives 01/14/18 Yes codeine Allergy Intermediate 02/07/18 Yes latex Allergy Intermediate 05/12/14 Yes Physical Exam: PE: Constitutional: Well developed, well nourished, no acute distress, non-toxic appearance. HENT: Normocephalic, atraumatic, bilateral external ears normal, oropharynx moist, no oral exudates, nose normal. [] Eyes: PERRLA, EOMI, conjunctiva normal, no discharge. [] Neck: Normal range of motion, no tenderness, supple, no stridor. Cardiovascular:Heart rate regular rhythm, no murmur [] Lungs & Thorax: Bilateral breath sounds clear to auscultation []. Tenderness to palpation along the left lateral middle rib cage. No crepitus to palpation. Abdomen: Bowel sounds normal, soft, no tenderness, no masses, no pulsatile masses. [] Skin: Warm, dry, no erythema, no rash. Back: No tenderness, no CVA tenderness. [] Extremities: No tenderness, no cyanosis, no clubbing, ROM intact, no edema. Neurologic: Alert and oriented X 3, normal motor function, normal sensory function, no focal deficits noted. Psychologic: Affect normal, judgement normal, mood normal. [] EKG: EKG: [] Radiology/Procedures: Radiology/Procedures: [] Course & Med Decision Making: Course & Med Decision Making Pertinent Labs and Imaging studies reviewed. (See chart for details) [] Dragon Disclaimer: Dragon Disclaimer: This electronic medical record was generated, in whole or in part, using a voice recognition dictation system. Departure Departure Impression: Primary Impression: Chest wall pain Referrals: NICOLLE WHITE MD (PCP) Justicifation of Admission Dx: Justifications for Admission: Justification of Admission Dx: Yes RUBY MONIQUE MD Nov 15, 2019 17:13
[2019-11-15] MEDS: fentaNYL PF VIAL 100 MCG/2 ML VIAL IV PRN ×2 (17:35→20:56)
[2019-11-15 17:57] LABS: BASO % 0 % (0-3); EOS # 0.1 x10^3/uL (0.0-0.7); EOS % 1 % (0-3); HEMATOCRIT 35.1 % (36.0-47.0); HEMOGLOBIN 11.9 g/dL (12.0-15.5); LYMPH # 1.2 x10^3/uL (1.0-4.8); LYMPH % 11 % (24-48); MEAN CORPUSCULAR HEMOGLOBIN 30 pg (25-35); MEAN CORPUSCULAR HGB CONC 34 g/dL (31-37); MEAN CORPUSCULAR VOLUME 89 fL (79-100); MONO # 0.9 x10^3/uL (0.0-1.1); MONO % 8 % (0-9); NEUT # 8.7 x10^3/uL (1.8-7.7); NEUT % 80 % (31-73); PLATELET COUNT 368 x10^3/uL (140-400); RED BLOOD COUNT 3.95 x10^6/uL (3.50-5.40); RED CELL DISTRIBUTION WIDTH 15.2 % (11.5-14.5); WHITE BLOOD COUNT 10.9 x10^3/uL (4.0-11.0)
[2019-11-15 18:05] LABS: PROTHROMBIN TIME PATIENT 14.1 SEC (11.7-14.0)
[2019-11-15 18:09] LABS: CALCIUM 9.4 mg/dL (8.5-10.1)
[2019-11-15 18:16] LABS: ALBUMIN 2.9 g/dL (3.4-5.0); DIRECT BILIRUBIN 0.1 mg/dL (0.0-0.2); TOTAL BILIRUBIN 0.2 mg/dL (0.2-1.0); TOTAL PROTEIN 7.7 g/dL (6.4-8.2)
--- NOTE | 2019-11-15 18:25 | RAD ---
RIBS LEFT AND PA CHEST History: Chest pain Comparison: November 13, 2019 left rib radiographs and August 14, 2019 chest radiograph Findings: Single view of the chest and 2 additional views of the left ribs are submitted. There is again left shoulder arthroplasty. There is advanced degenerative change of the right glenohumeral articulation with bony deformity of the right humeral head as seen previously. There is again occlusion device along the left heart border. There is no pneumothorax, dependent pleural fluid, or lobar infiltrate. There is atherosclerotic calcification of the thoracic aorta. No displaced left rib fracture is identified by radiographs. Pericardial cardiac silhouette is enlarged although similar. Nonspecific superior right paratracheal opacity is similar dating back to February 09, 2018 exam. Impression: 1. No acute radiographic abnormality is identified. Electronically signed by: Colton Martínez MD (11/15/2019 6:22 PM) [facility]
[2019-11-15] MEDS ORDERED: fentaNYL PF VIAL 100 MCG/2 ML VIAL IV PRN (19:00)
[2019-11-15] MEDS ORDERED: ONDANSETRON PF 4 MG/2 ML VIAL. IV PRN (19:00)
[2019-11-15] MEDS ORDERED: ASPIRIN CHEWABLE 81 MG TABLET. PO ONE (19:15)
[2019-11-16] VITALS (7 sets, daily range): BP systolic 106–164; BP diastolic 67–87
[2019-11-16] MEDS: fentaNYL PF VIAL 100 MCG/2 ML VIAL IV PRN (01:27)
[2019-11-16] MEDS ORDERED: FERR325T14 PO (06:31)
[2019-11-16] MEDS ORDERED: DOCU100C28 PO (06:31)
[2019-11-16] MEDS ORDERED: METO25TA4 PO (06:31)
[2019-11-16] MEDS ORDERED: OMEP40CA45 PO (06:31)
[2019-11-16] MEDS ORDERED: ATOR20TA58 PO (06:31)
[2019-11-16] MEDS ORDERED: ZINC220T3 PO (06:31)
[2019-11-16] MEDS ORDERED: SOLI10TA2 PO (06:31)
[2019-11-16] MEDS ORDERED: CYAN100031 PO (06:31)
[2019-11-16] MEDS ORDERED: ERGO500027 PO (06:31)
[2019-11-16] MEDS ORDERED: ASCO100T4 PO (06:31)
[2019-11-16] MEDS ORDERED: CLOP75TA PO (06:31)
[2019-11-16] MEDS ORDERED: NYST100054 PO (06:31)
[2019-11-16] MEDS ORDERED: MULT-245 PO (06:31)
[2019-11-16] MEDS ORDERED: LACT1CAP6 PO (06:31)
--- NOTE | 2019-11-16 11:13 | PDOC ---
Provider Note Provider Note Pt seen .H&P dictated.#[id number]. Justicifation of Admission Dx: Justifications for Admission: Justification of Admission Dx: Yes NH: Acute NSTEMI (jacquelin jaycobnileigh) NICOLLE WHITE MD Nov 16, 2019 11:13
--- NOTE | 2019-11-16 11:39 | HP ---
ADMIT DATE: 11/15/2019 MEDICAL HISTORY AND PHYSICAL REASON FOR ADMISSION TO THE HOSPITAL: Chest pain, slight elevation in troponin, chronic kidney disease. HISTORY OF PRESENT ILLNESS: The patient is an 79-year-old female. She has a history of rheumatoid arthritis. She is wheelchair level, power wheelchair. She has a history of atrial fibrillation, had a Watchman's procedure, has diabetes, hypertension, hyperlipidemia, arthritis, hypothyroidism, recurrent UTIs. She was having pain, left side, came to the Emergency Room last week, had a chest x-ray and a CT scan, negative for any rib fractures. The patient was sent home. In spite of that, the patient was still complaining of pain, she was not able to tolerate the pain, came to the Emergency Room again; and chest x-ray, no fractures; creatinine was 2; and troponin was 0.1. The patient was admitted for further investigation and treatment. PAST SURGICAL HISTORY: Appendectomy, hysterectomy, tonsillectomy and left shoulder replacement. She also had a Watchman's procedure for AFib. ALLERGIES: KEFLEX, CODEINE AND LATEX. MEDICATIONS AT HOME: Aspirin 81 mg daily; atorvastatin 20 mg daily; Plavix 75 mg daily; Colestid 1 g b.i.d.; Colace 100 mg daily; vitamin D daily; iron 325 daily; folic acid 1 mg daily; Lasix 20 mg daily; gabapentin 100 mg 3 times daily; hydrocodone 1 q.6h.; hydroxychloroquine 200 mg twice a day for rheumatoid arthritis; levothyroxine 75 mcg daily; metoprolol 25 mg twice a day; nystatin; potassium 10 mEq daily; zinc; VESIcare 10 mg daily; omeprazole 40 mg daily; vitamin daily; meclizine for dizziness; she was put on Bactrim DS by urologist yesterday in the clinic; she is on prednisone, I am not sure if she is on chronic prednisone. PERSONAL HISTORY: No smoking, alcohol or drug abuse. SOCIAL HISTORY: Lives at home, has a caregiver. She is on motorized wheelchair. FAMILY HISTORY: Arthritis, heart disease. REVIEW OF SYMPTOMS: The patient complains of pain on the left side of the chest. Denies falling. PHYSICAL EXAMINATION: GENERAL: Elderly female. VITAL SIGNS: Temperature 98, pulse 94, respirations 20, blood pressure 153/98 and 95% on room air. HEENT: Head is atraumatic. Pupils are equal. Oral cavity, no teeth. NECK: Supple. Thyroid not enlarged. JVD not elevated. CHEST: Symmetrical. Has a shoulder scar from shoulder replacement. LUNGS: Clear to auscultation. CARDIOVASCULAR: S1, S2. No murmurs. ABDOMEN: Soft. No mass palpable. EXTERNAL GENITALIA: No Dowd. RECTAL: Deferred. EXTREMITIES: No calf tenderness. The patient has arthritis in the hands as well as in the toes from rheumatoid arthritis with deformities. NEUROLOGIC: Cranial nerves intact grossly. Power 5/5. No focal deficits noted. LABORATORY DATA: White count 11, hemoglobin 12, platelets 368. INR 1.1. Electrolytes: Sodium 139, potassium 4.0, chloride 101, bicarbonate 29, anion gap 9, BUN 36, creatinine 2.0, glucose 127. LFTs normal. Troponin 0.084, went up to 0.1. Chest x-ray with ribs, no acute abnormality. EKG, negative for ischemia. FINAL IMPRESSION: 1. Chest wall pain. 2. Slight elevation in troponin. 3. Chronic atrial fibrillation, had Watchman's procedure, not on any anticoagulation now. 4. Rheumatoid arthritis. 5. Hypertension. 6. Hyperlipidemia. 7. Hypothyroidism. 8. Chronic kidney disease. 9. History of multiple surgeries as mentioned above. PLAN: At this time was admit to hospital. We will do a CT of the chest to rule out any rib fractures, unfortunately cannot do with contrast because of the kidney failure. Cardiology is consulted, serial enzymes and EKG and see how the patient's condition improves with IV fluids. Monitor kidney function. NICOLLE WHITE MD DR: ROB/duncan JOB#: [id number] / [id number]
[2019-11-16] MEDS: IV NORMAL SALINE 1000ML BAG 1,000 ML IV SCH (12:00)
[2019-11-16] MEDS: METOPROLOL TART IMMED RELEASE 25 MG TABLET. PO SCH ×2 (12:01→22:21)
[2019-11-16] MEDS: HYDROcodone/APAP 7.5/325MG 1 TAB TABLET PO PRN (12:01)
[2019-11-16] MEDS: FOLIC ACID 1 MG TABLET. PO SCH (12:01)
[2019-11-16] MEDS: PANTOPRAZOLE 40 MG TABLET.DR. PO SCH (12:01)
[2019-11-16] MEDS: DOCUSATE SODIUM 100 MG CAPSULE. PO SCH ×2 (12:02→22:21)
[2019-11-16] MEDS: ZINC SULFATE 220 MG CAPSULE. PO SCH (12:02)
[2019-11-16] MEDS: predniSONE 10 MG TABLET PO SCH (12:02)
[2019-11-16] MEDS: ASPIRIN CHEWABLE 81 MG TABLET. PO SCH (12:02)
[2019-11-16] MEDS: CLOPIDOGREL BISULFATE 75 MG TABLET PO SCH (12:02)
[2019-11-16] MEDS: HYDROXYCHLOROQUINE 200 MG TABLET PO SCH ×2 (12:02→22:22)
[2019-11-16] MEDS: SMZ/TMP 800/160MG TABLET. PO SCH ×2 (12:03→22:19)
[2019-11-16 12:29] LABS: CHOLESTEROL/HDL RATIO 2.5
[2019-11-16] MEDS ORDERED: NYSTATIN 100,000 UNITS/ML 5 ML ORAL.SUSP. PO SCH (13:00)
--- NOTE | 2019-11-16 14:41 | RAD ---
VQ Scan: Clinical History: Chest pain. Technique: 5 mCi of Tc 99m MAA was administered intravenously and spot views were obtained on the gamma camera for a Nuclear Medicine perfusion examination. Findings/ impression: The perfusion scan demonstrates few bilateral lung perfusion defects. Since there are no ventilation scan was performed, this could be at least intermediate probability for pulmonary embolism. Recommend ultrasound bilateral lower extremity venous duplex and CT angiogram chest if clinically feasible. Electronically signed by: Irving Daugherty MD (11/16/2019 2:38 PM) [id number]
[2019-11-16] MEDS: ENOXAPARIN 30 MG/0.3 ML SYRINGE. SQ SCH (16:19)
[2019-11-16] MEDS: LEVOTHYROXINE 75 MCG TABLET PO SCH (16:19)
[2019-11-16] MEDS: GABAPENTIN 100 MG CAPSULE. PO SCH ×2 (17:40→22:21)
--- NOTE | 2019-11-16 18:02 | RAD ---
VENOUS LOWER EXT BILATERAL History: Chest pain. Shortness of breath. Comparison: None. Discussion: Multiple longitudinal and transverse high resolution real-time images of the venous system of bilateral lower extremity were obtained with color and Doppler sampling. The common femoral, superficial femoral, popliteal and proximal calf veins are all patent and demonstrate normal flow and compressibility. Normal respiratory phasicity and augmentation is present. Impression: 1. No evidence of deep vein thrombosis. Electronically signed by: Antonio Corrigan DO (11/16/2019 5:59 PM) [facility]
[2019-11-16] MEDS: COLESTIPOL HCL 1 GM TABLET PO SCH (22:19)
[2019-11-16] MEDS: ATORVASTATIN CALCIUM 20 MG TABLET PO SCH (22:21)
[2019-11-17] VITALS (7 sets, daily range): BP systolic 98–144; BP diastolic 65–91
[2019-11-17] MEDS: IV NORMAL SALINE 1000ML BAG 1,000 ML IV SCH ×2 (02:39→13:01)
[2019-11-17 04:39] LABS: BASO % 0 % (0-3); EOS # 0.1 x10^3/uL (0.0-0.7); EOS % 1 % (0-3); HEMATOCRIT 31.3 % (36.0-47.0); HEMOGLOBIN 10.3 g/dL (12.0-15.5); LYMPH # 1.1 x10^3/uL (1.0-4.8); LYMPH % 10 % (24-48); MEAN CORPUSCULAR HEMOGLOBIN 29 pg (25-35); MEAN CORPUSCULAR HGB CONC 33 g/dL (31-37); MEAN CORPUSCULAR VOLUME 89 fL (79-100); MONO # 0.6 x10^3/uL (0.0-1.1); MONO % 6 % (0-9); NEUT # 9.4 x10^3/uL (1.8-7.7); NEUT % 83 % (31-73); PLATELET COUNT 311 x10^3/uL (140-400); RED CELL DISTRIBUTION WIDTH 15.6 % (11.5-14.5); WHITE BLOOD COUNT 11.2 x10^3/uL (4.0-11.0)
[2019-11-17 04:59] LABS: CALCIUM 8.6 mg/dL (8.5-10.1); CREATININE 1.7 mg/dL (0.6-1.0); GFR 28.9; POTASSIUM 3.9 mmol/L (3.5-5.1)
[2019-11-17] MEDS: LEVOTHYROXINE 75 MCG TABLET PO SCH (05:59)
--- NOTE | 2019-11-17 07:51 | PDOC2 ---
CARDIOLOGY CONSULT NOTE CHIEF COMPLAINT: Chest pain HPI: 79 y.o woman with multiple medical problems presenting with rib pain. Positive troponin is the reason for consult. No recent anginal symptoms or palpitations. Admitted with CKD and anemia as well. PMHX: Atrial fibrillation Anemia s/p watchman device HTN CKD SOCHX: No alcohol, tob or illicits. FAMHX: NC CURRENT MEDS: Current Medications Medications (Trade) Dose Ordered Sig/Jana Route PRN Reason Start Time Stop Time Status Last Admin Dose Admin Trimethoprim/ Sulfamethoxazole (Bactrim Ds) 0.5 tab BID PO 11/16/19 12:00 11/16/19 22:19 Sodium Chloride 1,000 ml @ 75 mls/hr [id number] IV 11/16/19 11:00 11/17/19 02:39 Aspirin (Aspirin Chewable) 81 mg DAILY PO 11/16/19 12:00 11/16/19 12:02 Atorvastatin Calcium (Lipitor) 20 mg QHS PO 11/16/19 21:00 11/16/19 22:21 Clopidogrel Bisulfate (Plavix) 75 mg DAILY PO 11/16/19 12:00 11/16/19 12:02 Colestipol HCl (Colestid) 1 gm BID@1000,2200 PO 11/16/19 22:00 11/16/19 22:19 Docusate Sodium (Colace) 100 mg BID PO 11/16/19 11:00 11/16/19 22:21 Folic Acid (Folic Acid) 1 mg DAILY PO 11/16/19 12:00 11/16/19 12:01 Gabapentin (Neurontin) 100 mg TID PO 11/16/19 14:00 11/16/19 22:21 Acetaminophen/ Hydrocodone Bitart (Lortab 7.5/325) 1 tab PRN Q6HRS PRN PO MODERATE PAIN 11/16/19 11:15 11/16/19 12:01 Hydroxychloroquine Sulfate (Plaquenil) 200 mg BID PO 11/16/19 11:00 11/16/19 22:22 Levothyroxine Sodium (Synthroid) 75 mcg DAILY06 PO 11/16/19 12:00 11/17/19 05:59 Metoprolol Tartrate (Lopressor) 25 mg BID PO 11/16/19 11:00 11/16/19 22:21 Prednisone (Prednisone) 10 mg DAILY PO 11/16/19 12:00 11/16/19 12:02 Pantoprazole Sodium (Protonix) 40 mg DAILYAC PO 11/16/19 11:30 11/16/19 12:01 Zinc Sulfate (Orazinc) 220 mg DAILY PO 11/16/19 12:00 11/16/19 12:02 Enoxaparin Sodium (Lovenox 30mg Syringe) 30 mg Q24H SQ 11/16/19 15:00 11/16/19 16:19 ALLERGIES: Allergies Coded Allergies Type Severity Reaction Last Updated Verified Cephalexin Monohydrate Allergy Intermediate Hives 01/14/18 Yes codeine Allergy Intermediate 02/07/18 Yes latex Allergy Intermediate 05/12/14 Yes ROS: Negative unless noted above in HPI PHYSICAL EXAM: Vital Signs/I&O: Vital Signs Date Time Temp Pulse Resp B/P (MAP) Pulse Ox O2 Delivery O2 Flow Rate FiO2 11/17/19 02:59 97.2 79 144/84 (104) 94 Room Air 97.2 11/16/19 23:50 20 11/16/19 14:40 2.0 I & O 11/16/19 11/16/19 11/17/19 15:00 23:00 07:00 Intake Total 0 ml 250 ml 250 ml Output Total 300 ml 900 ml Balance -300 ml 250 ml -650 ml Physical Exam: GEN.: No apparent distress. Alert and oriented. HEENT: Head is normocephalic, atraumatic NECK: Supple. LUNGS: Clear to auscultation. HEART: irr irr, S1, S2 present. Peripheral pulses intact ABDOMEN: Soft, nontender. Positive bowel sounds. EXTREMITIES: Without any cyanosis. NEUROLOGIC: Normal speech, normal tone PSYCHIATRIC: Normal affect, normal mood. SKIN: No ulcerations DIAGNOSTIC TESTING: ND Lab Laboratory Tests Test 11/16/19 11:53 11/17/19 04:15 Cholesterol Level 124 mg/dL (0-200) LDL Cholesterol, Calculated 58 mg/dL (0-100) VLDL Cholesterol, Calculated 17 mg/dL (0-40) Non-HDL Cholesterol Calculated 75 mg/dL (0-129) Cholesterol/HDL Ratio 2.5 Thyroid Stimulating Hormone (TSH) 0.944 uIU/mL (0.358-3.74) White Blood Count 11.2 x10^3/uL (4.0-11.0) H Red Blood Count 3.50 x10^6/uL (3.50-5.40) Hemoglobin 10.3 g/dL (12.0-15.5) L Hematocrit 31.3 % (36.0-47.0) L Mean Corpuscular Volume 89 fL (79-100) Mean Corpuscular Hemoglobin 29 pg (25-35) Mean Corpuscular Hemoglobin Concent 33 g/dL (31-37) Red Cell Distribution Width 15.6 % (11.5-14.5) H Platelet Count 311 x10^3/uL (140-400) Neutrophils (%) (Auto) 83 % (31-73) H Lymphocytes (%) (Auto) 10 % (24-48) L Monocytes (%) (Auto) 6 % (0-9) Eosinophils (%) (Auto) 1 % (0-3) Basophils (%) (Auto) 0 % (0-3) Neutrophils # (Auto) 9.4 x10^3/uL (1.8-7.7) H Lymphocytes # (Auto) 1.1 x10^3/uL (1.0-4.8) Monocytes # (Auto) 0.6 x10^3/uL (0.0-1.1) Eosinophils # (Auto) 0.1 x10^3/uL (0.0-0.7) Basophils # (Auto) 0.0 x10^3/uL (0.0-0.2) Sodium Level 138 mmol/L (136-145) Potassium Level 3.9 mmol/L (3.5-5.1) Chloride Level 104 mmol/L (98-107) Carbon Dioxide Level 26 mmol/L (21-32) Anion Gap 8 (6-14) Blood Urea Nitrogen 32 mg/dL (7-20) H Creatinine 1.7 mg/dL (0.6-1.0) H Estimated GFR (Cockcroft-Gault) 28.9 Glucose Level 107 mg/dL (70-99) H Calcium Level 8.6 mg/dL (8.5-10.1) Laboratory Tests 11/17/19 04:15 ASSESSMENT: 1. Non-cardiac chest pain 2. Troponin elevation - likely chronic and due to CKD. 3. HTN PLAN: 1. No further CV testing needed at this time. ANUSHA at 02/2019 WNL 2. If no resolution of pain with usual mgmt, then consider further evaluation Late entry for 11/16/2019 RAMAN VILLARREAL MD Nov 17, 2019 07:51
[2019-11-17] MEDS: METOPROLOL TART IMMED RELEASE 25 MG TABLET. PO SCH ×2 (08:40→21:02)
[2019-11-17] MEDS: ASPIRIN CHEWABLE 81 MG TABLET. PO SCH (08:40)
[2019-11-17] MEDS: ZINC SULFATE 220 MG CAPSULE. PO SCH (08:40)
[2019-11-17] MEDS: FOLIC ACID 1 MG TABLET. PO SCH (08:40)
[2019-11-17] MEDS: CLOPIDOGREL BISULFATE 75 MG TABLET PO SCH (08:40)
[2019-11-17] MEDS: COLESTIPOL HCL 1 GM TABLET PO SCH ×2 (08:41→21:01)
[2019-11-17] MEDS: PANTOPRAZOLE 40 MG TABLET.DR. PO SCH (08:41)
[2019-11-17] MEDS: GABAPENTIN 100 MG CAPSULE. PO SCH ×3 (08:41→21:01)
[2019-11-17] MEDS: predniSONE 10 MG TABLET PO SCH (08:41)
[2019-11-17] MEDS: SMZ/TMP 800/160MG TABLET. PO SCH ×2 (08:41→21:01)
[2019-11-17] MEDS: HYDROXYCHLOROQUINE 200 MG TABLET PO SCH ×2 (08:41→21:01)
[2019-11-17] MEDS: DOCUSATE SODIUM 100 MG CAPSULE. PO SCH ×2 (08:41→21:01)
--- NOTE | 2019-11-17 10:16 | PDOC ---
PROGRESS NOTES Subjective Subjective feels better , want to go home Objective Objective Vital Signs Date Time Temp Pulse Resp B/P (MAP) Pulse Ox O2 Delivery O2 Flow Rate FiO2 11/17/19 08:40 73 140/88 11/17/19 08:01 Room Air 11/17/19 07:00 98.2 97 98.2 11/16/19 23:50 20 11/16/19 14:40 2.0 Intake and Output 11/17/19 07:00 Intake Total 500 ml Output Total 1200 ml Balance -700 ml Intake Oral 500 ml Output Urine Total 1200 ml # Voids 1 Physical Exam Abdomen: Soft Extremities: No clubbing HEENT: Atraumatic Lungs: Clear to auscultation MUSCULOSKELETAL: No swelling, Osteoarthritic changes both hands Neck: Supple Neuro: Normal speech Psych/Mental Status: Mood NL Skin: No breakdown Diagnosis Problem List Problems Medical Problems: (1) Chest wall pain Status: Acute Assessment Assessment Problems Medical Problems: (1) Chest wall pain Status: Acute FINAL IMPRESSION: 1. Chest wall pain. 2. Slight elevation in troponin. 3. Chronic atrial fibrillation, had Watchman's procedure, not on any anticoagulation now. 4. Rheumatoid arthritis. 5. Hypertension. 6. Hyperlipidemia. 7. Hypothyroidism. 8. Chronic kidney disease. 9. History of multiple surgeries as mentioned above. PLAN:cannot do CTA due to kidney failure Perfusion scan done,intermediate probability of PE venous doppler neg. cr 1.7 down from 2.0 h/o A fib pt does not ambulate may be short 3 month treatment with eliquis 2.5 mg bid will help with anticoagulation. At this time was admit to hospital. We will do a CT of the chest to rule out any rib fractures, unfortunately cannot do with contrast because of the kidney failure. Cardiology is consulted, serial enzymes and EKG and see how the patient's condition improves with IV fluids. Monitor kidney function. Plan Plan of Care Problems Medical Problems: (1) Chest wall pain Status: Acute Comment Review of Relevant I have reviewed the following items amador (where applicable) has been applied. Labs Laboratory Tests Test 11/16/19 11:53 11/17/19 04:15 Troponin I Quantitative 0.076 ng/mL (0.000-0.055) Triglycerides Level 84 mg/dL (0-150) Cholesterol Level 124 mg/dL (0-200) LDL Cholesterol, Calculated 58 mg/dL (0-100) VLDL Cholesterol, Calculated 17 mg/dL (0-40) Non-HDL Cholesterol Calculated 75 mg/dL (0-129) HDL Cholesterol 49 mg/dL (40-60) Cholesterol/HDL Ratio 2.5 Thyroid Stimulating Hormone (TSH) 0.944 uIU/mL (0.358-3.74) White Blood Count 11.2 x10^3/uL (4.0-11.0) Red Blood Count 3.50 x10^6/uL (3.50-5.40) Hemoglobin 10.3 g/dL (12.0-15.5) Hematocrit 31.3 % (36.0-47.0) Mean Corpuscular Volume 89 fL (79-100) Mean Corpuscular Hemoglobin 29 pg (25-35) Mean Corpuscular Hemoglobin Concent 33 g/dL (31-37) Red Cell Distribution Width 15.6 % (11.5-14.5) Platelet Count 311 x10^3/uL (140-400) Neutrophils (%) (Auto) 83 % (31-73) Lymphocytes (%) (Auto) 10 % (24-48) Monocytes (%) (Auto) 6 % (0-9) Eosinophils (%) (Auto) 1 % (0-3) Basophils (%) (Auto) 0 % (0-3) Neutrophils # (Auto) 9.4 x10^3/uL (1.8-7.7) Lymphocytes # (Auto) 1.1 x10^3/uL (1.0-4.8) Monocytes # (Auto) 0.6 x10^3/uL (0.0-1.1) Eosinophils # (Auto) 0.1 x10^3/uL (0.0-0.7) Basophils # (Auto) 0.0 x10^3/uL (0.0-0.2) Sodium Level 138 mmol/L (136-145) Potassium Level 3.9 mmol/L (3.5-5.1) Chloride Level 104 mmol/L (98-107) Carbon Dioxide Level 26 mmol/L (21-32) Anion Gap 8 (6-14) Blood Urea Nitrogen 32 mg/dL (7-20) Creatinine 1.7 mg/dL (0.6-1.0) Estimated GFR (Cockcroft-Gault) 28.9 Glucose Level 107 mg/dL (70-99) Calcium Level 8.6 mg/dL (8.5-10.1) Medications Current Medications Acetaminophen/ Hydrocodone Bitart (Lortab 7.5/325) 1 tab PRN Q6HRS PRN PO MODERATE PAIN Last administered on 11/16/19 12:01; Start 11/16/19 at 11:15 Aspirin (Aspirin Chewable) 81 mg DAILY PO Last administered on 11/17/19 08:40; Start 11/16/19 at 12:00 Atorvastatin Calcium (Lipitor) 20 mg QHS PO Last administered on 11/16/19 22:21; Start 11/16/19 at 21:00 Clopidogrel Bisulfate (Plavix) 75 mg DAILY PO Last administered on 11/17/19 08:40; Start 11/16/19 at 12:00 Colestipol HCl (Colestid) 1 gm BID@1000,2200 PO Last administered on 11/17/19 08:41; Start 11/16/19 at 22:00 Docusate Sodium (Colace) 100 mg BID PO Last administered on 11/17/19 08:41; Start 11/16/19 at 11:00 Enoxaparin Sodium (Lovenox 30mg Syringe) 30 mg Q24H SQ Last administered on 11/16/19 16:19; Start 11/16/19 at 15:00 Folic Acid (Folic Acid) 1 mg DAILY PO Last administered on 11/17/19 08:40; Start 11/16/19 at 12:00 Gabapentin (Neurontin) 100 mg TID PO Last administered on 11/17/19 08:41; Start 11/16/19 at 14:00 Hydroxychloroquine Sulfate (Plaquenil) 200 mg BID PO Last administered on 11/17/19 08:41; Start 11/16/19 at 11:00 Levothyroxine Sodium (Synthroid) 75 mcg DAILY06 PO Last administered on 11/17/19 05:59; Start 11/16/19 at 12:00 Metoprolol Tartrate (Lopressor) 25 mg BID PO Last administered on 11/17/19 08:40; Start 11/16/19 at 11:00 Nystatin (Nystatin Oral Susp) 5 ml QID PO ; Start 11/16/19 at 13:00; Stop 11/16/19 at 16:27; Status DC Pantoprazole Sodium (Protonix) 40 mg DAILYAC PO Last administered on 11/17/19at 08:41; Start 11/16/19 at 11:30 Prednisone (Prednisone) 10 mg DAILY PO Last administered on 11/17/19at 08:41; Start 11/16/19 at 12:00 Sodium Chloride 1,000 ml @ 75 mls/hr [id number] IV Last administered on 11/17/19at 02:39; Start 11/16/19 at 11:00 Trimethoprim/ Sulfamethoxazole (Bactrim Ds) 0.5 tab BID PO Last administered on 11/17/19at 08:41; Start 11/16/19 at 12:00 Zinc Sulfate (Orazinc) 220 mg DAILY PO Last administered on 11/17/19at 08:40; Start 11/16/19 at 12:00 Vitals/I & O Vital Sign - Last 24 Hours 11/16/19 11/16/19 11/16/19 11/16/19 10:36 12:01 12:01 13:01 Temp 97.4 97.4 Pulse 105 105 Resp 18 18 18 B/P (MAP) 118/80 (93) 118/80 Pulse Ox 94 94 91 O2 Delivery Nasal Cannula Room Air Room Air O2 Flow Rate 2.0 2.0 2.0 11/16/19 11/16/19 11/16/19 11/16/19 14:40 19:00 19:50 22:21 Temp 98.2 98.4 98.2 98.4 Pulse 72 73 73 Resp 18 20 B/P (MAP) 127/87 (100) 115/68 (84) 115/68 Pulse Ox 91 92 O2 Delivery Nasal Cannula Room Air Room Air O2 Flow Rate 2.0 11/16/19 11/17/19 11/17/19 11/17/19 23:50 02:59 07:00 08:01 Temp 97.0 97.2 98.2 97.0 97.2 98.2 Pulse 73 79 73 Resp 20 B/P (MAP) 106/71 (83) 144/84 (104) 140/88 (105) Pulse Ox 94 94 97 O2 Delivery Room Air Room Air Room Air Room Air 11/17/19 08:40 Pulse 73 B/P (MAP) 140/88 Intake and Output0 11/16/19 11/16/19 11/17/19 15:00 23:00 07:00 Intake Total 0 ml 250 ml 250 ml Output Total 300 ml 900 ml Balance -300 ml 250 ml -650 ml Justicifation of Admission Dx: Justifications for Admission: Justification of Admission Dx: Yes OK: Acute NSTEMI (jacquelin tropnin) NICOLLE WHITE MD Nov 17, 2019 10:16
[2019-11-17] MEDS ORDERED: Smz/Tmp 800/160MG PO (10:25)
[2019-11-17] MEDS: ENOXAPARIN 30 MG/0.3 ML SYRINGE. SQ SCH (13:01)
--- NOTE | 2019-11-17 13:54 | CONS ---
DATE OF CONSULTATION: 11/17/2019 REASON FOR CONSULTATION: I was asked to see this 79-year-old lady for abnormal perfusion scan chest pain. HISTORY OF PRESENT ILLNESS: She is a lifelong nonsmoker. She is wheelchair bound. She presented to the Emergency Room on 11/[address] of the chest was done without contrast, which did not show any abnormality. She was sent home. She came back to the Emergency Room again with chest pain and V/Q scan was ordered, but due to COVID-19, the ventilation part was not done and perfusion scan was intermediate probability. Currently, she is a lifelong nonsmoker. She denies chest pain at this point. She denies shortness of breath. She has some postnasal drip, but the drainage is clear. PAST MEDICAL HISTORY: Atrial fibrillation, status post Watchman procedure at ; arthritis; coronary artery disease; COPD; diabetes mellitus; hypertension; hypercholesterolemia; rheumatoid arthritis; wheelchair bound. ALLERGIES: CEPHALEXIN, CODEINE, LATEX. MEDICATIONS: Currently, she is on Lipitor, Lovenox 30 mg daily, Neurontin, prednisone 10 mg daily, Synthroid, folic acid, Plavix, aspirin, Bactrim, Protonix, hydroxychloroquine 200 b.i.d., metoprolol. SOCIAL HISTORY: Lifelong nonsmoker. FAMILY HISTORY: Hypertension. REVIEW OF SYSTEMS: As mentioned as above, other systems are otherwise negative. PHYSICAL EXAMINATION: GENERAL: This is a frail elderly lady. VITAL SIGNS: Her O2 saturation on room air is 97%, respiratory rate 18, heart rate 73, blood pressure 140/80, temperature 98.2. HEENT: Normocephalic, atraumatic. CHEST: There is no paradoxical abdominal motion. CARDIOVASCULAR: Sinus rhythm on EKG. She appears comfortable. She is alert. There is no edema. There is no rash. LABORATORY DATA: I reviewed the following lab data: Chest x-ray did not show any acute abnormality. Perfusion scan was intermediate. Lower extremity venous Doppler was negative. Sodium 138, potassium 3.9, chloride 104, CO2 of 26, glucose 107, BUN 32, creatinine 1.7. On admission, her creatinine was 2. Troponin 0.084, repeat 0.076. Hemoglobin 10.3 today, yesterday was 11.9. WBC 10.9, platelets 367. IMPRESSION: 1. Chest pain with intermediate perfusion scan, chest pain is now resolved. 2. Rheumatoid arthritis, wheelchair bound. 3. Diabetes mellitus. 4. Coronary artery disease. 5. Elevated troponin. 6. History of atrial fibrillation. 7. Acute kidney injury. 8. Chronic kidney disease. PLAN AND RECOMMENDATIONS: 1. The patient is wheelchair bound and so she is high risk for developing thromboembolic disease, but her hemoglobin is 10.3. Her chest pain has resolved, but troponin is slightly elevated, which is worrisome. Her perfusion scan is intermediate. Unfortunately, the ventilation part is not done. I do not recommend to put her on empiric anticoagulation. I do recommend a D-dimer stat. If it is negative, the possibility of thromboembolic disease is very low. If it is elevated, then I do recommend a cardiac echocardiogram to rule out a right heart strain, which might be seen in pulmonary embolism. It is difficult situation treating or not treating thromboembolic disease is risk due to above factors. 2. COVID-19 is ordered. We will follow up with the results. 3. Continue Lovenox 30 mg subcutaneous daily at this point. 4. The findings and recommendations were discussed with Dr. Chaudhry and the patient. Thank you very much for allowing me to participate in care of this very nice lady. KRISTINA OSPINA M.D. : LISA/duncan JOB#: [id number] / [id number] LEANN
--- NOTE | 2019-11-17 16:07 | NUR ---
Negative Covjaylen, Dr. Chaudhry aware, order to transfer to [facility]. Report called to SAUL Chou. Pt assisted via wheelchair with staff and all belongings. VSS and pt alert and oriented.
--- NOTE | 2019-11-17 17:01 | PDOC ---
CARDIOLOGY PROGRESS NOTE SUBJECTIVE: No new events overnight. Reports chest pain is much better. Planning to go home tomorrow. OBJECTIVE: Vital Signs/I&O: Vital Signs Date Time Temp Pulse Resp B/P (MAP) Pulse Ox O2 Delivery O2 Flow Rate FiO2 11/17/19 16:15 Room Air 11/17/19 14:39 97.8 66 16 125/80 (95) 97 97.8 11/16/19 14:40 2.0 I & O 11/16/19 11/16/19 11/17/19 15:00 23:00 07:00 Intake Total 0 ml 250 ml 250 ml Output Total 300 ml 900 ml Balance -300 ml 250 ml -650 ml Objective: GEN.: No apparent distress. Alert and oriented. HEENT: Head is normocephalic, atraumatic NECK: Supple. LUNGS: Clear to auscultation. HEART: RRR, S1, S2 present. Peripheral pulses intact ABDOMEN: Soft, nontender. Positive bowel sounds. EXTREMITIES: Without any cyanosis. NEUROLOGIC: Normal speech, normal tone PSYCHIATRIC: Normal affect, normal mood. SKIN: No ulcerations CURRENT MEDICATIONS: Current Medications Medications (Trade) Dose Ordered Sig/Jana Route PRN Reason Start Time Stop Time Status Last Admin Dose Admin Atorvastatin Calcium (Lipitor) 20 mg QHS PO 11/16/19 21:00 11/16/19 22:21 Colestipol HCl (Colestid) 1 gm BID@1000,2200 PO 11/16/19 22:00 11/17/19 08:41 DIAGNOSTIC TESTING: Labs reviewed. Labs: Laboratory Tests 11/17/19 04:15 Laboratory Tests Test 11/16/19 17:50 11/17/19 04:15 11/17/19 15:00 Coronavirus (COVID-19)(PCR) Negative (NEGATIVE) White Blood Count 11.2 x10^3/uL (4.0-11.0) H Red Blood Count 3.50 x10^6/uL (3.50-5.40) Hemoglobin 10.3 g/dL (12.0-15.5) L Hematocrit 31.3 % (36.0-47.0) L Mean Corpuscular Volume 89 fL (79-100) Mean Corpuscular Hemoglobin 29 pg (25-35) Mean Corpuscular Hemoglobin Concent 33 g/dL (31-37) Red Cell Distribution Width 15.6 % (11.5-14.5) H Platelet Count 311 x10^3/uL (140-400) Neutrophils (%) (Auto) 83 % (31-73) H Lymphocytes (%) (Auto) 10 % (24-48) L Monocytes (%) (Auto) 6 % (0-9) Eosinophils (%) (Auto) 1 % (0-3) Basophils (%) (Auto) 0 % (0-3) Neutrophils # (Auto) 9.4 x10^3/uL (1.8-7.7) H Lymphocytes # (Auto) 1.1 x10^3/uL (1.0-4.8) Monocytes # (Auto) 0.6 x10^3/uL (0.0-1.1) Eosinophils # (Auto) 0.1 x10^3/uL (0.0-0.7) Basophils # (Auto) 0.0 x10^3/uL (0.0-0.2) Sodium Level 138 mmol/L (136-145) Potassium Level 3.9 mmol/L (3.5-5.1) Chloride Level 104 mmol/L (98-107) Carbon Dioxide Level 26 mmol/L (21-32) Anion Gap 8 (6-14) Blood Urea Nitrogen 32 mg/dL (7-20) H Creatinine 1.7 mg/dL (0.6-1.0) H Estimated GFR (Cockcroft-Gault) 28.9 Glucose Level 107 mg/dL (70-99) H Calcium Level 8.6 mg/dL (8.5-10.1) D-Dimer (Karen) 0.98 ug/mlFEU (0.00-0.50) H ASSESSMENT: 1. Permanent atrial fibrillation s/p LAAO 2. HTN 3. Diastolic HF 4. Atypical chest pain - likely MSK 5. Elevated troponin - likely type 2. PLAN: 1. Continue asa, plavix and atorvastatin. I believe she is on ASA and plavix due to her LAAO device. 2. She is being considered for Eliquis. If she is going to be started on eliquis, would then stop her aspirin. 3. Will obtain routine echo as she has not had f/u at [facility] in over 6 months. Justicifation of Admission Dx: Justifications for Admission: Justification of Admission Dx: Yes IN: Acute NSTEMI (jacquelin antonio) RAMAN VILLARREAL MD Nov 17, 2019 17:01
[2019-11-17] MEDS: LACTOBACILLUS RHAMNOSUS GG 1 CAPSULE. PO SCH (21:01)
[2019-11-17] MEDS: ATORVASTATIN CALCIUM 20 MG TABLET PO SCH (21:02)
[2019-11-18 03:15] VITALS: BP 128/80
[2019-11-18] MEDS: IV NORMAL SALINE 1000ML BAG 1,000 ML IV SCH (03:20)
[2019-11-18] MEDS: LEVOTHYROXINE 75 MCG TABLET PO SCH (05:57)
[2019-11-18] MEDS: PANTOPRAZOLE 40 MG TABLET.DR. PO SCH (05:57)
--- NOTE | 2019-11-18 06:32 | EKG ---
[facility] [address] [place] [address] Test Date: 2019-11-15 Test Time: 17:20:51 Pat Name: JUANY STEARNS Department: Room: Gender: F Forensic Science Technician: : 1940 Requested By: RUBY MONIQUE Order Number: [id number] Reading MD: Measurements Intervals [place] Rate: 91 P: OR: QRS: -42 QRSD: 90 T: 104 QT: 370 QTc: 457 Interpretive Statements IRREGULAR RHYTHM, NO P-WAVE FOUND ABNORMAL LEFT AXIS DEVIATION LEFT ANTERIOR FASCICULAR BLOCK T ABNORMALITY IN HIGH LATERAL LEADS ABNORMAL ECG RI6.02 No previous ECG available for comparison
[2019-11-18 07:00] VITALS: BP 146/72
--- NOTE | 2019-11-18 08:30 | PDOC ---
PULMONARY PROGRESS NOTES Subjective Patient not short of air no pleuritic type discomfort Vitals Vital Signs Date Time Temp Pulse Resp B/P (MAP) Pulse Ox O2 Delivery O2 Flow Rate FiO2 11/18/19 07:00 97.7 66 16 146/72 (96) 93 Room Air 97.7 ROS: No Nausea, No Chest Pain, No Abdominal Pain General: Alert Lungs: Other Cardiovascular: S1 Abdomen: Soft Extremities: No Edema Skin: Warm Labs Laboratory Tests Test 11/16/19 11:53 11/16/19 17:50 11/17/19 04:15 11/17/19 15:00 Troponin I Quantitative 0.076 ng/mL (0.000-0.055) Triglycerides Level 84 mg/dL (0-150) Cholesterol Level 124 mg/dL (0-200) LDL Cholesterol, Calculated 58 mg/dL (0-100) VLDL Cholesterol, Calculated 17 mg/dL (0-40) Non-HDL Cholesterol Calculated 75 mg/dL (0-129) HDL Cholesterol 49 mg/dL (40-60) Cholesterol/HDL Ratio 2.5 Thyroid Stimulating Hormone (TSH) 0.944 uIU/mL (0.358-3.74) Coronavirus (COVID-19)(PCR) Negative (NEGATIVE) White Blood Count 11.2 x10^3/uL (4.0-11.0) Red Blood Count 3.50 x10^6/uL (3.50-5.40) Hemoglobin 10.3 g/dL (12.0-15.5) Hematocrit 31.3 % (36.0-47.0) Mean Corpuscular Volume 89 fL (79-100) Mean Corpuscular Hemoglobin 29 pg (25-35) Mean Corpuscular Hemoglobin Concent 33 g/dL (31-37) Red Cell Distribution Width 15.6 % (11.5-14.5) Platelet Count 311 x10^3/uL (140-400) Neutrophils (%) (Auto) 83 % (31-73) Lymphocytes (%) (Auto) 10 % (24-48) Monocytes (%) (Auto) 6 % (0-9) Eosinophils (%) (Auto) 1 % (0-3) Basophils (%) (Auto) 0 % (0-3) Neutrophils # (Auto) 9.4 x10^3/uL (1.8-7.7) Lymphocytes # (Auto) 1.1 x10^3/uL (1.0-4.8) Monocytes # (Auto) 0.6 x10^3/uL (0.0-1.1) Eosinophils # (Auto) 0.1 x10^3/uL (0.0-0.7) Basophils # (Auto) 0.0 x10^3/uL (0.0-0.2) Sodium Level 138 mmol/L (136-145) Potassium Level 3.9 mmol/L (3.5-5.1) Chloride Level 104 mmol/L (98-107) Carbon Dioxide Level 26 mmol/L (21-32) Anion Gap 8 (6-14) Blood Urea Nitrogen 32 mg/dL (7-20) Creatinine 1.7 mg/dL (0.6-1.0) Estimated GFR (Cockcroft-Gault) 28.9 Glucose Level 107 mg/dL (70-99) Calcium Level 8.6 mg/dL (8.5-10.1) D-Dimer (Karen) 0.98 ug/mlFEU (0.00-0.50) Laboratory Tests Test 11/17/19 15:00 D-Dimer (Karen) 0.98 ug/mlFEU (0.00-0.50) Medications Active Scripts Medications Dose Route/Sig Max Daily Dose Days Date Category [Smz/Tmp 800/160MG] 1 TAB Tablet 0.5 Tab PO BID 5 11/17/19 Rx Zinc Sulfate 220 Mg Tablet 1 Tab PO DAILY 30 11/16/19 Reported Multi Vitamin Daily (Multivitamin) 1 Each Tablet 1 Tab PO DAILY 30 11/16/19 Reported Vesicare (Solifenacin Succinate) 10 Mg Tablet 1 Tab PO DAILY 30 11/16/19 Reported Probiotic (Lactobacillus Acidophilus) 1 Each Capsule 1 Each PO DAILY 11/16/19 Reported Omeprazole 40 Mg Capsule.dr 1 Cap PO DAILY 11/16/19 Reported Nystatin 100,000 Unit/1 Ml Oral.susp 5 Ml PO QID 11/16/19 Reported Metoprolol Tartrate 25 Mg Tablet 1 Tab PO BID 11/16/19 Reported Atorvastatin Calcium 20 Mg Tablet 1 Tab PO DAILY 11/16/19 Reported Vitamin C (Ascorbic Acid) 100 Mg Tablet 250 Mg PO DAILY 30 11/16/19 Reported Vitamin D2 (Ergocalciferol (Vitamin D2)) 1,250 Mcg Capsule 1,250 Mcg PO Q7DAYS 11/16/19 Reported B-12 (Cyanocobalamin (Vitamin B-12)) 1,000 Mcg Tablet.er 1 Tab PO DAILY 30 11/16/19 Reported Clopidogrel (Clopidogrel Bisulfate) 75 Mg Tablet 1 Tab PO DAILY 11/16/19 Reported Docusate Sodium 100 Mg Capsule 1 Cap PO BID 7 11/16/19 Reported Hydrocodone-Apap 7.5-325 (Hydrocodone Bit/Acetaminophen) 1 Each Tablet 1 Tab PO PRN Q6HRS PRN 01/12/18 Reported Aspirin 81 Mg Tab.chew 1 Tab PO DAILY 12/03/17 Reported Gabapentin 100 Mg Capsule 100 Mg PO TID 12/03/17 Reported Colestid (Colestipol Hcl) 1 Gm Tablet 1 Gm PO BID 12/03/17 Reported Prednisone 5 Mg Tablet 10 Mg PO DAILY 12/03/17 Reported Hydroxychloroquine Sulfate 200 Mg Tablet 1 Tab PO BID 02/08/14 Reported Folic Acid 1 Mg Tablet 1 Mg PO DAILY 07/01/13 Reported Meclizine Hcl 25 Mg Tablet 25 Mg PO TID 07/01/13 Reported Levothyroxine Sodium 75 Mcg Tablet 75 Mcg PO DAILY 07/01/13 Reported Impression . IMPRESSION: 1. Chest pain with intermediate perfusion scan, chest pain is now resolved. 2. Rheumatoid arthritis, wheelchair bound. 3. Diabetes mellitus. 4. Coronary artery disease. 5. Elevated troponin. 6. History of atrial fibrillation. 7. Acute kidney injury. 8. Chronic kidney disease. Discussion clinical suspicion for PE is low Echo report <Conclusion> The left ventricular systolic function is normal. The Ejection Fraction is 55%. There is normal LV segmental wall motion. There appears to be left to right interatrial shunt on color doppler imaging. Mild aortic regurgitation. Mild to moderate mitral regurgitation. Mild tricuspid regurgitation with an estimated PAP of 58 mmHg. There is no evidence of significant pericardial effusion. Plan . Echo noted, pulmonary artery pressure is elevated D-dimer is mildly elevated Unable to perform CT angiogram Considering negative venous Dopplers of the lower extremities I do not recommend anticoagulation NORAH GOMEZ MD Nov 18, 2019 08:30
[2019-11-18] MEDS: HYDROXYCHLOROQUINE 200 MG TABLET PO SCH ×2 (08:42→20:39)
[2019-11-18] MEDS: CLOPIDOGREL BISULFATE 75 MG TABLET PO SCH (08:42)
[2019-11-18] MEDS: DOCUSATE SODIUM 100 MG CAPSULE. PO SCH ×2 (08:42→20:39)
[2019-11-18] MEDS: GABAPENTIN 100 MG CAPSULE. PO SCH ×3 (08:42→20:40)
[2019-11-18] MEDS: LACTOBACILLUS RHAMNOSUS GG 1 CAPSULE. PO SCH ×2 (08:42→20:39)
[2019-11-18] MEDS: ZINC SULFATE 220 MG CAPSULE. PO SCH (08:43)
[2019-11-18] MEDS: ASPIRIN CHEWABLE 81 MG TABLET. PO SCH (08:43)
[2019-11-18] MEDS: METOPROLOL TART IMMED RELEASE 25 MG TABLET. PO SCH ×2 (08:43→20:40)
[2019-11-18] MEDS: predniSONE 10 MG TABLET PO SCH (08:43)
[2019-11-18] MEDS: FOLIC ACID 1 MG TABLET. PO SCH (08:43)
[2019-11-18] MEDS: SMZ/TMP 800/160MG TABLET. PO SCH ×2 (09:40→20:39)
--- NOTE | 2019-11-18 10:33 | PDOC ---
BIRGIT FAY APRN 11/18/19 1033: CARDIO Progress Notes Date and Time Date of Service 11/18/19 Time of Evaluation 1050 Subjective Subjective: No Chest Pain, No shortness of breath, No Palpitations Vitals Vitals Vital Signs Date Time Temp Pulse Resp B/P (MAP) Pulse Ox O2 Delivery O2 Flow Rate FiO2 11/18/19 08:43 70 146/72 11/18/19 07:00 97.7 16 93 Room Air 97.7 Weight Weight [ ] Input and Output Intake and Output Intake and Output 11/18/19 07:00 Intake Total 880 ml Output Total 1800 ml Balance -920 ml Intake Oral 880 ml Output Urine Total 1800 ml Laboratory Labs Laboratory Tests Test 11/17/19 15:00 D-Dimer (Karen) 0.98 ug/mlFEU (0.00-0.50) Physical Exam HEENT: Neck Supple W Full Motion Chest: Symmetric Heart: irregularly irregular (AFIB) Abdomen: Soft N/T Extremities: No Edema Neurology: alert, oriented, follow commands Assessment Assessment 1. Permanent atrial fibrillation s/p LAAO 2. Hypertension 3. Hyperlipidemia 4. Chronic diastolic CHF 5. Atypical chest pain - likely MSK 6. Mild troponin elevation; peak 0.109. Likely type II, demand ischemia 7. LAURYN Recommendations Metoprolol for rate control ASA/Plavix, statin therapy Echo pending to assess LV function, presence of RV strain If Eliquis warranted by pulmonary, would discontinue ASA therapy and continue Plavix Follow up with primary adult literacy instructor, Dr. Cifuentes upon discharge. Justicifation of Admission Dx: Justifications for Admission: Justification of Admission Dx: Yes [place]: Acute NSTEMI (jacquelin tropnin) RAMAN VILLARREAL MD 11/19/19 0901: CARDIO Progress Notes Plan Plan Late entry for 11/18/2019 Patient seen and examined. Agree with above nurse practitioner note. No significant right ventricular strain by echo, there is likely chronic pulmonary hypertension. Echocardiogram is not of significant value in ruling out pulmonary embolus in a patient with prior COPD therefore would not rely on this findings to determine anticoagulation. BIRGIT FAY APRN Nov 18, 2019 10:33 RAMAN VILLARREAL MD Nov 19, 2019 09:01
[2019-11-18] MEDS: COLESTIPOL HCL 1 GM TABLET PO SCH ×2 (10:35→21:45)
--- NOTE | 2019-11-18 10:53 | PN ---
DATE: 11/18/2019 SUBJECTIVE: The patient is an 79-year-old female patient who was admitted because of left-sided chest pain. She was found to have slightly elevated troponin, felt to be due to type 2 demand ischemia. She has had the Watchman procedure, but she was not on any anticoagulation now. Her D-dimer was elevated as requested by the pearl peller; however, we could not do CT angio because of impaired kidney function and she has had perfusion lung scan without ventilation, which read as intermediate probability for pulmonary embolism and the radiologist recommended ultrasound of bilateral lower extremities. She has had bilateral lower extremity venous Doppler ultrasound, which showed no evidence of deep vein thrombosis. The pearl peller also recommended doing an echocardiogram, which was done, but has not read yet. PHYSICAL EXAMINATION: GENERAL: When I examined her this morning, she was sitting at the edge of the bed comfortably in no apparent respiratory distress. She was pale, but no jaundice, cyanosis or thyromegaly. No jugular venous distention. No limb edema. VITAL SIGNS: Her heart rate was 66, blood pressure was 146/72, temperature was 97.7, respiratory rate was 16, and oxygen saturation was 93% on room air. HEAD, EYES, EARS, NOSE AND THROAT: Showed normocephalic, atraumatic. NECK: Supple. HEART: Showed normal first and second heart sounds. No gallop, rub or murmur. CHEST: Clear to auscultation. No crepitation or rhonchi. ABDOMEN: Distended, soft, nontender. NEUROLOGIC: She is awake, alert, responding appropriately. All cranial nerves intact. She apparently is mostly bedbound, wheelchair bound. Her intake was 500, output was 1200. LABORATORY DATA: As of yesterday, her white cell count was 11,200, hemoglobin 10, hematocrit 31, MCV 89 and platelet count 311,000. Her chemistry showed a serum sodium 138, potassium 3.9, chloride 104, bicarbonate 26, anion gap of 8, BUN 32, creatinine 1.7, estimated GFR was 29 mL per minute. Her glucose 107, calcium was 8.6. Her troponin was slightly elevated; however, it was felt to be secondary to type 2 demand ischemia. ASSESSMENT: 1. Chest wall pain with slightly elevated troponin, felt to be type 2 demand ischemia. 2. Chronic atrial fibrillation for which she had a Watchman procedure. She is not on any anticoagulation now. 3. Rheumatoid arthritis. 4. Hypertension. 5. Hyperlipidemia. 6. Hypothyroidism. 7. Chronic kidney disease. PLAN: To await the result of the echocardiogram and a decision by the pearl peller to anticoagulate the patient. Her D-dimer was slightly elevated; however, she has only perfusion scan without ventilation and we could not do the CT angio of the chest given her impaired kidney function. Bilateral lower extremity venous Doppler ultrasound was negative. LISY HOWARD MD DR: JIMMY/duncan JOB#: [id number] / [id number]
[2019-11-18 11:00] VITALS: BP 137/81
--- NOTE | 2019-11-18 12:48 | NUR ---
SS following for discharge planning. SS reviewed pt chart and discussed with pt RN. Pt is from home with caregiver and is currently on room air. Pt has motorized wheelchair at home. Cardiology following. Pt having ECHO today. SS will continue to follow for discharge planning.
--- NOTE | 2019-11-18 14:04 | CARD ---
MR#: [id number] Date of Study: 11/18/2019 Ordering Physician: RAMAN VILLARREAL, Referring Physician: RAMAN VILLARREAL, Tech: Jesusita Roldan APPROVED REPORT EXAM: Two-dimensional and M-mode echocardiogram with Doppler and color Doppler. Other Information Quality : AverageHR: 75bpm INDICATION Chest Pain 2D DIMENSIONS RVDd3.6 (2.9-3.5cm)Left Atrium(2D)4.4 (1.6-4.0cm) IVSd1.3 (0.7-1.1cm)Aortic Root(2D)3.0 (2.0-3.7cm) LVDd3.7 (3.9-5.9cm)LVOT Diameter1.9 (1.8-2.4cm) PWd1.1 (0.7-1.1cm)LVDs2.6 (2.5-4.0cm) FS (%) 28.7 %SV32.4 ml LVEF(%)56.1 (>50%) Aortic Valve AoV Peak Bart.211.0cm/sAoV VTI38.2cm AO Peak GR.17.8mmHgLVOT Peak Bart.149.1cm/s LVOT VTI 27.32cmAO Mean GR.9mmHg STACI (VMAX)1.24yc7NIM (VTI)2.04cm2 AI P 1/2 [id number] Mitral Valve MV E Peak Gr.85mmHgMV E Mean Gr.2mmHg Pulmonary Valve PV Peak Krnhfnvk840.7cm/sPV Peak Grad.4mmHg Tricuspid Valve TR P. Leorkiao777zm/sRAP [id number] TR Peak Gr.55liBjZPXJ50ufWh LEFT VENTRICLE The left ventricle is normal size. There is mild concentric left ventricular hypertrophy. The left ve ntricular systolic function is normal. The Ejection Fraction is 55%. There is normal LV segmental wal l motion. RIGHT VENTRICLE The right ventricle is normal size. There is normal right ventricular wall thickness. Systolic functi on is mildly reduced. ATRIA The left atrium is moderately dilated. The right atrium is mildly dilated. There appears to be left t o right interatrial shunt on color doppler imaging. AORTIC VALVE The aortic valve is thickened but opens well. Doppler and Color Flow revealed mild aortic regurgitati on. Calculated aortic valve area is 2.2 cm2 with maximum pressure gradient of 19 mmHg and mean pressu re gradient of 10 mmHg. There is no significant aortic valvular stenosis. MITRAL VALVE Restricted movement of posterior mitral leaflet. There is no evidence of mitral valve prolapse. There is no mitral valve stenosis with a mean gradient of 1.8 mmHg. Doppler and Color-flow revealed mild t o moderate mitral regurgitation. TRICUSPID VALVE The tricuspid valve is normal in structure and function. Doppler and Color Flow revealed mild tricusp id regurgitation with an estimated PAP of 58 mmHg. There is no tricuspid valve stenosis. PULMONIC VALVE The pulmonic valve is not well visualized. Doppler and Color Flow revealed trace pulmonic valvular re gurgitation. GREAT VESSELS The aortic root is normal in size. The ascending aorta is normal in size. The IVC is dilated. PERICARDIAL EFFUSION There is no evidence of significant pericardial effusion. Critical Notification Critical Value: No <Conclusion> The left ventricular systolic function is normal. The Ejection Fraction is 55%. There is normal LV segmental wall motion. There appears to be left to right interatrial shunt on color doppler imaging. Mild aortic regurgitation. Mild to moderate mitral regurgitation. Mild tricuspid regurgitation with an estimated PAP of 58 mmHg. There is no evidence of significant pericardial effusion. Signed by : Rene Patterson, Electronically Approved : 11/18/2019 14:04:11
[2019-11-18] MEDS: ENOXAPARIN 30 MG/0.3 ML SYRINGE. SQ SCH (14:25)
[2019-11-18 15:00] VITALS: BP 158/85
[2019-11-18 19:00] VITALS: BP 108/63
--- NOTE | 2019-11-18 19:20 | NUR ---
Assessment completed vss poc explained pt denied pain will resume care and continue to monitor pt. Call light in reach.
[2019-11-18] MEDS: ATORVASTATIN CALCIUM 20 MG TABLET PO SCH (20:40)
[2019-11-18 22:52] VITALS: BP 95/50
[2019-11-19 02:52] VITALS: BP 104/71
[2019-11-19] MEDS: LEVOTHYROXINE 75 MCG TABLET PO SCH (06:00)
[2019-11-19] MEDS: PANTOPRAZOLE 40 MG TABLET.DR. PO SCH ×2 (06:15→07:30)
[2019-11-19 07:00] VITALS: BP 141/85
[2019-11-19] MEDS: HYDROcodone/APAP 7.5/325MG 1 TAB TABLET PO PRN (07:18)
[2019-11-19] MEDS: CLOPIDOGREL BISULFATE 75 MG TABLET PO SCH (08:22)
[2019-11-19] MEDS: GABAPENTIN 100 MG CAPSULE. PO SCH ×2 (08:22→13:40)
[2019-11-19] MEDS: METOPROLOL TART IMMED RELEASE 25 MG TABLET. PO SCH (08:22)
[2019-11-19] MEDS: FOLIC ACID 1 MG TABLET. PO SCH (08:23)
[2019-11-19] MEDS: LACTOBACILLUS RHAMNOSUS GG 1 CAPSULE. PO SCH (08:23)
[2019-11-19] MEDS: SMZ/TMP 800/160MG TABLET. PO SCH (08:23)
[2019-11-19] MEDS: ASPIRIN CHEWABLE 81 MG TABLET. PO SCH (08:23)
[2019-11-19] MEDS: predniSONE 10 MG TABLET PO SCH (08:23)
[2019-11-19] MEDS: HYDROXYCHLOROQUINE 200 MG TABLET PO SCH (08:23)
[2019-11-19] MEDS: ZINC SULFATE 220 MG CAPSULE. PO SCH (08:23)
[2019-11-19] MEDS: DOCUSATE SODIUM 100 MG CAPSULE. PO SCH (08:23)
--- NOTE | 2019-11-19 09:12 | PDOC ---
PULMONARY PROGRESS NOTES Subjective Patient not short of air no pleuritic type discomfort Vitals Vital Signs Date Time Temp Pulse Resp B/P (MAP) Pulse Ox O2 Delivery O2 Flow Rate FiO2 11/19/19 08:22 72 104/71 11/19/19 07:00 97.8 16 96 Room Air 97.8 11/18/19 08:00 2.0 ROS: No Nausea, No Chest Pain, No Abdominal Pain General: Alert Lungs: Other Cardiovascular: S1 Abdomen: Soft Extremities: No Edema Skin: Warm Labs Laboratory Tests Test 11/17/19 15:00 D-Dimer (Karen) 0.98 ug/mlFEU (0.00-0.50) Medications Active Scripts Medications Dose Route/Sig Max Daily Dose Days Date Category [Smz/Tmp 800/160MG] 1 TAB Tablet 0.5 Tab PO BID 5 11/17/19 Rx Zinc Sulfate 220 Mg Tablet 1 Tab PO DAILY 30 11/16/19 Reported Multi Vitamin Daily (Multivitamin) 1 Each Tablet 1 Tab PO DAILY 30 11/16/19 Reported Vesicare (Solifenacin Succinate) 10 Mg Tablet 1 Tab PO DAILY 30 11/16/19 Reported Probiotic (Lactobacillus Acidophilus) 1 Each Capsule 1 Each PO DAILY 11/16/19 Reported Omeprazole 40 Mg Capsule.dr 1 Cap PO DAILY 11/16/19 Reported Nystatin 100,000 Unit/1 Ml Oral.susp 5 Ml PO QID 11/16/19 Reported Metoprolol Tartrate 25 Mg Tablet 1 Tab PO BID 11/16/19 Reported Atorvastatin Calcium 20 Mg Tablet 1 Tab PO DAILY 11/16/19 Reported Vitamin C (Ascorbic Acid) 100 Mg Tablet 250 Mg PO DAILY 30 11/16/19 Reported Vitamin D2 (Ergocalciferol (Vitamin D2)) 1,250 Mcg Capsule 1,250 Mcg PO Q7DAYS 11/16/19 Reported B-12 (Cyanocobalamin (Vitamin B-12)) 1,000 Mcg Tablet.er 1 Tab PO DAILY 30 11/16/19 Reported Clopidogrel (Clopidogrel Bisulfate) 75 Mg Tablet 1 Tab PO DAILY 11/16/19 Reported Docusate Sodium 100 Mg Capsule 1 Cap PO BID 7 11/16/19 Reported Hydrocodone-Apap 7.5-325 (Hydrocodone Bit/Acetaminophen) 1 Each Tablet 1 Tab PO PRN Q6HRS PRN 01/12/18 Reported Aspirin 81 Mg Tab.chew 1 Tab PO DAILY 12/03/17 Reported Gabapentin 100 Mg Capsule 100 Mg PO TID 12/03/17 Reported Colestid (Colestipol Hcl) 1 Gm Tablet 1 Gm PO BID 12/03/17 Reported Prednisone 5 Mg Tablet 10 Mg PO DAILY 12/03/17 Reported Hydroxychloroquine Sulfate 200 Mg Tablet 1 Tab PO BID 02/08/14 Reported Folic Acid 1 Mg Tablet 1 Mg PO DAILY 07/01/13 Reported Meclizine Hcl 25 Mg Tablet 25 Mg PO TID 07/01/13 Reported Levothyroxine Sodium 75 Mcg Tablet 75 Mcg PO DAILY 07/01/13 Reported Impression . IMPRESSION: 1. Chest pain with intermediate perfusion scan, chest pain is now resolved. 2. Rheumatoid arthritis, wheelchair bound. 3. Diabetes mellitus. 4. Coronary artery disease. 5. Elevated troponin. 6. History of atrial fibrillation. 7. Acute kidney injury. 8. Chronic kidney disease. Discussion clinical suspicion for PE is low Echo report <Conclusion> The left ventricular systolic function is normal. The Ejection Fraction is 55%. There is normal LV segmental wall motion. There appears to be left to right interatrial shunt on color doppler imaging. Mild aortic regurgitation. Mild to moderate mitral regurgitation. Mild tricuspid regurgitation with an estimated PAP of 58 mmHg. There is no evidence of significant pericardial effusion. Plan . Okay to discharge I do not recommend anticoagulation Patient to follow-up in the office, possible sleep study, PFTs. And possible repeat VQ scan in the near future Echo noted, pulmonary artery pressure is elevated D-dimer is mildly elevated Unable to perform CT angiogram Considering negative venous Dopplers of the lower extremities I do not recommend anticoagulation NORAH GOMEZ MD Nov 19, 2019 09:12
[2019-11-19 09:57] LABS: BASO % 0 % (0-3); EOS # 0.2 x10^3/uL (0.0-0.7); EOS % 2 % (0-3); HEMATOCRIT 29.7 % (36.0-47.0); HEMOGLOBIN 9.8 g/dL (12.0-15.5); LYMPH # 1.7 x10^3/uL (1.0-4.8); LYMPH % 13 % (24-48); MEAN CORPUSCULAR HEMOGLOBIN 30 pg (25-35); MEAN CORPUSCULAR HGB CONC 33 g/dL (31-37); MEAN CORPUSCULAR VOLUME 91 fL (79-100); MONO # 1.1 x10^3/uL (0.0-1.1); MONO % 9 % (0-9); NEUT # 9.4 x10^3/uL (1.8-7.7); NEUT % 76 % (31-73); PLATELET COUNT 282 x10^3/uL (140-400); RED BLOOD COUNT 3.26 x10^6/uL (3.50-5.40); RED CELL DISTRIBUTION WIDTH 15.7 % (11.5-14.5); WHITE BLOOD COUNT 12.4 x10^3/uL (4.0-11.0)
[2019-11-19 10:05] LABS: ALBUMIN 2.3 g/dL (3.4-5.0); ALBUMIN/GLOBULIN RATIO 0.6 (1.0-1.7); CALCIUM 8.4 mg/dL (8.5-10.1); CREATININE 1.7 mg/dL (0.6-1.0); GFR 28.9; TOTAL BILIRUBIN 0.2 mg/dL (0.2-1.0); TOTAL PROTEIN 6.2 g/dL (6.4-8.2)
[2019-11-19 10:14] LABS: POTASSIUM 4.1 mmol/L (3.5-5.1)
[2019-11-19] MEDS: COLESTIPOL HCL 1 GM TABLET PO SCH (10:45)
[2019-11-19 11:00] VITALS: BP 113/74
--- NOTE | 2019-11-19 13:02 | PDOC ---
BIRGIT FAY RIVETING MACHINE OPERATOR TAPE CONTROL 11/19/19 1302: CARDIO Progress Notes Date and Time Date of Service 11/19/19 Time of Evaluation 1300 Subjective Subjective: No Chest Pain, No shortness of breath, No Palpitations Vitals Vitals Vital Signs Date Time Temp Pulse Resp B/P (MAP) Pulse Ox O2 Delivery O2 Flow Rate FiO2 11/19/19 11:00 98.0 62 18 113/74 (87) 90 Room Air 98.0 11/19/19 08:00 2.0 Weight Weight [ ] Input and Output Intake and Output Intake and Output 11/19/19 07:00 Intake Total 700 ml Output Total 1400 ml Balance -700 ml Intake Oral 700 ml Output Urine Total 1400 ml # Bowel Movements 1 Laboratory Labs Laboratory Tests Test 11/19/19 04:35 White Blood Count 12.4 x10^3/uL (4.0-11.0) Red Blood Count 3.26 x10^6/uL (3.50-5.40) Hemoglobin 9.8 g/dL (12.0-15.5) Hematocrit 29.7 % (36.0-47.0) Mean Corpuscular Volume 91 fL (79-100) Mean Corpuscular Hemoglobin 30 pg (25-35) Mean Corpuscular Hemoglobin Concent 33 g/dL (31-37) Red Cell Distribution Width 15.7 % (11.5-14.5) Platelet Count 282 x10^3/uL (140-400) Neutrophils (%) (Auto) 76 % (31-73) Lymphocytes (%) (Auto) 13 % (24-48) Monocytes (%) (Auto) 9 % (0-9) Eosinophils (%) (Auto) 2 % (0-3) Basophils (%) (Auto) 0 % (0-3) Neutrophils # (Auto) 9.4 x10^3/uL (1.8-7.7) Lymphocytes # (Auto) 1.7 x10^3/uL (1.0-4.8) Monocytes # (Auto) 1.1 x10^3/uL (0.0-1.1) Eosinophils # (Auto) 0.2 x10^3/uL (0.0-0.7) Basophils # (Auto) 0.0 x10^3/uL (0.0-0.2) Sodium Level 141 mmol/L (136-145) Potassium Level 4.1 mmol/L (3.5-5.1) Chloride Level 108 mmol/L (98-107) Carbon Dioxide Level 25 mmol/L (21-32) Anion Gap 8 (6-14) Blood Urea Nitrogen 29 mg/dL (7-20) Creatinine 1.7 mg/dL (0.6-1.0) Estimated GFR (Cockcroft-Gault) 28.9 BUN/Creatinine Ratio 17 (6-20) Glucose Level 83 mg/dL (70-99) Calcium Level 8.4 mg/dL (8.5-10.1) Total Bilirubin 0.2 mg/dL (0.2-1.0) Aspartate Amino Transf (AST/SGOT) 25 U/L (15-37) Alanine Aminotransferase (ALT/SGPT) 32 U/L (14-59) Alkaline Phosphatase 111 U/L (46-116) Total Protein 6.2 g/dL (6.4-8.2) Albumin 2.3 g/dL (3.4-5.0) Albumin/Globulin Ratio 0.6 (1.0-1.7) Physical Exam HEENT: Neck Supple W Full Motion Chest: Symmetric Heart: irregularly irregular (AFIB- rate controlled) Abdomen: Soft N/T Extremities: No Edema Neurology: alert, oriented, follow commands Assessment Assessment 1. Permanent atrial fibrillation s/p LAAO 2. Hypertension 3. Hyperlipidemia 4. Chronic diastolic CHF 5. Atypical chest pain - likely MSK 6. Mild troponin elevation; peak 0.109. Likely type II, demand ischemia 7. LAURYN Recommendations Metoprolol for rate control OAC not warranted per pulmonary. Continue ASA/Plavix therapy Okay to discharge from a CV standpoint. Follow up with primary carpet inspector finished, Dr. Cifuentes Justicifation of Admission Dx: Justifications for Admission: Justification of Admission Dx: Yes [place]: Acute NSTEMI (jacquelin antonio) RAMAN VILLARREAL MD 11/19/19 1707: CARDIO Progress Notes Plan Plan Pt. seen and examined. Agree with above WAREHOUSE INVENTORY CLERK note. No new events. Discussed case with primary carpet inspector finished. Thanks BIRGIT FAY APRN Nov 19, 2019 13:02 RAMAN VILLARREAL MD Nov 19, 2019 17:07
--- NOTE | 2019-11-19 14:39 | NUR ---
Discharge Note: JUANY STEARNS [address] [place] [address] Discharge instructions and discharge home medications reviewed with Patient and a copy given. All questions have been answered and understanding verbalized. The following instructions and handouts were given: CP and malnutrition Discontinued IV lines Patient discharged to home with self care via wheelchair
--- NOTE | 2019-11-19 15:38 | DS ---
DATE OF DISCHARGE: HOSPITAL COURSE: The patient is an 79-year-old female patient who was admitted because of left-sided chest pain. She was found to have slightly elevated troponin, felt to be due to type 2 demand ischemia. She has had Watchman procedure. She was not on any anticoagulant. Her D-dimer was elevated as requested by the market specialist; however, we could not do the CT angio because of impaired kidney function. She has had perfusion lung scan without ventilation, which showed intermediate probability of pulmonary embolism. We did actually venous Doppler ultrasound of both lower extremities that were read as negative for deep vein thrombosis. An echocardiogram was recommended by the market specialist and basically showed that the patient's left ventricular systolic function is normal. Ejection fraction is 55%. There is normal left ventricular segmental wall motion. There appears to be [id number] intra-atrial shunt on color Doppler imaging, mild aortic regurgitation, [id number]-ru-[id number] mitral regurgitation, and mild tricuspid regurgitation with an estimated pulmonary artery pressure of 58 mmHg. There is no evidence of significant pericardial effusion. She was seen by the market specialist who did not recommend any anticoagulation. The patient remained stable. She has had no further episode of chest pain or shortness of breath, and a decision was made to discharge her home. PHYSICAL EXAMINATION: GENERAL: When I saw her this morning, she looked pale, somewhat cachectic, but no jaundice, cyanosis, or thyromegaly. No jugular venous distention. No limb edema. VITAL SIGNS: Her heart rate was 71, blood pressure was 141/85, temperature was 97.8, respiratory rate was 16, and oxygen saturation was 96% on room air. HEAD, EYES, EARS, NOSE, AND THROAT: Showed normocephalic and atraumatic. NECK: Supple. HEART: Showed normal first and second heart sounds. No gallop or murmur. CHEST: Clear to auscultation. No crepitation or rhonchi. ABDOMEN: Scaphoid, soft, and nontender. NEUROLOGIC: She was awake, alert, and responding appropriately. All cranial nerves intact. She moves extremities without difficulty. Her intake over the last 24 hours was 1880 and output was 1800. LABORATORY DATA: As of this morning, her white cell count was 12,400, hemoglobin 9.8, hematocrit 30, MCV 91, and platelet count 282,000. Her chemistry showed a serum sodium of 141, potassium 4.1, chloride 108, bicarbonate 25, anion gap of 8, BUN 29, creatinine 1.7, and estimated GFR was 29 mL per minute. Her glucose was 83 and calcium was 8.4. Total bilirubin, AST, ALT, and alkaline phosphatase were normal. Total protein 6.2. Albumin was 2.3. DISCHARGE MEDICATIONS: The patient was discharged home to continue on ascorbic acid 250 mg daily, aspirin 81 mg once a day, atorvastatin calcium 20 mg daily, Plavix 75 mg once a day, colestipol 1 gm twice a day, cyanocobalamin for B12 1000 mcg tablet once a day, Colace 100 mg twice a day, vitamin D2 1250 mcg once a day, folic acid 1 mg daily, gabapentin 100 mg 3 times a day, hydrocodone/APAP 7.5/325 mg one tablet every 6 hours as needed, hydroxychloroquine 200 mg twice a day, lactobacillus acidophilus 1 capsule daily, levothyroxine sodium 75 mcg once a day, meclizine 25 mg 3 times a day, metoprolol tartrate 25 mg twice a day, multivitamin 1 tablet once a day, nystatin suspension 5 mL swish and swallow 4 times a day, omeprazole 40 mg once a day, prednisone 10 mg once a day, VESIcare 10 mg once a day, and zinc sulfate 220 mg once a day. FINAL DISCHARGE DIAGNOSES: 1. Chest wall pain with slightly elevated troponin, felt to be due to type 2 demand ischemia. 2. Chronic atrial fibrillation. She has had a Watchman procedure. She is not on anticoagulation now. 3. Rheumatoid arthritis, clinically quiescent. 4. Hypertension, well controlled. 5. Hyperlipidemia. 6. Hypothyroidism. 7. Chronic kidney disease, stable. LISY HOWARD MD DR: JIMMY/duncan JOB#: [id number] / [id number]
== END 2019-11-19 14:45 | disposition home or self-care (01) | DRG 311 ==
LOC: ER 16:52 → 2 NORTH 18:54 → 6 SOUTH 11-16 19:40 → 2 SOUTH 11-17 15:48
PROVIDERS: ADMIT Internal Medicine; ATTEND Internal Medicine
DX: I24.8 Other forms of acute ischemic heart disease (principal); N17.0 Acute kidney failure with tubular necrosis; I13.0 Hypertensive heart and chronic kidney disease with heart failure and stage 1 through stage 4 chronic kidney disease, or unspecified chronic kidney disease; I50.32 Chronic diastolic (congestive) heart failure; I48.91 Unspecified atrial fibrillation; Z79.01 Long term (current) use of anticoagulants; M06.9 Rheumatoid arthritis, unspecified; E78.5 Hyperlipidemia, unspecified; E03.9 Hypothyroidism, unspecified; N18.9 Chronic kidney disease, unspecified; Z20.828 Contact with and (suspected) exposure to other viral communicable diseases; Z88.8 Allergy status to other drugs, medicaments and biological substances; Z91.040 Latex allergy status; I25.10 Atherosclerotic heart disease of native coronary artery without angina pectoris; E11.22 Type 2 diabetes mellitus with diabetic chronic kidney disease; Z79.4 Long term (current) use of insulin; J44.9 Chronic obstructive pulmonary disease, unspecified; K21.9 Gastro-esophageal reflux disease without esophagitis; Z90.49 Acquired absence of other specified parts of digestive tract
CPT/HCPCS: 36415; 71101; 78580; 80048; 80053; 80061; 80076; 83690; 84443; 84484; 85025; 85379; 85610; 93005; 93306; 93970; A9540; J1650; J3010; J7030; J7512; 99285-25; G0378; U0003-CS

== ENCOUNTER 2020-01-25 06:58 | Emergency (ER) | payer OTHER, MEDICAID ==
[~2020-01-25] VITALS: Ht 149.9 cm; Wt 45.0 kg
[~2020-01-25 06:58] MED LIST changes: +ASCO100T4 PO; +CLOP75TA PO; +CYAN100031 PO; +ERGO500027 PO; +FERR325T14 PO; +LACT1CAP6 PO; +METO25TA4 PO; +MULT-245 PO; +NYST100054 PO; +SOLI10TA2 PO; +Smz/Tmp 800/160MG PO; +ZINC220T3 PO
[2020-01-25] MEDS ORDERED: ACETAMINOPHEN 500 MG TABLET PO ONE (07:15)
[2020-01-25] MEDS ORDERED: CYCLOBENZAPRINE 10 MG TABLET. PO ONE (07:15)
[2020-01-25] MEDS ORDERED: HYDROcodone/APAP 5/325MG 1 TAB TABLET PO ONE (07:15)
--- NOTE | 2020-01-25 07:15 | PHYS DOC ---
Past Medical History Past Medical History: A-Fib, Arthritis, CAD, COPD, Diabetes-Type II, GERD, High Cholesterol, Hypertension, Hypothyroid, NC, UTI Additional Past Medical Histor: esophagitis, hemorrhoids, hyperlipidemia, hiatal hernia, gastroparesis, RA Past Surgical History: Appendectomy, Hysterectomy, Tonsillectomy Additional Past Surgical Histo: cardiac cath, L ROTATOR CUFF Smoking Status: Never Smoker Alcohol Use: None Drug Use: None General Adult HPI: HPI: The history was obtained from the patient and EMS. Patient is a 79-year-old female with PMH multiple comorbidities who presents with a chief complaint of right chest wall and flank pain status post fall. Patient states she stood up to grab something off of her dresser. She states that she thought her electric wheelchair was nearby however she lost her balance. She states that she hit her right side against the dresser and slid down the wall. Denies striking her head or LOC. She was able to stand herself up and get herself back into the wheelchair. Has not tried any medicine prior to arrival. She does not take any blood thinners. She denies any head, neck, or back pain. Notes pain to the right chest wall and right flank. States it is worse with palpation. States she lives at home alone. States she is able to care for herself. No other complaints. Review of Systems: Review of Systems: Constitutional: Denies fever or chills. [] Eyes: Denies change in visual acuity. [] HENT: Denies nasal congestion or sore throat. [] Respiratory: Denies cough or shortness of breath. [] Cardiovascular: Denies chest pain or edema. [] GI: Denies abdominal pain, nausea, vomiting, bloody stools or diarrhea. [] : Denies dysuria. [] Musculoskeletal: Positive for fall Integument: Denies rash. [] Neurologic: Denies headache, focal weakness or sensory changes. [] Endocrine: Denies polyuria or polydipsia. [] Lymphatic: Denies swollen glands. [] Psychiatric: Denies depression or anxiety. [] Heart Score: Risk Factors: Risk Factors: DM, Current or recent (<one month) smoker, HTN, HLP, family history of CAD, obesity. Risk Scores: Score 0 - 3: 2.5% MACE over next 6 weeks - Discharge Home Score 4 - 6: 20.3% MACE over next 6 weeks - Admit for Clinical Observation Score 7 - 10: 72.7% MACE over next 6 weeks - Early Invasive Strategies Allergies: Allergies: Allergies Coded Allergies Type Severity Reaction Last Updated Verified Cephalexin Monohydrate Allergy Intermediate Hives 01/14/18 Yes codeine Allergy Intermediate 02/07/18 Yes latex Allergy Intermediate 05/12/14 Yes Physical Exam: PE: Physical Exam Trauma: Primary Survey: Airway: Intact. Speaks in normal voice and phonation. Breathing: Breath sounds are clear and equal bilaterally. Circulation: Regular rhythm, 2+ and symmetric radial, DP and PT pulses. Disability: GCS on arrival was 15. Pupils 3 mm, ERRL Exposure: Complete exposure obtained and described in detail below. Secondary Survey: General: Awake, alert, appropriate, and in no acute distress HENT: Atraumatic. TMs clear bilaterally, no hemotympanum. No periorbital tenderness or deformity. No obvious craniofacial trauma. Midface is stable. No apparent dental or tongue/oropharyngeal injury. No septal hematoma. Neck: C-spine: no midline tenderness. Without step-off, deformity, abrasion, ecchymosis, or other signs of trauma. Paraspinal musculature with no tenderness and/or hypertonicity. Eyes: Pupils 3 mm ERRL, EOMI grossly, no evidence of ocular trauma, conjunctivae normal Respiratory: CTAB without wheezing, rhonchi, or rales. No distress. Chest wall with moderate right-sided tenderness to palpation. No crepitus, ecchymosis, or flail segment present. Cardiovascular: Regular rhythm without murmurs noted. 2+ and symmetric radial, DP and PT pulses. GI: Soft, non-tender, non-distended Musculoskeletal: T-spine: no midline tenderness. Without step-off, deformity, abrasion, ecchymosis, or other signs of trauma. Paraspinal musculature with no tenderness and/or hypertonicity. L-spine: no midline tenderness. Without step-off, deformity, abrasion, ecchymosis, or other signs of trauma. Paraspinal musculature with no tenderness and/or hypertonicity. RUE: Active ROM, no obvious deformity, no gross weakness or sensory deficits, warm & well-perfused LUE: Active ROM, no obvious deformity, no gross weakness or sensory deficits, warm & well-perfused RLE: Active ROM, no obvious deformity, no gross weakness or sensory deficits, warm & well-perfused LLE: Active ROM, no obvious deformity, no gross weakness or sensory deficits, warm & well-perfused Integument: Without abrasions, contusions, or lacerations. Neurologic: GCS on arrival as noted above. No obvious focal motor or sensory deficits on examination. Gait not assessed due to acuity of trauma assessment. Current Patient Data: Vital Signs: Vital Signs Date Time Temp Pulse Resp B/P (MAP) Pulse Ox O2 Delivery O2 Flow Rate FiO2 01/25/20 07:10 97.9 60 18 189/86 (120) 96 Room Air 97.9 EKG: EKG: [] Radiology/Procedures: Radiology/Procedures: [facility] [address] [place] [address] IMAGING REPORT Signed PATIENT: JUANY STEARNSCOUNT: [id number] : 1940 LOCATION: ER AGE: 79 SEX: F EXAM STATUS: REG ER ORD. PHYSICIAN: VALERIA ACOSTA DO REASON: elbow pain s/p fall PROCEDURE: ELBOW RIGHT 3V Right elbow 3 views. HISTORY: Pain after a fall 3 views were taken of the right elbow. An acute fracture is not identified. There are joint bodies anterior to the distal humerus. There are mild arthritic changes. Fat pads are not definitely displaced. IMPRESSION: 1. Arthritis right elbow with joint bodies. 2. No acute fracture. Electronically signed by: Je Jacob MD (01/25/2020 8:06 AM) [id number] DICTATED and SIGNED BY: JE JACOB MD DATE: 01/25/20 0806 [facility] [address] [place] [address] IMAGING REPORT Signed PATIENT: JUANY STEARNSCOUNT: [id number] : 1940 LOCATION: ER AGE: 79 SEX: F EXAM STATUS: REG ER ORD. PHYSICIAN: TANQUARY,VALERIA H DO REASON: fall. right chest wall and flank pain PROCEDURE: CT CHEST ABDOMEN PELVIS WO EXAM: CT Chest, Abdomen, and Pelvis without IV contrast INDICATION: Reason: fall. right chest wall and flank pain / Spl. Instructions: / History: TECHNIQUE: Multi-detector row CT images were acquired from the thoracic inlet through the ischial tuberosities without the use of IV contrast. Sagittal and coronal images were acquired from the transaxial data. All CT scans performed at this facility utilize dose optimization techniques as appropriate to the exam, including the following: Automated exposure control and adjustment of the mA and/or KV according to patient size (this includes techniques or standardized protocols for targeted exams where dose is indication/reason for exam). ORAL CONTRAST: Not administered COMPARISON: Noncontrast abdomen pelvis CT of 12/02/2017 FINDINGS: The absence of IV contrast limits evaluation of soft tissue pathology. CHEST: CARDIOVASCULAR: Enlarged heart with multivessel coronary calcifications and calcifications of the aortic valve. No pericardial effusion. There is a left atrial occlusion device. The thoracic aorta is normal in caliber show scattered calcifications without intramural hematoma. No noncontrast CT findings suspicious for aortic injury. MEDIASTINUM & GENE: No adenopathy or masses. LUNGS: No pulmonary infiltrate, nodule, or other focal abnormality. There are mild left basilar atelectatic changes. PLEURAL SPACE: No pleural effusions or pneumothorax. OSSEOUS & SOFT TISSUE: Left reverse total shoulder arthroplasty. Advanced right glenohumeral degenerative arthropathy with cephalad migration of the humeral head to abut the acromion, consistent with chronic right rotator cuff tear. Metallic radiopaque foreign body abutting the pleura above the right first rib and the axilla could reflect a surgical clip. The right first rib is surgically absent. There are spinal degenerative changes. ABDOMEN/PELVIS: LIVER: Mild hypertrophy of the left hepatic lobe, nonspecific. No liver masses or nodular contour. BILIARY SYSTEM: Gallbladder is unremarkable. Bile ducts are not dilated. PANCREAS: Mildly atrophic. Otherwise unremarkable. SPLEEN: Unremarkable ADRENALS: Unremarkable KIDNEYS & URETERS: Unremarkable BLADDER: There is marked urinary bladder distention without wall thickening. No filling defects identified. REPRODUCTIVE ORGANS: Nonvisualized uterus and ovaries, suggesting previous hysterectomy. GASTROINTESTINAL: Moderate stool throughout the large bowel in a pattern suggesting constipation. No findings of bowel obstruction, perforation or acute inflammation. The appendix is not well seen but there are no findings suggesting acute appendicitis MESENTERY/PERITONEUM/RETROPERITONEUM: Unremarkable VASCULAR: Extensive atherosclerotic calcifications in the abdominal aorta. No aneurysm. LYMPH NODES: No adenopathy OSSEOUS & SOFT TISSUES: Osteopenia and exaggeration lumbar lordosis with multilevel lumbar degenerative spondylosis but no acute fracture or aggressive appearing osseous lesions. IMPRESSION: No acute traumatic findings on noncontrast CT of the chest, abdomen, and pelvis. Numerous post surgical and degenerative changes in the skeletal and vascular systems as described. Correlate clinically for any evidence of urinary retention and constipation. Electronically signed by: Diallo Duncan MD (01/25/2020 8:09 AM) [facility] [place] DICTATED and SIGNED BY: DIALLO DUNCAN MD DATE: 01/25/20808 [] Course & Med Decision Making: Course & Med Decision Making Pertinent Labs and Imaging studies reviewed. (See chart for details) [] Patient is a very pleasant 79-year-old female presents with chief complaint of right flank pain status post non-syncopal fall. Initial vital signs unremarkable. Exam noted above. CT imaging of the chest abdomen pelvis reveals no acute traumatic abnormality including rib fractures. Plain film imaging of the right elbow was obtained reveals no acute osseous abnormality. She does have full range of motion of the right elbow without difficulty. Her symptoms are well controlled in the emergency department. She does not take any blood thinners. Overall I do feel she is appropriate for discharge home. Patient is requesting this. She does live by herself and states that she has no concerns for her ability to care for herself. States she her electric wheelchair as her mode of transportation to get groceries at home. Strict return precautions were discussed and understood. She was instructed to follow-up with her primary care physician in the next 2 to 3 days. She states she has an appointment with her primary care physician in 6 days. I encouraged her to keep this appointment. She was encouraged to use [id number] pain medications as well as her home [place] for pain relief. Patient stable for discharge home at this time. Janeon Disclaimer: Cate Disclaimer: This electronic medical record was generated, in whole or in part, using a voice recognition dictation system. Departure Departure Impression: Primary Impression: Fall Qualified Codes: W19.XXXA - Unspecified fall, initial encounter Additional Impressions: Right flank pain Skin tear of elbow without complication Qualified Codes: S51.011A - Laceration without foreign body of right elbow, initial encounter Disposition: 01 HOME, SELF-CARE Condition: STABLE Referrals: NICOLLE WHITE MD (PCP) Patient Instructions: Fall Prevention and Home Safety Scripts Lidocaine (Lidocaine) 1 Each Adh..patch 1 EACH TP DAILY PRN for PAIN, #6 PATCH 12 hours on, 12 hours off Prov: VALERIA ACOSTA DO 01/25/20 Justicifation of Admission Dx: Justifications for Admission: Justification of Admission Dx: N/A NC: Acute NSTEMI VALERIA ACOSTA DO Jan 25, 2020 07:15
[2020-01-25] MEDS ORDERED: DIPH,PERTUSS(ACELL),TET VAC/PF 0.5 ML SYRINGE. VAX IM ONE ×2 (07:40→07:45)
--- NOTE | 2020-01-25 08:09 | RAD ---
Right elbow 3 views. HISTORY: Pain after a fall 3 views were taken of the right elbow. An acute fracture is not identified. There are joint bodies anterior to the distal humerus. There are mild arthritic changes. Fat pads are not definitely displaced. IMPRESSION: 1. Arthritis right elbow with joint bodies. 2. No acute fracture. Electronically signed by: Je Jacob MD (01/25/2020 8:06 AM) [id number]
--- NOTE | 2020-01-25 08:12 | RAD ---
EXAM: CT Chest, Abdomen, and Pelvis without IV contrast INDICATION: Reason: fall. right chest wall and flank pain / Spl. Instructions: / History: TECHNIQUE: Multi-detector row CT images were acquired from the thoracic inlet through the ischial tuberosities without the use of IV contrast. Sagittal and coronal images were acquired from the transaxial data. All CT scans performed at this facility utilize dose optimization techniques as appropriate to the exam, including the following: Automated exposure control and adjustment of the mA and/or KV according to patient size (this includes techniques or standardized protocols for targeted exams where dose is indication/reason for exam). ORAL CONTRAST: Not administered COMPARISON: Noncontrast abdomen pelvis CT of 12/02/2017 FINDINGS: The absence of IV contrast limits evaluation of soft tissue pathology. CHEST: CARDIOVASCULAR: Enlarged heart with multivessel coronary calcifications and calcifications of the aortic valve. No pericardial effusion. There is a left atrial occlusion device. The thoracic aorta is normal in caliber show scattered calcifications without intramural hematoma. No noncontrast CT findings suspicious for aortic injury. MEDIASTINUM & GENE: No adenopathy or masses. LUNGS: No pulmonary infiltrate, nodule, or other focal abnormality. There are mild left basilar atelectatic changes. PLEURAL SPACE: No pleural effusions or pneumothorax. OSSEOUS & SOFT TISSUE: Left reverse total shoulder arthroplasty. Advanced right glenohumeral degenerative arthropathy with cephalad migration of the humeral head to abut the acromion, consistent with chronic right rotator cuff tear. Metallic radiopaque foreign body abutting the pleura above the right first rib and the axilla could reflect a surgical clip. The right first rib is surgically absent. There are spinal degenerative changes. ABDOMEN/PELVIS: LIVER: Mild hypertrophy of the left hepatic lobe, nonspecific. No liver masses or nodular contour. BILIARY SYSTEM: Gallbladder is unremarkable. Bile ducts are not dilated. PANCREAS: Mildly atrophic. Otherwise unremarkable. SPLEEN: Unremarkable ADRENALS: Unremarkable KIDNEYS & URETERS: Unremarkable BLADDER: There is marked urinary bladder distention without wall thickening. No filling defects identified. REPRODUCTIVE ORGANS: Nonvisualized uterus and ovaries, suggesting previous hysterectomy. GASTROINTESTINAL: Moderate stool throughout the large bowel in a pattern suggesting constipation. No findings of bowel obstruction, perforation or acute inflammation. The appendix is not well seen but there are no findings suggesting acute appendicitis MESENTERY/PERITONEUM/RETROPERITONEUM: Unremarkable VASCULAR: Extensive atherosclerotic calcifications in the abdominal aorta. No aneurysm. LYMPH NODES: No adenopathy OSSEOUS & SOFT TISSUES: Osteopenia and exaggeration lumbar lordosis with multilevel lumbar degenerative spondylosis but no acute fracture or aggressive appearing osseous lesions. IMPRESSION: No acute traumatic findings on noncontrast CT of the chest, abdomen, and pelvis. Numerous post surgical and degenerative changes in the skeletal and vascular systems as described. Correlate clinically for any evidence of urinary retention and constipation. Electronically signed by: Jamaal Duncan MD (01/25/2020 8:09 AM) [facility] [place]
[2020-01-25 08:51] VITALS: BP 168/82
[2020-01-25] MEDS ORDERED: LIDO1ADH63 TP (08:54)
[2020-01-25] MEDS ORDERED: LIDOCAINE (700MG/PATCH) PATCH. TD SCH (09:00)
[2020-01-25] MEDS ORDERED: PATCH REMOVAL. MC SCH (21:00)
== END 2020-01-25 08:55 | disposition home or self-care (01) ==
LOC: ER 06:58
DX: S51.011A Laceration without foreign body of right elbow, initial encounter (principal); R07.89 Other chest pain; R10.9 Unspecified abdominal pain; I48.91 Unspecified atrial fibrillation; M19.90 Unspecified osteoarthritis, unspecified site; J44.9 Chronic obstructive pulmonary disease, unspecified; K21.9 Gastro-esophageal reflux disease without esophagitis; I11.9 Hypertensive heart disease without heart failure; E78.00 Pure hypercholesterolemia, unspecified; E03.9 Hypothyroidism, unspecified; I25.2 Old myocardial infarction; Z90.89 Acquired absence of other organs; Z90.710 Acquired absence of both cervix and uterus; Z98.890 Other specified postprocedural states; W18.39XA Other fall on same level, initial encounter; Y93.89 Activity, other specified; Y92.89 Other specified places as the place of occurrence of the external cause; Y99.8 Other external cause status
CPT/HCPCS: 71250; 73080; 74176; 90471; 90715; 99285

== ENCOUNTER 2020-05-21 05:48 | Emergency (ER) | payer OTHER, MEDICAID ==
[~2020-05-21] VITALS: Ht 149.9 cm; Wt 53.2 kg
[~2020-05-21 05:48] MED LIST changes: +AMLO-186 PO; -AMLO5TAB10 PO; +LIDO1ADH63 TP
--- NOTE | 2020-05-21 06:47 | RAD ---
EXAM: 3 views right ankle 3 views right foot DATE: 05/21/2020 6:22 AM INDICATION: Reason: RIGHT FOOT PAIN, RIGHT ANKLE PAIN / Spl. Instructions: / History: COMPARISON: No Prior FINDINGS: Marked osteopenia limits evaluation for acute fracture. Ankle mortise is congruent. Talar dome is lesley ssly intact. Chondrocalcinosis. Calcaneal enthesopathy. Vascular calcifications are seen. Facet align ment of the foot limited given nonweightbearing views and suboptimal projections. Multifocal degenera tive changes most prominent the midfoot. Mild forefoot soft tissue swelling is seen. Soft tissue swel ling is also seen about the ankle. No evidence of acute fracture or dislocation. IMPRESSION: 1. Soft tissue swelling about the forefoot and hindfoot without evidence for acute fracture or dislo cation, within the constraints of osteopenia. If there is persistent clinical concern for fracture, f ollow-up radiographs in 10-14 days is recommended otherwise further evaluation with MRI can be perfor med. 2. Abnormal hindfoot alignment is suspected although evaluation limited given nonweightbearing proje ctions. 3. Multifocal degenerative changes most prominent at the midfoot. Electronically signed by: Brad Trimble MD (05/21/2020 6:44 AM) [id number]
--- NOTE | 2020-05-21 06:54 | PHYS DOC ---
Past Medical History Past Medical History: A-Fib, Arthritis, CAD, CHF, COPD, Diabetes-Type II, GERD, High Cholesterol, Hypertension, Hypothyroid, DE, UTI Additional Past Medical Histor: esophagitis, hemorrhoids, hyperlipidemia, hiatal hernia, gastroparesis, RA Past Surgical History: Appendectomy, Hysterectomy, Tonsillectomy Additional Past Surgical Histo: cardiac cath, L ROTATOR CUFF Smoking Status: Never Smoker Alcohol Use: None Drug Use: None General Adult EDM: Chief Complaint: LOWER EXT PAIN HPI: HPI: Patient is a 80 year old female who presented to ER for evaluation of right foot, right ankle, right leg pain since yesterday. Patient has severe arthritis, she is wheelchair-bound. Patient denies any injury. Patient denies any chest pain, no trouble breathing. Patient denies any cough or fever. Patient is complaining of pain behind her right calf. Review of Systems: Review of Systems: Constitutional: Denies fever or chills. [] Eyes: Denies change in visual acuity. [] HENT: Denies nasal congestion or sore throat. [] Respiratory: Denies cough or shortness of breath. [] Cardiovascular: Denies chest pain or edema. [] GI: Denies abdominal pain, nausea, vomiting, bloody stools or diarrhea. [] : Denies dysuria. [] Musculoskeletal: Denies back pain or joint pain. [] Integument: Denies rash. [] Neurologic: Denies headache, focal weakness or sensory changes. [] Endocrine: Denies polyuria or polydipsia. [] Lymphatic: Denies swollen glands. [] Psychiatric: Denies depression or anxiety. [] Heart Score: Risk Factors: Risk Factors: DM, Current or recent (<one month) smoker, HTN, HLP, family history of CAD, obesity. Risk Scores: Score 0 - 3: 2.5% MACE over next 6 weeks - Discharge Home Score 4 - 6: 20.3% MACE over next 6 weeks - Admit for Clinical Observation Score 7 - 10: 72.7% MACE over next 6 weeks - Early Invasive Strategies Allergies: Allergies: Allergies Coded Allergies Type Severity Reaction Last Updated Verified Cephalexin Monohydrate Allergy Intermediate Hives 01/14/18 Yes codeine Allergy Intermediate 02/07/18 Yes latex Allergy Intermediate 05/12/14 Yes Physical Exam: PE: Constitutional: Well developed, well nourished, no acute distress, non-toxic appearance. [] HENT: Normocephalic, atraumatic, bilateral external ears normal, oropharynx moist, no oral exudates, nose normal. [] Eyes: PERRLA, EOMI, conjunctiva normal, no discharge. [] Neck: Normal range of motion, no tenderness, supple, no stridor. [] Cardiovascular:Heart rate regular rhythm, no murmur [] Lungs & Thorax: Bilateral breath sounds clear to auscultation [] Abdomen: Bowel sounds normal, soft, no tenderness, no masses, no pulsatile masses. [] Skin: Warm, dry, no erythema, no rash. [] Back: No tenderness, no CVA tenderness. [] Extremities: RIGHT LEG IS TENDER TO PALPATION ON CALF, NO SWELLING, RIGHT ANKLE AND RIGHT FOOT, TOE WITH ARTHRITIC CHANGE. Neurologic: Alert and oriented X 3, normal motor function, normal sensory function, no focal deficits noted. [] Psychologic: Affect normal, judgement normal, mood normal. [] Current Patient Data: Vital Signs: Vital Signs Date Time Temp Pulse Resp B/P (MAP) Pulse Ox O2 Delivery O2 Flow Rate FiO2 05/21/20 06:05 98.2 78 20 136/68 (90) 94 Room Air 98.2 EKG: EKG: [] Radiology/Procedures: Radiology/Procedures: [facility] [address] [place] [address] IMAGING REPORT Signed PATIENT: JUANY STEARNS MACCOUNT: [id number] : 1940 LOCATION: ER AGE: 80 SEX: F EXAM STATUS: REG ER ORD. PHYSICIAN: LYDIA SIDDIQUI DO REASON: right leg pain since yesterday, wheelchair bound PROCEDURE: VENOUS LOWER EXTREMITY RIGHT Right lower extremity venous duplex Doppler ultrasound HISTORY: Right leg pain. FINDINGS: No DVT by grayscale sonography with compressibility, patent color Doppler blood flow and augmentation of blood flow the right common femoral vein, profunda femoral vein, superficial femoral vein and popliteal vein. No DVT evident with patent color Doppler blood flow the posterior tibial peroneal veins in the calf. IMPRESSION: Negative right leg for DVT. Electronically signed by: Jameson Norton MD (05/21/2020 7:14 AM) [id number] DICTATED and SIGNED BY: JAMESON NORTON MD DATE: 05/21/20 [id number] [facility] [address] [place] [address] IMAGING REPORT Signed PATIENT: JUANY STEARNS MACCOUNT: [id number] : 1940 LOCATION: ER AGE: 80 SEX: F EXAM STATUS: REG ER ORD. PHYSICIAN: LYDIA SIDDIQUI DO REASON: RIGHT FOOT PAIN, RIGHT ANKLE PAIN PROCEDURE: FOOT RIGHT 3V EXAM: 3 views right ankle 3 views right foot DATE: 05/21/2020 6:22 AM INDICATION: Reason: RIGHT FOOT PAIN, RIGHT ANKLE PAIN / Spl. Instructions: / History: COMPARISON: No Prior FINDINGS: Marked osteopenia limits evaluation for acute fracture. Ankle mortise is congru ent. Talar dome is grossly intact. Chondrocalcinosis. Calcaneal enthesopathy. Vascular calcifications are seen. Facet alignment of the foot limited given nonweightbearing views and suboptimal projections. Multifocal degenerative changes most prominent the midfoot. Mild forefoot soft tissue swelling is seen. Soft tissue swelling is also seen about the ankle. No evidence of acute fracture or dislocation. IMPRESSION: 1. Soft tissue swelling about the forefoot and hindfoot without evidence for acute fracture or dislocation, within the constraints of osteopenia. If there is persistent clinical concern for fracture, follow-up radiographs in 10-14 days is recommended otherwise further evaluation with MRI can be performed. 2. Abnormal hindfoot alignment is suspected although evaluation limited given nonweightbearing projections. 3. Multifocal degenerative changes most prominent at the midfoot. Electronically signed by: Brad Rosales MD (05/21/2020 6:44 AM) [facility] DICTATED and SIGNED BY: BRAD ROSALES MD DATE: 05/21/20 [id number] 0 Course & Med Decision Making: Course & Med Decision Making Pertinent Labs and Imaging studies reviewed. (See chart for details) Patient is an 80-year-old female who presented to ER for evaluation of right foot, right ankle, right leg pain since yesterday. Is atraumatic, she has history of arthritis, her pain is most likely from her arthritis. X-ray did not show any fracture of her foot or ankle. Venous Doppler her right leg did not show evidence of DVT. Patient will be discharged home. Cate Disclaimer: Cate Disclaimer: This electronic medical record was generated, in whole or in part, using a voice recognition dictation system. Departure Departure Impression: Primary Impression: DJD (degenerative joint disease), ankle and foot Disposition: 01 DC HOME SELF CARE/HOMELESS Condition: STABLE Referrals: NICOLLE WHITE MD (PCP) Follow-up with your doctor for reevaluation next week. Patient Instructions: Arthritis, Degenerative-Brief Additional Instructions: Thank you for visiting our Emergency Department. We appreciate you trusting us with your care. If any additional problems come up don't hesitate to return to visit us. Please follow up with your primary care provider so they can plan additional care if needed and know about the problem that you had. If symptoms worsen come back to the Emergency Department. Any concerning symptoms that start such as chest pain, shortness of air, weakness or numbness on one side of the body, running high fevers or any other concerning symptoms return to the ER. Scripts Hydrocodone Bit/Acetaminophen (HYDROCODONE-APAP 5-325 ) 1 Tab Tablet 1 TAB PO PRN Q6HRS PRN for PAIN for 3 Days, #15 TAB 0 Refills Prov: LYDIA SIDDIQUI DO 05/21/20 LYDIA SIDDIQUI DO May 21, 2020 06:54
--- NOTE | 2020-05-21 07:16 | RAD ---
Right lower extremity venous duplex Doppler ultrasound HISTORY: Right leg pain. FINDINGS: No DVT by grayscale sonography with compressibility, patent color Doppler blood flow and au gmentation of blood flow the right common femoral vein, profunda femoral vein, superficial femoral ve in and popliteal vein. No DVT evident with patent color Doppler blood flow the posterior tibial peron eal veins in the calf. IMPRESSION: Negative right leg for DVT. Electronically signed by: Quentin Norton MD (05/21/2020 7:14 AM) [id number]
[2020-05-21] MEDS ORDERED: HYDROcodone/APAP 5/325MG 1 TAB TABLET PO ONE (08:00)
[2020-05-21 08:12] VITALS: BP 104/78
[2020-05-21] MEDS ORDERED: HYDR-2761 PO (08:20)
== END 2020-05-21 09:17 | disposition home or self-care (01) ==
LOC: ER 05:48
DX: M19.071 Primary osteoarthritis, right ankle and foot (principal); I48.91 Unspecified atrial fibrillation; J44.9 Chronic obstructive pulmonary disease, unspecified; E78.00 Pure hypercholesterolemia, unspecified; I11.0 Hypertensive heart disease with heart failure; I50.9 Heart failure, unspecified; K21.9 Gastro-esophageal reflux disease without esophagitis; E03.9 Hypothyroidism, unspecified; I25.10 Atherosclerotic heart disease of native coronary artery without angina pectoris; I25.2 Old myocardial infarction; Z88.1 Allergy status to other antibiotic agents; Z88.5 Allergy status to narcotic agent; Z91.040 Latex allergy status
CPT/HCPCS: 73610; 73630; 93971; 99284-25